=== PATIENT | female | born 1940 | race Caucasian/White ===

== ENCOUNTER 2022-04-12 16:24 | Outpatient (RCR) | payer MEDICARE, OTHER, SELFPAY ==
--- NOTE | 2022-04-12 17:57 | PT.OPEX ---
PT [place] Outpatient Eval PT [facility] Outpatient Eval Start: 04/12/22 11:50 Freq: Status: Active Protocol: Document 04/12/22 11:50 PAPO (Rec: 04/12/22 11:53 PAPO [id number]) E-signed By Sergio Siddiqi PT Physical Therapy Outpatient Evaluation Insurance Information Insurance Name Medicare B Insurance Information/Comments [facility] Medical Diagnosis Right knee OA Treating Diagnosis Right knee pain Decreased right knee ROM Referring MD Montalvo Subjective Subjective Pt. states that she will be having a right TKA surgery next week due to progressive OA symptoms. She lives with her in indep. living apartment with assisted living attached at the [facility]. She will either be going to a SNF or to her son's home following DC from hospital. If she goes to her son's, she will be on one floor with 7 steps and railings from main floor with bedroom and bathroom on that level. She has a walker, cane, raised toilet seat and a shower chair at her son's home . PMH includes diabetes, CA and OA. She hasn't been using an assistive device up until this point. Pain Comments 06/08 Date of Last Physician Visit 03/05/22 Date of Surgery (If applicable) 04/17/22 Preferred Name Destiney Objective Range of Motion 5-10 degree extension lag Strength 4/5 quad set on right Swelling mild Assessment Assessment/Impression Objectively, pt. demonstrates; 5-10 degree right knee extension lag with 125 degrees of flexion; 4/5 right quad setting/strength; ambulation without assistive device; good UE ROM and strength; and fair /good core strength. She will benefit from skilled therapy for a one time education/ instruction in pre/post. operative HEP, and then therapy 2 times a week after surgery. Primary Functional Limitations walking, steps, squatting, dancing Plan of Care Rehabilitation Potential Excellent Physical Therapy Goals 1. Pt. will be indep. with HEP for self maintenance in 10-12 weeks. 2. Pt. will be able to walk without assistive device in 10 -12 weeks. 3. Pt. will demonstrate improved/fucntional quad and core strength in 10-12 weeks. 4. Pt. will demonstrate functional knee AROM to allow regular ADL's in 10-12 weeks. Coordination/Communication With Referral Source Treatment Plan/Direct Interventions Gait Training,Ice/Cold/ Vasopneumatic,Joint Mobilization,Manual Therapy, Neuromuscular Re-ed,Self-Care/ Home Management,Therapeutic Activities,Therapeutic Exercises Frequency/Duration One pre-op visit, then skilled therapy 2 times a week for 6- 8 weeks following surgery. Patient Will Be Discharged From Therapy Independent w/HEP, Independently Progressing Evaluation Billing Complexity Moderate Certification Information Initial Certification Date 04/12/22 Ending Certification Date 07/05/22 Provider Signature Shows Agreement With POC & Medical Necessity Physician Signature & Date Requested Please Sign/Date Here Physician Comment/Change : Physician NPI Number #
== END 2022-06-01 14:33 | disposition home or self-care (01) ==
PROVIDERS: Visit Provider Orthopaedic Surgery
DX: Z96.651 Presence of right artificial knee joint (principal); Z51.89 Encounter for other specified aftercare
CPT/HCPCS: 97110; 97162

== ENCOUNTER 2022-04-18 16:58 | Inpatient (IN) | payer MEDICARE, SELFPAY ==
--- NOTE | 2022-04-11 11:16 | PC.SOCIAL ---
Spoke with pt.'s daughter Jaelyn at [phone] regarding pt.'s upcoming surgery for a RTK on 04/17. Pt. lives independently at [facility] and family have noticed increased forgetfullness. Pt.'s father has a walker an cannot assist at home. Jaelyn and her brother cannot take pt. to their homes due to multiple stairs. Jaelyn wants to pursue a TCU bed for pt. at discharge. Discussed the limits of TCU bed availability. Jaelyn plans to call [facility] to see if pt. can have services after surgery if a TCU bed cannot be found. director field services will work on TCU placement after pt.'s surgery if no other safe discharge options are available.
[2022-04-17] VITALS (33 sets, daily range): BP systolic 126–171; BP diastolic 65–92; PULSE 7–91; RESP 14–16; TEMP 35.9–36.6; O2SAT 91–100; BMI 20.9
[2022-04-17] MEDS: ACETAMINOPHEN 500 MG TABLET 1000 MG PO ×3 (07:40→23:57)
[2022-04-17] MEDS: CELECOXIB 200 MG CAPSULE PO ×2 (07:40→21:11)
[2022-04-17] MEDS: OXYCODONE (CR) 10 MG TAB.ER.12H PO (07:40)
[2022-04-17] MEDS: SODIUM CHLORIDE 0.9 % (FLUSH) 10 ML SYRINGE IVF (08:00)
[2022-04-17] MEDS: LACTATED RINGERS 1000 ML 1,000 ML 100 ML IV (08:00)
[2022-04-17] MEDS: fentaNYL 100 MCG/2 ML inj IVP (08:30)
[2022-04-17] MEDS: MIDAZOLAM HCL 1 MG/ML inj IVP (08:30)
--- NOTE | 2022-04-17 08:37 | SUR.PREOP ---
TIME?OUT:?0829 PT/RN/MDA?VERIFICATION?OF?SURGICAL?SITE,?PROCEDURE,?AND?CONSENT OBTAINED?PRIOR?TO?INVASIVE?PROCEDURE.
[2022-04-17] MEDS: CEFAZOLIN 2 GM INJ IVP (09:42)
--- NOTE | 2022-04-17 10:14 | W.PM.NB ---
Nerve Block Nerve Block Time Seen by Provider: 08:34 Date Seen: 04/17/22 Type of block requested by surgeon for post-operative analgesia: adductor canal Side: right Time out performed: Yes Verification of patient name: Yes Verification of date of : Yes Site marking: site marked Name of person performing procedure: Marcel Continuous monitoring Was continuous monitoring of O2 sat, B/P, consulting marine engineer, recorded every 15 minutes?: Yes Procedure Checklist: sterile prep, needles and gloves Ultrasound guided. Images saved: Yes Medications given in 5ml increments after negative aspiration: Ropivicaine %: 0.5 mL: 20 Needle gauge: 20 Decadron (mg): 10 Precedex (mcg): 25 Patient tolerated procedure well: Yes Additional comments: Needle noted adjacent to nerve Block Charges Block Charge (with Pro Fee): Femoral Nerve Use of Ultrasound Machine for Block: Yes- US Guidance/pain block
--- NOTE | 2022-04-17 10:15 | P.NB_ITS ---
Nerve Block Nerve Block Time Seen by Provider: 08:34 Date Seen: 04/17/22 Type of block requested by surgeon for post-operative analgesia: geniculars Side: right Time out performed: Yes Verification of patient name: Yes Verification of date of : Yes Site marking: site marked Name of person performing procedure: Marcel Continuous monitoring Was continuous monitoring of O2 sat, B/P, ice cream freezer assistant, recorded every 15 minutes?: Yes Procedure Checklist: sterile prep, needles and gloves Medications given in 5ml increments after negative aspiration: Ropivicaine %: 0.5 mL: 9 Needle gauge: 25 Patient tolerated procedure well: Yes Block Charges Block Charge (with Pro Fee): Genicular Nerve Block Use of Ultrasound Machine for Block: No
--- NOTE | 2022-04-17 11:01 | CRLHL7_ITS ---
For Patients: As a result of the Cures Act, medical imaging exams and procedure reports are released immediately into your electronic medical record. You may view this report before your referring provider. If you have questions, please contact your health care provider. Indication: POST OPERATIVE Technique: Two views right knee Findings/Impression: Hardware from a right total knee arthroplasty is in satisfactory position. Bone alignment is normal. No sign of acute fracture. Postop changes are within normal limits. Dictated by Gus Bravo MD @ 04/17/2022 12:12:27 PM (Electronically Signed)
--- NOTE | 2022-04-17 11:02 | P.ORPRC_ITS ---
Procedure Note Date of procedure: 04/17/22 Procedure: PREOPERATIVE DIAGNOSIS: Right knee osteoarthritis POSTOPERATIVE DIAGNOSIS: Right knee osteoarthritis NAME OF OPERATION: Right total knee arthroplasty SURGEON: Javid Montalvo MD BUSINESS EDUCATION TEACHER: ORLANDO Boo ANESTHESIA: Spinal ESTIMATED BLOOD LOSS: 0 mL COMPLICATIONS: None SPECIMENS: None DRAINS: None PREOPERATIVE ANTIBIOTICS: Ancef 1 g IMPLANTS: 1. J&J Attune #4 posterior stabilized femur 2. #3 fixed-bearing tibia 3. #4 posterior stabilized, 5 mm fixed-bearing polyethylene 4. 35 patella INDICATIONS: The patient is a 81-year-old with a longstanding history of severe, unrelenting right knee pain secondary to end-stage (grade IV) right knee osteoarthritis. Despite appropriate nonoperative management, including activity modification, anti-inflammatories, diyf-wcl-amzogll pain medication, bracing, physical therapy, and injections they continue to have pain and disability. Operative intervention was offered. The risks, benefits and expected outcomes were discussed in detail. These included but were not limited to: Infection, bleeding, injury to blood vessel or nerve, venous thromboembolism. All questions were answered to their satisfaction. Use of an assistant professor of mathematics was necessary throughout the case for patient positioning and safety, soft tissue retraction, and closure. PROCEDURE: Spinal anesthesia was administered. The patient was placed supine on the operating table. The assistant professor of mathematics made sure the patient was positioned appropriately. The lower extremity was prepped and draped in the usual sterile fashion. The limb was exsanguinated with the Jassi bandage. The pneumatic tourniquet was inflated to 300 mmHg. A standard anterior incision was made with the knee in flexion. Subcutaneous dissection was sharply taken through fascial layer #1. Full-thickness medial and lateral flaps were elevated. The assistant professor of mathematics retracted the soft tissues and protected them throughout the case. A standard medial parapatellar approach was made. The patella was everted. The infrapatellar fat pad was preserved. The menisci and cruciate ligaments were sharply d?brided. Marginal osteophytes were d?brided with the rongeur. The drill was used to penetrate the femoral canal. The canal was aspirated and irrigated with pulse lavage. The intramedullary femoral guide was placed for a 5-degree valgus cut, removing 10 mm off the distal femur. The saw was used to make the cut. Whitesides line and the trans epicondylar axis were marked. The femoral sizing guide was pinned onto the distal femur. Three degrees of external rotation nicely parallels the transepicondylar axis. Pins were placed for posterior referencing. The four-in-one cutting guide was pinned onto the distal femur. The anterior, posterior, and chamfer cuts were made. The assistant professor of mathematics protected the collateral ligaments. The box cutting guide was pinned. The box cuts were made. The boxed trial was placed and was an excellent fit. Drill holes for the lugs were made. Attention was then turned to the proximal tibia. The extramedullary tibial guide was placed for a neutral varus/valgus cut with 5 degrees of posterior slope, removing 1 mm based off the medial tibial surface. The assistant professor of mathematics protected the collateral ligaments and the neurovascular bundle. The saw was used to make the cut. Trial components were placed. The knee was nicely balanced in both flexion and extension. The trial components were removed. The tray was placed in appropriate rotation, parallel to our tibial cutting pins. It was pinned by the assistant professor of mathematics and the drill and the punch were used. The tray was removed. The punch was used again. We placed a bone plug in the femoral canal. Attention was then turned to the patella. Kashia patellar thickness was 21 mm. The lobster claw resection guide was used with the 7.5 mm tom. The saw was used to make the cut. Drill holes were made by the assistant professor of mathematics. The trial was placed and was an excellent fit. Cancellous surfaces were irrigated with pulse lavage and thoroughly dried by the assistant professor of mathematics. We cemented the tibial component, then the femoral component. We impacted the 5 mm polyethylene onto the tibial tray. The knee was brought into full extension. We then cemented the patellar component. Excessive cement was removed. The cement was allowed to harden. The knee was taken through a range of motion and was found to be nicely balanced in both flexion and extension. The patella tracks centrally. The assistant professor of mathematics did a three minute dilute Betadine solution soak. The assistant professor of mathematics irrigated the wound with 3 liters of normal saline via pulse lavage. The assistant professor of mathematics reapproximated the extensor mechanism with #1 Vicryl in an interrupted [id number] fashion. The assistant professor of mathematics then ran the extensor mechanism with a #1 PDO Stratafix. The assistant professor of mathematics closed the subcutaneous tissues with a 3-0 Stratafix and the skin with a running 3-0 Stratafix in a subcuticular fashion. Glue was used to seal the skin. The assistant professor of mathematics placed a dry dressing, YAMILETH stocking, and Polar Care. Sponge and needle counts were correct x2. The patient tolerated the procedure well. There were no apparent complications. They were carefully transferred to the hospital bed and taken to the postanesthesia care unit in satisfactory condition. PLAN: The patient will be mobilized with physical therapy. Aspirin will be used for DVT prophylaxis. They will be discharged to home once medically appropriate.
--- NOTE | 2022-04-17 11:44 | W.ANESCHARGE ---
Anesthesia Charges Start Date/Time Anesthesia Start Date: 04/17/22 Anesthesia Start Time: 09:33 Stop Date/Time Anesthesia Stop Date: 04/17/22 Anesthesia Stop Time: 11:42 Summary Emergency: No Extremes of Age: Over 70-CPT 29152
[2022-04-17] MEDS: fentaNYL 100 MCG/2 ML inj 50 MCG IVP ×2 (12:01→12:10)
[2022-04-17] MEDS: HYDROmorphone 0.5 mg/0.5 ml inj IVP (12:53)
--- NOTE | 2022-04-17 13:00 | W.ANESCHARGE ---
Anesthesia Charges Start Date/Time Anesthesia Start Date: 04/17/22 Anesthesia Start Time: 09:33 Stop Date/Time Anesthesia Stop Date: 04/17/22 Anesthesia Stop Time: 11:42 Summary Emergency: No Extremes of Age: Over 71-CPT 75799
[2022-04-17] MEDS: LACTATED RINGERS 1000 ML 1,000 ML 75 ML IV (15:04)
--- NOTE | 2022-04-17 15:11 | PM.IMCN1 ---
Date of Consult Patient: Other Consult date: 04/17/22 Requesting Physician: Orthopedics Primary Care Provider: Not a Local Provider Consult Narrative Reason for consult: Medical management of comorbidities Narrative: Sadia Madsen is a 81 year old female who presented to the hospital today for an elective right TKA. There were no surgical or anesthetic complications noted during procedure. Patient's H&P reviewed, PCP is Tate Moise at [facility]. Past medical history significant for: Type 1 DM, HTN, hyperlipidemia History of blood clots: No Postoperative plan: May require SNF placement, lives in [facility]. Son lives locally, daughter in [place]. Review of Systems Status of ROS: Reports: unobtainable due to medical condition Narrative: Patient notes mild nausea, denies chest pain. Complete review of systems unobtainable due to cognitive impairment. [facility] Medical History (Updated 04/17/22 @ 22:34 by Joseline Nicholson MD) History of intestinal obstruction Hyperlipidemia Hypertension Neuropathy Type 1 diabetes mellitus Surgical History (Updated 04/17/22 @ 22:33 by Joseline Nicholson MD) H/O arthroscopic knee surgery H/O section History of appendectomy History of lumpectomy of right breast Social History Smoking Status: Never smoker Do you use any of these nicotine containing products: None How often do you have a drink containing alcohol: monthly or less Alcohol type: wine How many standard drinks containing alcohol do you have on a typical day: 1 or 2 How often do you have six or more drinks on one occasion: Never AUDIT-C Alcohol total score: 1 Non-prescribed substance use: denies use Caffeine: Yes (coffee 4 cups/day 2 mini cans diet coke/week) Are you using contraception or practicing any form of control: No Meds Home Medications and Allergies Home Medications Medication Instructions Recorded Confirmed Type insulin lispro 100 unit/mL 5 - 7 unit subcut TIDWM 02/12/22 04/17/22 History subcutaneous pen gabapentin 100 mg capsule 200 mg PO HS 02/14/22 04/17/22 History insulin glargine 100 unit/mL (3 11 unit subcut HS 02/14/22 04/17/22 History mL) subcutaneous pen (Lantus Solostar U-100 Insulin) losartan 50 mg tablet 50 mg PO DAILY 02/14/22 04/17/22 History atorvastatin 20 mg tablet 20 mg PO HS 04/11/22 04/17/22 History multivitamin (Daily Multi-Vitamin 1 tab PO DAILY 04/11/22 04/17/22 History tablet) biotin 5 mg capsule 5 mg PO DAILY 04/16/22 04/17/22 History Allergies Allergy/AdvReac Type Severity Reaction Status Date / Time aspirin Allergy Unknown Verified 04/17/22 07:11 lisinopril Allergy Unknown Verified 04/17/22 07:11 Exam Narrative: Exam Narrative: GEN: Alert and pleasant, sitting comfortably in bed HEENT: Normal external ears, EOMIs bilaterally CV: RRR, No concerning murmurs, rubs, or gallops R: LCTA bilaterally without concerning wheezing, rales, or rhonchi Ext: wwp, no concerning edema Skin: No concerning skin lesions or rashes on exposed skin Neuro: Nonfocal Psych: Appropriate, cognitive impairment evident Const: Vital Signs, click to edit/add: Vital Signs - 24 hr 04/17/22 08:07 04/17/22 08:30 04/17/22 08:45 Temperature 97.7 F Pulse Rate 78 75 64 Pulse Rate [Right Pulse Oximeter] Respiratory Rate 16 16 14 Blood Pressure 143/68 H 157/87 H 167/80 H Blood Pressure [Le ft Arm] Pulse Oximetry 98 99 100 Oxygen Delivery Me thod Room Air Nasal Cannula Nasal Cannula Oxygen Flow Rate 2 2 04/17/22 08:35 04/17/22 08:40 04/17/22 11:37 Temperature 97.7 F Pulse Rate 70 70 61 Pulse Rate [Right Pulse Oximeter] Respiratory Rate 16 14 16 Blood Pressure 167/78 H 163/79 H 139/72 Blood Pressure [Le ft Arm] Pulse Oximetry 99 100 96 Oxygen Delivery Me thod Nasal Cannula Nasal Cannula Room Air Oxygen Flow Rate 2 2 04/17/22 12:00 04/17/22 12:20 04/17/22 11:40 Temperature Pulse Rate 67 68 63 Pulse Rate [Right Pulse Oximeter] Respiratory Rate 16 16 16 Blood Pressure 171/87 H 164/88 H 145/76 H Blood Pressure [Le ft Arm] Pulse Oximetry 95 97 95 Oxygen Delivery Me thod Room Air Room Air Oxygen Flow Rate 04/17/22 11:45 04/17/22 11:50 04/17/22 11:55 Temperature Pulse Rate 62 67 68 Pulse Rate [Right Pulse Oximeter] Respiratory Rate 16 16 16 Blood Pressure 160/81 H 162/84 H 167/83 H Blood Pressure [Le ft Arm] Pulse Oximetry 96 95 96 Oxygen Delivery Me thod Room Air Oxygen Flow Rate 04/17/22 12:05 04/17/22 12:10 04/17/22 12:15 Temperature 97.7 F Pulse Rate 67 66 68 Pulse Rate [Right Pulse Oximeter] Respiratory Rate 16 16 16 Blood Pressure 171/87 H 169/79 H 159/85 H Blood Pressure [Le ft Arm] Pulse Oximetry 95 97 99 Oxygen Delivery Me thod Room Air Oxygen Flow Rate 2 04/17/22 12:40 04/17/22 12:47 04/17/22 12:30 Temperature 96.6 F L Pulse Rate Pulse Rate [Right Pulse Oximeter] 71 69 Respiratory Rate 16 16 Blood Pressure Blood Pressure [Le ft Arm] 148/92 H 143/82 H Pulse Oximetry 91 92 91 Oxygen Delivery Me thod Room Air Room Air Oxygen Flow Rate 04/17/22 12:30 04/17/22 12:30 04/17/22 13:00 Temperature 96.6 F L 96.6 F L Pulse Rate 69 Pulse Rate [Right Pulse Oximeter] 69 72 Respiratory Rate 16 16 16 Blood Pressure Blood Pressure [Le ft Arm] 143/82 H 143/82 H 147/69 H Pulse Oximetry 91 95 Oxygen Delivery Me thod Room Air Room Air Room Air Oxygen Flow Rate 2 04/17/22 13:16 04/17/22 14:04 04/17/22 13:45 Temperature Pulse Rate Pulse Rate [Right Pulse Oximeter] 71 74 72 Respiratory Rate 16 16 16 Blood Pressure Blood Pressure [Le ft Arm] 143/71 H 141/81 H 145/79 H Pulse Oximetry 95 97 92 Oxygen Delivery Me thod Room Air Room Air Room Air Oxygen Flow Rate 04/17/22 13:30 04/17/22 14:15 04/17/22 15:09 Temperature Pulse Rate Pulse Rate [Right Pulse Oximeter] 7 L 75 76 Respiratory Rate 16 16 16 Blood Pressure Blood Pressure [Le ft Arm] 153/75 H 154/79 H 152/66 H Pulse Oximetry 91 97 96 Oxygen Delivery Me thod Room Air Room Air Room Air Oxygen Flow Rate Assessment and Plan Assessment and plan (1) History of knee replacement, total: Problem comment: - R, 04/17/[address] Montalvo Status: Acute (2) Type 1 diabetes mellitus: Problem comment: - last A1C 11/3003/30/22 - Wears CGM - continue home dose of insulin at mealtimes and at bedtime, sliding scale as needed Status: Acute (3) Uses self-applied continuous glucose monitoring device: Status: Acute Plan - continue home insulin dosing with sliding scale correction - schedule Tylenol for pain control, p.r.n. oxycodone - prophylaxis per orthopedic surgery team - continue home meds for comorbidities - may require SNF placement given cognitive impairment and impulsivity
[2022-04-17] MEDS: METOCLOPRAMIDE 10 MG TABLET 5 MG PO (15:39)
[2022-04-17] MEDS: hydrOXYzine pamoate 25 MG CAPSULE PO (15:40)
--- NOTE | 2022-04-17 16:04 | PC.SOCIAL ---
Discharge planning- Phone call to pt's daughter, Jaelyn, at [phone]. Informed Jaelyn that there are no openings at the three SNF's in [place]. This worker will contact SNF outside of [place]. Jaelyn stated she is ok with that. Jaelyn stated if we are unable to locate a SNF for pt that the last option would be for pt to go to pt's son's home in [place] with home health care PT/OT in place. Pt's son has a one story home that pt would be able to get around in. Social Work will keep pt's daughter updated. Contacted the following SNF's for possible placement. Social Work will continue to follow up as necessary. 1. [facility]- No open beds. 2. [facility]- No open beds the rest of the week. 3. [facility]- No open beds the rest of the week. 4. [facility] in [place]- Phone call to Fani in admissions. There is possibly an opening. Faxed referral to [phone]. 5. [facility] in [place]- Phone call to Ophelia in admissions. Left a voicemail inquiring on bed availability. 6. [facility] in [place]- Faxed referral to [phone] also emailed referral to [place] in admissions at [email or web address].
[2022-04-17] MEDS: CEFAZOLIN 1 GM in 0.9 % SODIUM CHLORIDE Mini-bag 100 ML IVPB (17:52)
[2022-04-17] MEDS: INSULIN LISPRO 100 UNITS/ML SUBCUT ×2 (17:54→21:47)
--- NOTE | 2022-04-17 18:25 | PC.NURSE ---
end of shift. pt has been pleasant but sadly she has dementia. back from surgery @ 1230. right knee pain 2-5 she got IV and po meds. dressing is C/D/I. cryo cuff to the knee. teds and plexi are on. IV is patent. she is a fall risk and alarms are on. she was incontinent. she is up with 1 assist walker and GB. she is in the chair. she is eating, drinking and voiding. Brief is now on. she knows here name and is not sure of place. IS to 500. BS was 283 we are using pt cell phone and Blood sugar disk on the right arm. she got 6 unit of insulin isabela and 3 units s/s 9 total. miley PICKETT double checked insulin.
[2022-04-17] MEDS: ATORVASTATIN 10 MG TABLET 20 MG PO (21:11)
[2022-04-17] MEDS: SENNOSIDES 1 TAB TABLET 2 TAB PO (21:11)
[2022-04-17] MEDS: ASPIRIN 81 MG TABLET EC PO (21:11)
[2022-04-18] VITALS (7 sets, daily range): BP systolic 100–120; BP diastolic 50–62; PULSE 80–88; RESP 16–18; TEMP 36.5–36.8; O2SAT 88–99
[2022-04-18] MEDS: INSULIN LISPRO 100 UNITS/ML SUBCUT ×4 (02:24→17:36)
[2022-04-18] MEDS: CEFAZOLIN 1 GM in 0.9 % SODIUM CHLORIDE Mini-bag 100 ML IVPB ×2 (02:25→09:03)
--- NOTE | 2022-04-18 07:31 | PC.NURSE ---
: pt pleasant. Pt moved to room 243 to be closer to nurses' station, Pt confused, needs frequent reorientation. Pt does not call appropriately, has set off bed alarm several times. A x 1 with gb and walker, pt needs to be reminded to use the walker. VSS. Cryo cuff on. Dressing to knee CDI.
[2022-04-18 07:44] LABS: Potassium* 4.7 mmol/L (3.6-5.1); Sodium* 131 mmol/L (135-149)
[2022-04-18 07:47] LABS: Blood Urea Nitrogen* 31 mg/dL (7-30); Creatinine* 0.7 mg/dL (0.5-1.5); Est. Creatinine Clearance* 33.86; Estimated Glomerular Filt Rate 87 ml/min
[2022-04-18 08:04] LABS: Basophils Percent Auto 0.1 % (0.0-3.0); Hematocrit 32.2 % (33.0-51.0); Hemoglobin* 11.1 gm/dL (12.0-16.0); Immature Granulocytes Pct Auto 0.2 %; Lymphocytes Percent Auto 5.1 % (20-44); Mean Corpuscular HGB Conc 35 gm/dL (32-36); Mean Corpuscular Hemoglobin 32 pg (26-34); Mean Corpuscular Volume 92 fL (80-100); Monocytes Percent Auto 7.1 % (0.0-11.0); Neutrophils Percent Auto 87.5 % (42.0-72.0); Platelet Count* 263 K/uL (140-440); RDW Coefficient of Variation % 13.1 % (11.5-15.5); Red Blood Count 3.49 m/uL (4.00-5.20); White Blood Count* 17.93 K/uL (4.50-11.00)
[2022-04-18 08:10] LABS: Slide Review Reflex No
[2022-04-18] MEDS: ACETAMINOPHEN 500 MG TABLET 1000 MG PO ×3 (09:01→17:35)
[2022-04-18] MEDS: CELECOXIB 200 MG CAPSULE PO ×2 (09:02→20:35)
[2022-04-18] MEDS: hydrOXYzine pamoate 25 MG CAPSULE PO ×2 (09:02→18:41)
[2022-04-18] MEDS: SENNOSIDES 1 TAB TABLET 2 TAB PO ×2 (09:02→20:34)
[2022-04-18] MEDS: LOSARTAN POTASSIUM 50 MG TABLET PO (09:02)
[2022-04-18] MEDS: ASPIRIN 81 MG TABLET EC PO ×2 (09:02→20:35)
--- NOTE | 2022-04-18 09:06 | PC.NURSE ---
Verified insulin humalog 9 units subcutaneous this am with NIEVES Savage
[2022-04-18 11:04] LABS: Prothrombin Time 14.8 Seconds
--- NOTE | 2022-04-18 11:54 | PM.ORPN ---
Subjective Subjective Time Seen by Provider: 08:00 Date Seen: 04/18/22 Principal diagnosis: Status post right total knee arthroplasty 04/17/2022 Interval history: Destiney is comfortable this morning in the recliner in her room. I asked her about her aspirin allergy. She has she does not recall having an allergy to aspirin, however recalls it not doing much for her. Her daughter is phoned to ask her about she is aspirin allergy. She states she does not have an allergy to aspirin and does not know why it is on her chart. Upon discharge Destiney will either go to her son's or to a care home facility. Imaging Center Manager is working on her discharge location. Ortho Exam Narrative Exam Narrative: Alert and oriented x1. Patient is in no acute distress. Converses without labored breathing. Hearing is grossly intact. Ambulates with a walker. Examination of the right knee shows dressing is intact. Mild effusion. Mild soft tissue edema about the right knee. Bilateral calves are soft and nontender. CMS intact right lower extremity. Const Vital Signs, click to edit/add: Vital Signs - 24 hr 04/17/22 12:00 04/17/22 12:20 04/17/22 11:55 Temperature Pulse Rate 67 68 68 Pulse Rate [Right Pulse Oximeter] Respiratory Rate 16 16 16 Blood Pressure 171/87 H 164/88 H 167/83 H Blood Pressure [Left Arm] Pulse Oximetry 95 97 96 Oxygen Delivery Method Room Air Room Air Oxygen Flow Rate 04/17/22 12:05 04/17/22 12:10 04/17/22 12:15 Temperature 97.7 F Pulse Rate 67 66 68 Pulse Rate [Right Pulse Oximeter] Respiratory Rate 16 16 16 Blood Pressure 171/87 H 169/79 H 159/85 H Blood Pressure [Left Arm] Pulse Oximetry 95 97 99 Oxygen Delivery Method Room Air Oxygen Flow Rate 2 04/17/22 12:40 04/17/22 12:47 04/17/22 12:30 Temperature 96.6 F L Pulse Rate Pulse Rate [Right Pulse Oximeter] 71 69 Respiratory Rate 16 16 Blood Pressure Blood Pressure [Left Arm] 148/92 H 143/82 H Pulse Oximetry 91 92 91 Oxygen Delivery Method Room Air Room Air Oxygen Flow Rate 04/17/22 12:30 04/17/22 12:30 04/17/22 13:00 Temperature 96.6 F L 96.6 F L Pulse Rate 69 Pulse Rate [Right Pulse Oximeter] 69 72 Respiratory Rate 16 16 16 Blood Pressure Blood Pressure [Left Arm] 143/82 H 143/82 H 147/69 H Pulse Oximetry 91 95 Oxygen Delivery Method Room Air Room Air Room Air Oxygen Flow Rate 2 04/17/22 13:16 04/17/22 14:04 04/17/22 13:45 Temperature Pulse Rate Pulse Rate [Right Pulse Oximeter] 71 74 72 Respiratory Rate 16 16 16 Blood Pressure Blood Pressure [Left Arm] 143/71 H 141/81 H 145/79 H Pulse Oximetry 95 97 92 Oxygen Delivery Method Room Air Room Air Room Air Oxygen Flow Rate 04/17/22 13:30 04/17/22 14:15 04/17/22 15:09 Temperature Pulse Rate Pulse Rate [Right Pulse Oximeter] 7 L 75 76 Respiratory Rate 16 16 16 Blood Pressure Blood Pressure [Left Arm] 153/75 H 154/79 H 152/66 H Pulse Oximetry 91 97 96 Oxygen Delivery Method Room Air Room Air Room Air Oxygen Flow Rate 04/17/22 15:14 04/17/22 15:00 04/17/22 16:00 Temperature 97.0 F L Pulse Rate Pulse Rate [Right Pulse Oximeter] 79 75 Respiratory Rate 16 Blood Pressure Blood Pressure [Left Arm] 139/72 Pulse Oximetry 96 94 Oxygen Delivery Method Room Air Oxygen Flow Rate 04/17/22 18:10 04/17/22 17:00 04/17/22 19:00 Temperature 97.8 F Pulse Rate Pulse Rate [Right Pulse Oximeter] 91 63 91 Respiratory Rate 14 16 16 Blood Pressure Blood Pressure [Left Arm] 137/84 126/67 137/65 Pulse Oximetry 95 95 97 Oxygen Delivery Method Room Air Room Air Room Air Oxygen Flow Rate 2 04/17/22 22:16 04/17/22 22:16 04/17/22 23:00 Temperature 97.7 F Pulse Rate Pulse Rate [Right Pulse Oximeter] 91 89 Respiratory Rate 16 16 Blood Pressure Blood Pressure [Left Arm] 130/65 Pulse Oximetry 97 97 Oxygen Delivery Method Room Air Oxygen Flow Rate 04/18/22 03:00 04/18/22 07:15 04/18/22 07:15 Temperature 97.7 F Pulse Rate Pulse Rate [Right Pulse Oximeter] 85 Respiratory Rate 16 16 Blood Pressure Blood Pressure [Left Arm] 105/52 L Pulse Oximetry 92 92 Oxygen Delivery Method Room Air Oxygen Flow Rate 04/18/22 07:15 04/18/22 11:00 Temperature 98.0 F Pulse Rate Pulse Rate [Right Pulse Oximeter] 85 80 Respiratory Rate 16 16 Blood Pressure Blood Pressure [Left Arm] 110/50 L Pulse Oximetry 93 Oxygen Delivery Method Room Air Oxygen Flow Rate Assessment and Plan Assessment and plan (1) History of knee replacement, total: Problem details: - R, 04/17/[address] Montalvo Status: Acute Assessment and Plan: Plan for discharge is to a care home facility or with her son as soon as this can be arranged by medical social worker. DVT prophylaxis includes aspirin 81 mg twice daily x1 month, Brendon stockings x1 month may remove for 1 hr per day, frequent ambulation Remove dressing in 1 week. Observe wound and phone Orthopedics with any questions or concerns Return to clinic in 1 week for a wound check Return to clinic in [address] Montalvo Minimize narcotic use. Wean off and discontinue soon as possible. Activities as tolerated. No strenuous activity. Outpatient physical therapy as scheduled if she goes to her sons. PT and OT daily at care home facility otherwise. Ice and elevate the operative extremity. No restriction on ice. Her discharge medications have been sent to her pharmacy. If she goes to care home facility, her medications will need to be sent elsewhere and canceled at her pharmacy. (2) Type 1 diabetes mellitus: Problem details: - last A1C 11/3003/30/22 - Wears CGM - continue home dose of insulin at mealtimes and at bedtime, sliding scale as needed Status: Acute (3) Uses self-applied continuous glucose monitoring device: Status: Acute
--- NOTE | 2022-04-18 12:30 | PC.SOCIAL ---
Discharge planning- Received a phone call from Easton at [facility] in [place]. [facility] has accepted pt for admission. [facility] is requesting PT/OT notes to submit to insurance for approval. Phone call from pt's daughter, Jaelyn, requesting an update. Informed Jaelyn that [facility] in [place] has accepted pt for admission and just has to get an insurance authorization. Jaelyn will discuss with her brother, Rajeev, on pt going to SNF. Jaelyn states that Rajeev would like to take pt to his home but she doesn't believe that family can meet pt's needs and wants to have a safe plan in place. Met with pt and pt's son, Rajeev ([phone]) in pt's room along with Arminda Petty from OT. Discussed SNF vs. pt going home with outpatient therapy. Rajeev states that he thinks the safest plan is for pt to go to a SNF. Faxed PT/OT notes to Easton. Easton will call social work when she has the approval. Social work will continue to follow up as necessary.
--- NOTE | 2022-04-18 16:03 | PM.IMPN1 ---
Progress Note: A&P Assessment and plan (1) History of knee replacement, total: Problem details: - R, 04/17/[address] Montalvo Status: Acute (2) Type 1 diabetes mellitus: Problem details: - last A1C 11/3003/30/22 - Wears CGM - continue home dose of insulin at mealtimes and at bedtime, sliding scale as needed Status: Acute (3) Uses self-applied continuous glucose monitoring device: Status: Acute (4) Osteoarthritis of right knee: Problem details: medial and patellofemoral compartment osteoarthritis Status: Acute Plan 1. Reviewed with patient and her son her status. 2. May be discharged from the hospital when we have safe discharge disposition plan. surgical services coordinator working with patient and son to try to establish this. 3. Continue with supportive efforts. 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 Feeling well and doing well. Tolerating physical and occupational therapy support services. Denies chest heaviness, pressure, tightness, or pain. Denies syncope or near-syncope. Denies orthostasis, lightheadedness, or vertigo. Denies nausea or vomiting. No dyspnea, dyspnea with exertion, paroxysmal nocturnal dyspnea, or orthopnea. Denies cough. No claudication. Ambulating the halls with walker with standby assist of 1. Exam Narrative: Exam Narrative: No acute distress. Appears comfortable. Alert and oriented to self, place, time, and even situation. Lungs clear to auscultation. Heart tones with regular rhythm. Abdomen is active bowel sounds, soft, nontender. Standby assist of 1 for transfer, station, and gait. Utilizes gait belt. No focal motor neurologic deficits. Const: Vital Signs, click to edit/add: Vital Signs - 24 hr 04/17/22 18:10 04/17/22 17:00 04/17/22 19:00 Temperature 97.8 F Pulse Rate [Right Pulse Oximeter] 91 63 91 Respiratory Rate 14 16 16 Blood Pressure [Le ft Arm] 137/84 126/67 137/65 Pulse Oximetry 95 95 97 Oxygen Delivery Me thod Room Air Room Air Room Air Oxygen Flow Rate 2 04/17/22 22:16 04/17/22 22:16 04/17/22 23:00 Temperature 97.7 F Pulse Rate [Right Pulse Oximeter] 91 89 Respiratory Rate 16 16 Blood Pressure [Le ft Arm] 130/65 Pulse Oximetry 97 97 Oxygen Delivery Me thod Room Air Oxygen Flow Rate 04/18/22 03:00 04/18/22 07:15 04/18/22 07:15 Temperature 97.7 F Pulse Rate [Right Pulse Oximeter] 85 Respiratory Rate 16 16 Blood Pressure [Le ft Arm] 105/52 L Pulse Oximetry 92 92 Oxygen Delivery Me thod Room Air Oxygen Flow Rate 04/18/22 07:15 04/18/22 11:00 Temperature 98.0 F Pulse Rate [Right Pulse Oximeter] 85 80 Respiratory Rate 16 16 Blood Pressure [Le ft Arm] 110/50 L Pulse Oximetry 93 Oxygen Delivery Me thod Room Air Oxygen Flow Rate Documenting provider has reviewed patient's vital signs: yes Labs Labs: Laboratory Results - last 24 hr 04/18/22 04/18/22 04/18/22 05:40 05:40 05:40 WBC 17.93 H RBC 3.49 L Hgb 11.1 L Hct 32.2 L MCV 92 MCH 32 MCHC 35 RDW Coeff of Cleo 13.1 Plt Count 263 Neut % (Auto) 87.5 H Lymph % (Auto) 5.1 L Green % (Auto) 7.1 Eos % (Auto) 0.0 Baso % (Auto) 0.1 Neut # (Auto) 15.70 H Lymph # (Auto) 0.90 Green # (Auto) 1.30 H Eos # (Auto) 0.00 Baso # (Auto) 0.00 INR 1.10 Sodium 131 L Potassium 4.7 BUN 31 H Creatinine 0.7 Estimated Creat Clear 33.86 Estimated GFR 87
--- NOTE | 2022-04-18 18:15 | PC.NURSE ---
end of shift.? pt is pleasant but sadly she has dementia. ?she was less confused today. ? right knee? pain 2-5? she got po meds. ?right knee dressing is C/D/I. ? cryo cuff to the knee.? teds and plexi are on.? SL is patent. ? she is a fall risk and alarms are on. ? she was incontinent. she has a brief on. ? she is up with 1 assist walker and GB. ? she is in the chair. ? she is eating, drinking and voiding. ? ? IS to 500. ? BS was 327/323/201? we are using pt cell phone and Blood sugar disk on the right arm. ? she got insulin. ?
[2022-04-18] MEDS: ATORVASTATIN 10 MG TABLET 20 MG PO (20:35)
[2022-04-18] MEDS: HYDROmorphone 0.5 mg/0.5 ml inj IVP (22:33)
[2022-04-19] MEDS: LORazepam 0.5 MG TABLET PO (01:23)
[2022-04-19] MEDS: ACETAMINOPHEN 500 MG TABLET 1000 MG PO (01:23)
[2022-04-19 03:00] VITALS: BP 115/66; PULSE 69; RESP 16; TEMP 36.4; O2SAT 96
--- NOTE | 2022-04-19 03:11 | ED.NURSE ---
Chart accessed due to family calling with concerns of glucose being low alert on his phone. MS RODNEY notified.
[2022-04-19 06:54] LABS: Basophils Absolute Auto 0.02 K/uL (0.00-0.30); Basophils Percent Auto 0.2 % (0.0-3.0); Eosinophils Absolute Auto 0.12 K/uL (0.00-0.50); Eosinophils Percent Auto 1.3 % (0.0-7.0); Hematocrit 28.1 % (33.0-51.0); Hemoglobin* 9.7 gm/dL (12.0-16.0); Immature Granulocytes Abs Auto 0.01 K/uL (0.00-0.30); Immature Granulocytes Pct Auto 0.1 %; Lymphocytes Percent Auto 15.6 % (20-44); Mean Corpuscular HGB Conc 35 gm/dL (32-36); Mean Corpuscular Hemoglobin 32 pg (26-34); Mean Corpuscular Volume 92 fL (80-100); Monocytes Percent Auto 9.2 % (0.0-11.0); Neutrophils Percent Auto 73.6 % (42.0-72.0); Platelet Count* 224 K/uL (140-440); RDW Coefficient of Variation % 13.4 % (11.5-15.5); Red Blood Count 3.07 m/uL (4.00-5.20); White Blood Count* 9.21 K/uL (4.50-11.00)
[2022-04-19 07:01] LABS: Slide Review Reflex No
[2022-04-19 07:07] LABS: Potassium* 4.1 mmol/L (3.6-5.1); Sodium* 131 mmol/L (135-149)
[2022-04-19 07:10] LABS: Creatinine* 0.7 mg/dL (0.5-1.5); Est. Creatinine Clearance* 33.86; Estimated Glomerular Filt Rate 87 ml/min
[2022-04-19 07:11] LABS: Blood Urea Nitrogen* 40 mg/dL (7-30)
--- NOTE | 2022-04-19 07:15 | P.ORPN_ITS ---
Subjective Subjective Time Seen by Provider: 07:00 Date Seen: 04/19/22 Principal diagnosis: Status post right total knee arthroplasty 04/17/2022 Interval history: Destiney is comfortable this morning. [facility] Ortho Exam Narrative Exam Narrative: Alert and oriented x1. Patient is in no acute distress. Converses without labored breathing. Hearing is grossly intact. Dressing clean, dry, and intact. Edema about the knee. Jayg-zi-bojweugf effusion. CMS intact right lower extremity. Const Vital Signs, click to edit/add: Vital Signs - 24 hr 04/18/22 11:00 04/18/22 16:15 04/18/22 16:15 Temperature 98.0 F 97.7 F Pulse Rate [Right Pulse Oximeter] 80 84 Respiratory Rate 16 18 Blood Pressure [Left Arm] 110/50 L 100/60 Pulse Oximetry 93 98 98 Oxygen Delivery Method Room Air Room Air 04/18/22 16:18 04/18/22 19:00 04/18/22 23:00 Temperature 98.2 F Pulse Rate [Right Pulse Oximeter] 84 88 Respiratory Rate 18 16 Blood Pressure [Left Arm] 119/62 Pulse Oximetry 96 88 Oxygen Delivery Method 04/18/22 23:00 04/18/22 23:00 04/19/22 03:00 Temperature 97.8 F 97.6 F Pulse Rate [Right Pulse Oximeter] 88 80 69 Respiratory Rate 16 18 16 Blood Pressure [Left Arm] 120/62 115/66 Pulse Oximetry 99 96 Oxygen Delivery Method Room Air Assessment and Plan Assessment and plan (1) History of knee replacement, total: Problem details: - R, 04/17/[address] Montalvo Status: Acute Assessment and Plan: Destiney will discharge when rn social work finds placement. Orthopedic discharge meds will need to be canceled and resent to the [facility]dc facility. (2) Type 1 diabetes mellitus: Problem details: - last A1C 11/3003/30/22 - Wears CGM - continue home dose of insulin at mealtimes and at bedtime, sliding scale as needed Status: Acute (3) Uses self-applied continuous glucose monitoring device: Status: Acute (4) Osteoarthritis of right knee: Problem details: medial and patellofemoral compartment osteoarthritis Status: Acute
[2022-04-19 07:29] LABS: INR 1.24 (0.91-1.10); Prothrombin Time 16.4 Seconds
--- NOTE | 2022-04-19 07:36 | PC.NURSE ---
VSS on RA. Patient and oriented with confusion. Pain managed with scheduled Tylenol and PRN Dilaudid and Ativan for sleep. patient was up in the ingram midnight looking for her . Difficult to redirect.
[2022-04-19 08:03] VITALS: BP 142/70; PULSE 86; RESP 16; TEMP 37; O2SAT 95
[2022-04-19] MEDS: LOSARTAN POTASSIUM 50 MG TABLET PO (08:58)
[2022-04-19] MEDS: ASPIRIN 81 MG TABLET EC PO (08:58)
[2022-04-19] MEDS: SENNOSIDES 1 TAB TABLET 2 TAB PO (08:58)
[2022-04-19] MEDS: CELECOXIB 200 MG CAPSULE PO (08:58)
[2022-04-19] MEDS: INSULIN LISPRO 100 UNITS/ML SUBCUT ×2 (08:59→13:30)
[2022-04-19 11:16] VITALS: BP 164/88; PULSE 69; RESP 16; TEMP 37
--- NOTE | 2022-04-19 12:03 | PC.SOCIAL ---
Discharge planning- Placed a follow up phone call to Easton in admissions at [facility] at [phone]. Easton informed that she received the approval from pt's insurance and would like to plan for a 3:00 pm admission at [facility]. Pt will will discharge from [facility] at 2:00 pm. Phone call to pt's son, Rajeev, at [phone]. There was no answer, left a voicemail for Rajeev. Phone call to pt's daughter, Jaelyn, at [phone]. There was no answer, left a voicemail. Provided update to charge nurse then was transferred into pt's room as son, Rajeev, was arriving in pt's room. Discussed discharge plans with pt's son. Pt's son will plan to transport pt to [facility] at 2:00 pm. Provided update to charge nurse along with [facility]'s fax number [phone], admissions email [email or web address], and nurse to nurse number for [facility] of [phone]. Social Work will follow up as necessary.
--- NOTE | 2022-04-19 12:26 | PC.SOCIAL ---
Completed preadmission screening for pt to admit to [facility] in [place] on 04/19/22. Confirmation #[id number]. E-mailed a copy to [facility] at [email or web address].
--- NOTE | 2022-04-19 14:15 | PC.NURSE ---
Pt. transferred to [facility] in [place]. Raeno-en-jwynf report given to Nurse Juanita at [facility].
--- NOTE | 2022-04-19 18:50 | P.DS_ITS ---
DS: Providers Provider Time Seen by Provider: 10:00 Date Seen: 04/19/22 Date of admission: 04/18/22 16:58 Primary care physician: Not a Local Provider Admitting Clinician: Javid Montalvo MD Consults: 04/17/22 12:32 Consult to Occupational Therapy [CONS] Routine Comment: Reason(s) for OT Consult:: ADLs Prior to Discharge Any Restrictions?:: See Comment Comment: See nursing activity order for any restrictions. Consult to Physical Therapy [CONS] Routine Comment: Ambulate in the ingram today. Reason(s) for PT Consult:: TKA TX Protocol POD#0 Any Restrictions?:: See Comment Comment: See nursing activity order for any restrictions. Consult to Physician [CONS] Routine Comment: Consulting Provider: Hospitalists Has provider been notified: No Consult to Mid Level Project Manager [CONS] Routine Comment: Reason for Consult:: Discharge Planning Needs Attending Physician on discharge: Javid Montalvo MD Date of Discharge: 04/19/22 DS: Diagnosis Discharge Diagnosis (1) Osteoarthritis of right knee: Status: Acute Problem details: medial and patellofemoral compartment osteoarthritis (2) History of knee replacement, total: Status: Acute Problem details: - R, 04/17/[address] 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 There were no surgical or anesthetic complications noted during procedure. On presentation to the hospital it became apparent that patient will require SNF placement postoperatively, that she lives in the [facility]. Son lives locally, daughter in [place]. Status at Discharge Functional status at discharge: uses cane/walker Overall status at discharge: patient is progressing back to baseline Time Spent with Patient Time attestation: Total time spent providing and/or coordinating discharge services: Time spent: Less than 30 minutes Exam Narrative: Exam Narrative: No acute distress.? Appears comfortable.? Alert and oriented to self, place, and in part to time and situation. She has been more sleepy this morning. Did receive lorazepam to help get sleep last night per Orthopedic surgery order. Lungs clear to auscultation.? Heart tones with regular rhythm.? Abdomen is active bowel sounds, soft, nontender.? Standby assist of 1 for transfer, station, and gait.? Utilizes gait belt. No focal motor neurologic deficits. Const: Vital Signs, click to edit/add: Vital Signs - 24 hr 04/18/22 19:00 04/18/22 23:00 04/18/22 23:00 Temperature 98.2 F Pulse Rate Pulse Rate [Right Pulse Oximeter] 88 88 Respiratory Rate 16 16 Blood Pressure Blood Pressure [Le ft Arm] 119/62 Pulse Oximetry 96 88 Oxygen Delivery Me thod 04/18/22 23:00 04/19/22 03:00 04/19/22 08:03 Temperature 97.8 F 97.6 F Pulse Rate Pulse Rate [Right Pulse Oximeter] 80 69 Respiratory Rate 18 16 Blood Pressure Blood Pressure [Le ft Arm] 120/62 115/66 Pulse Oximetry 99 96 95 Oxygen Delivery Me thod Room Air 04/19/22 08:03 04/19/22 11:16 Temperature 98.6 F 98.6 F Pulse Rate 69 Pulse Rate [Right Pulse Oximeter] 86 Respiratory Rate 16 16 Blood Pressure 164/88 H Blood Pressure [Le ft Arm] 142/70 H Pulse Oximetry 95 Oxygen Delivery Me thod Room Air Documenting provider has reviewed patient's vital signs: yes DS: Data Data Completed and Pending Labs on day of discharge: Labs from last 24 hours 04/19/22 04/19/22 04/19/22 05:38 05:38 05:38 WBC 9.21 RBC 3.07 L Hgb 9.7 L Hct 28.1 L MCV 92 MCH 32 MCHC 35 RDW Coeff of Cleo 13.4 Plt Count 224 Neut % (Auto) 73.6 H Lymph % (Auto) 15.6 L [place] % (Auto) 9.2 Eos % (Auto) 1.3 Baso % (Auto) 0.2 Neut # (Auto) 6.80 Lymph # (Auto) 1.40 [place] # (Auto) 0.80 Eos # (Auto) 0.12 Baso # (Auto) 0.02 INR 1.24 H Sodium 131 L Potassium 4.1 BUN 40 H Creatinine 0.7 Estimated Creat Clear 33.86 Estimated GFR 87 Discharge Plan Discharge Disposition: Xfer SNF Date of Admission: 04/18/22 16:58 Attending Provider on Discharge: Javid Montalvo Consulting Providers: Anson Henriquez Primary Care Provider: Provider,Not a Local Condition: Stable Anticipated Discharge Date/Time: 04/19/22 11:30 Discharge Medications: New acetaminophen 500 mg capsule 500 - 1,000 mg PO Q6H MDD 4000mg per day PRN (Reason: pain) Qty: 100 0RF aspirin [Aspirin Childrens] 81 mg tablet,chewable 81 mg PO BID 30 Days Qty: 60 0RF oxycodone 5 mg Tablet 2.5 - 5 mg PO Q4-6H MDD 6 tabs per day PRN (Reason: Pain) Qty: 42 0RF Rx Instructions: Minimize. Discontinue as soon as possible sennosides [Senna Lax] 8.6 mg Tablet 17.2 mg PO BID PRN (Reason: constipation) Qty: 100 0RF Continued insulin lispro 100 unit/mL insulin pen 5 - 7 unit subcut TIDWM Rx Instructions: 5 UNITS WITH BREAKFAST 7 UNITS WITH LUNCH 6 UNITS WITH DINNER AND SLIDING SCALE CORRECTION insulin glargine [Lantus Solostar U-100 Insulin] 100 unit/mL (3 mL) insulin pen 11 unit subcut HS gabapentin 100 mg capsule 200 mg PO HS losartan 50 mg tablet 50 mg PO DAILY atorvastatin 20 mg tablet 20 mg PO HS multivitamin [Daily Multi-Vitamin] Tablet 1 tab PO DAILY biotin 5 mg capsule 5 mg PO DAILY Discharge Orders: Discharge Order (Routine); Ordered 04/19/22 Ordered By: Anson Henriquez Additional Instructions: Physical therapy and occupational therapy daily if discharging to a custodial facility Physical therapy outpatient as schedualed otherwise. Check blood sugar ACHS Activity Level: Activity as Tolerated and No strenuous activity Discharge Diet: Diabetic Follow Up Appointments: Keri Edmondson PA-C [Physician Amusement Ride Inspector] - 04/25/22 11:00 am Forms: Work/School Release Admit to: SNF Discharge Potential: Fair Length of Stay: <30 days Can use facility standing orders?: Yes Code Status: Full Code TEDs: Bilateral Knee Rehab Potential: Fair Therapy: Physical Therapy and Occupational Therapy Therapy Orders: Evaluate and Treat Orders are good >30 days: Yes Signature: Anson Henriquez
== END 2022-04-19 14:14 | DRG 470 ==
LOC: OR 23:19 → MEDSURG 04-19 08:27
PROVIDERS: Admitting Provider Orthopaedic Surgery; Visit Provider Orthopaedic Surgery
PROC: (CPT 27447; principal; 2022-04-17 10:00)
DX: M17.11 Unilateral primary osteoarthritis, right knee (principal); E10.40 Type 1 diabetes mellitus with diabetic neuropathy, unspecified; Z79.4 Long term (current) use of insulin; M25.561 Pain in right knee; Z97.8 Presence of other specified devices; G30.1 Alzheimer's disease with late onset; F02.80 Dementia in other diseases classified elsewhere, unspecified severity, without behavioral disturbance, psychotic disturbance, mood disturbance, and anxiety; I10 Essential (primary) hypertension; E78.5 Hyperlipidemia, unspecified
CPT/HCPCS: 01402; 36415; 64447; 64454; 73560; 76942; 82565; 82962; 84132; 84295; 84520; 85025; 85610; 94761; 97110; 97116; 97161; 97165; 97530; 97535; 99100; A9270; C1776; J0690; J1100; J1170; J2250; J2704; J2795; J3010; J7120

== ENCOUNTER 2022-05-17 07:58 | Outpatient (CLI) | payer MEDICARE, SELFPAY ==
--- NOTE | 2022-05-17 08:15 | CRLHL7_ITS ---
For Patients: As a result of the Century Cures Act, medical imaging exams and procedure reports are released immediately into your electronic medical record. You may view this report before your referring provider. If you have questions, please contact your health care provider. Technique: Double-contrast esophagram performed after the uneventful administration of effervescent crystals and thick barium followed by thin barium. Fluoroscopy time 42 second. Indication: Dysphagia Comparison: None. Findings: Normal passage of contrast through the esophagus. No stricture or ulcer. No achalasia or mass. No diverticulum. Tertiary contractions are present involving the distal esophagus with associated delayed esophageal clearance. Spontaneous reflux noted. A tiny sliding hiatal hernia is present. Impression: Large volume spontaneous reflux with distal esophageal reflux esophagitis and tiny sliding hiatal hernia. Delayed esophageal clearance. Dictated by Gus Bravo MD @ 05/17/2022 9:17:44 AM (Electronically Signed)
== END 2022-05-17 07:59 | disposition home or self-care (01) ==
PROVIDERS: PCP Family Medicine; Visit Provider Family Medicine
DX: R13.14 Dysphagia, pharyngoesophageal phase (principal); K21.9 Gastro-esophageal reflux disease without esophagitis
CPT/HCPCS: 74221

== ENCOUNTER 2022-08-02 12:56 | Emergency (ER) | payer MEDICARE, SELFPAY ==
[2022-08-02] VITALS (18 sets, daily range): BP systolic 102–201; BP diastolic 60–111; PULSE 70–82; RESP 18–20; O2SAT 92–100; BMI 20.6
--- NOTE | 2022-08-02 13:33 | CRLHL7_ITS ---
For Patients: As a result of the Century Cures Act, medical imaging exams and procedure reports are released immediately into your electronic medical record. You may view this report before your referring provider. If you have questions, please contact your health care provider. INDICATION: Fall TECHNIQUE: CT head without contrast. COMPARISON: None. FINDINGS: CSF spaces: Within normal limits for age. Brain parenchyma: Diffuse cerebral atrophy. Patterson-white differentiation is distinct. Mild low-density in the deep white matter. No mass effect or intracranial bleed. Skull base and calvarium: Trace mucosal thickening paranasal sinuses. Left temporomandibular joint osteoarthritis. The visualized orbits are grossly unremarkable. No skull fractures. IMPRESSION: 1. No calvarial fracture or intracranial bleed. 2. Cerebral atrophy with nonspecific white matter disease, likely microangiopathy. Please note that all CT scans at this facility use dose modulation, iterative reconstruction, and/or weight-based dosing when appropriate to reduce radiation dose to as low as reasonably achievable. Dictated by Iam Ratliff MD @ 08/02/2022 3:21:09 PM (Electronically Signed)
--- NOTE | 2022-08-02 13:33 | CRLHL7_ITS ---
For Patients: As a result of the Cures Act, medical imaging exams and procedure reports are released immediately into your electronic medical record. You may view this report before your referring provider. If you have questions, please contact your health care provider. INDICATION: Fall TECHNIQUE: CT cervical spine without contrast. COMPARISON: None FINDINGS: Vertebrae: Alignment is normal. There are no fractures or suspicious bony lesions. Discs and facet joints: Facet hypertrophy C2-3 without significant stenosis. Facet hypertrophy C3-4 causing moderate right foraminal stenosis. Facet hypertrophy C4-5 without significant stenosis. Facet hypertrophy and disc space narrowing C5-6 without significant stenosis. Facet hypertrophy with posterior osteophytes and some disc space narrowing at C6-7 causing mild right foraminal stenosis facet hypertrophy C7-T1 without significant stenosis. Extraspinal findings: Biapical pleural parenchymal scarring. Hypodense right lobe thyroid nodule measuring 7 millimeters. IMPRESSION: 1. Multilevel degenerative changes cervical spine without evidence of cervical spine fracture. 2. Hypodense nodule right lobe thyroid. Follow-up outpatient ultrasound suggested for further characterization. Please note that all CT scans at this facility use dose modulation, iterative reconstruction, and/or weight-based dosing when appropriate to reduce radiation dose to as low as reasonably achievable. Dictated by Iam Ratliff MD @ 08/02/2022 3:32:12 PM (Electronically Signed)
--- NOTE | 2022-08-02 13:40 | ED_ITS ---
HPI - Fall General Chief Complaint: Fall/Minor Trauma Stated Complaint: Fell this morning, injured nose Time Seen by Provider: 08/02/22 13:08 History of Present Illness HPI Narrative: Patient is 82-year-old woman who lives at the [facility]. She awoke this morning on the floor and was not certain how she got there. Patient has abrasion on the right side of her nose and across the bridge of her nose. She states that she did have bright red blood on the her nose which woke up this morning but she has no further bleeding. She does take aspirin 81 mg daily. Patient has had other similar episodes of confusion as well as other of previous falls. Patient has no memory of the events. Patient went to physical therapy this morning and due to the obvious damage to her nose she was sent in for further evaluation. Patient states that she has no pain or other difficulties. Patient otherwise is feeling well. Her son is with her who corroborates that the patient's memory is worsening. She has long-term diabetic and her blood sugars have been somewhat labile. Patient has had brief periods of confusion throughout the day the last several weeks. Related Data Home Medications Medication Instructions Recorded Confirmed insulin lispro 100 unit/mL 5 - 7 unit subcut TIDWM 02/12/22 06/06/22 subcutaneous pen gabapentin 100 mg capsule 200 mg PO HS 02/14/22 06/06/22 insulin glargine 100 unit/mL (3 11 unit subcut HS 02/14/22 06/06/22 mL) subcutaneous pen (Lantus Solostar U-100 Insulin) losartan 50 mg tablet 50 mg PO DAILY 02/14/22 06/06/22 atorvastatin 20 mg tablet 20 mg PO HS 04/11/22 06/06/22 multivitamin (Daily Multi-Vitamin 1 tab PO DAILY 04/11/22 06/06/22 tablet) biotin 5 mg capsule 5 mg PO DAILY 04/16/22 06/06/22 Previous Rx's Medication Instructions Recorded acetaminophen 500 mg capsule 500 - 1,000 mg PO Q6H PRN pain 04/19/22 #100 caps aspirin 81 mg chewable tablet 81 mg PO BID for DVT prophylaxis 04/19/22 (Aspirin Childrens) 30 days #60 tabs Allergies Allergy/AdvReac Type Severity Reaction Status Date / Time No Known Drug Allergies Allergy Verified 08/02/22 13:08 Review of Systems Status of ROS: Reports: 10 or more systems reviewed and unremarkable except as noted in History and below [facility] Medical History History of intestinal obstruction ?Z87.19 - Personal history of other diseases of the digestive system (ICD-10) Hyperlipidemia ?E78.5 - Hyperlipidemia, unspecified (ICD-10) Hypertension ?I10 - Essential (primary) hypertension (ICD-10) Neuropathy ?G62.9 - Polyneuropathy, unspecified (ICD-10) Type 1 diabetes mellitus ?E10.9 - Type 1 diabetes mellitus without complications (ICD-10) Surgical History H/O arthroscopic knee surgery ?Z98.890 - Other specified postprocedural states (ICD-10) H/O section ?Z98.891 - History of uterine scar from previous surgery (ICD-10) History of appendectomy ?Z90.49 - Acquired absence of other specified parts of digestive tract (ICD- 10) History of lumpectomy of right breast ?Z98.890 - Other specified postprocedural states (ICD-10) 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) ?Z96.651 - Presence of right artificial knee joint (ICD-10) Social History Smoking Status: Never smoker Do you use any of these nicotine containing products: None Second hand tobacco smoke exposure: No How often do you have a drink containing alcohol: never How often do you have six or more drinks on one occasion: Never AUDIT-C Alcohol total score: 0 Non-prescribed substance use: denies use Caffeine: Yes (coffee 4 cups/day 2 mini cans diet coke/week) Are you using contraception or practicing any form of control: No service: No Exam Narrative: Exam Narrative: EXAM GENERAL: Patient appears comfortable and well. Slight swelling an minor bruising across the bridge of the nose. EYES: No scleral icterus. THYROID: no thyroid nodules or thyromegaly. LYMPH: No supraclavicular or cervical lymphadenopathy. SKIN: Visible skin seen during exam normal or with benign process only. EXT: No dependent lower extremity pedal edema. HEART: Regular rate and rhythm with no murmurs, rubs, or gallops. LUNGS: Clear to auscultation bilaterally with no crackles or wheezes. ABD: Soft, non tender, non distended. PSYCH: Good eye contact, speech is not pressured. Musculoskeletal no focal defects Neurologic: Cranial nerves 2-12 grossly intact no focal defects. Const: Vital Signs, click to edit/add: Vital Signs - 24 hr 08/02/22 13:09 08/02/22 13:25 08/02/22 13:51 Pulse Rate 79 Pulse Rate [Pulse Oximeter] 82 81 Respiratory Rate 20 18 Blood Pressure Blood Pressure [Ri ght Upper Arm] 119/60 102/60 Pulse Oximetry 97 98 100 Oxygen Delivery Me thod Room Air Room Air 08/02/22 14:14 08/02/22 14:15 08/02/22 14:30 Pulse Rate 81 80 75 Pulse Rate [Pulse Oximeter] Respiratory Rate Blood Pressure Blood Pressure [Ri ght Upper Arm] Pulse Oximetry 95 97 98 Oxygen Delivery Me thod 08/02/22 14:32 08/02/22 14:45 08/02/22 15:00 Pulse Rate 74 71 74 Pulse Rate [Pulse Oximeter] Respiratory Rate Blood Pressure 188/111 H Blood Pressure [Ri ght Upper Arm] Pulse Oximetry 98 97 99 Oxygen Delivery Me thod 08/02/22 15:02 08/02/22 15:15 08/02/22 15:30 Pulse Rate 74 70 72 Pulse Rate [Pulse Oximeter] Respiratory Rate Blood Pressure 201/95 H Blood Pressure [Ri ght Upper Arm] Pulse Oximetry 98 97 99 Oxygen Delivery Me thod 08/02/22 15:32 Pulse Rate 75 Pulse Rate [Pulse Oximeter] Respiratory Rate Blood Pressure 173/111 H Blood Pressure [Ri ght Upper Arm] Pulse Oximetry 99 Oxygen Delivery Me thod Course Course Hospital Course: A this point patient is seen and examined. Other than the slight ecchymosis and bruising across her nose I see no obvious findings on exam. CT of the head and cervical spine CBC basic metabolic panel UA troponin EKG ordered. Vital Signs Vital signs: Initial Vital Signs Temperature Source Temporal Artery Scan 08/02/22 13:09 Pulse Rate 82 08/02/22 13:09 Pulse Rhythm Regular 08/02/22 13:09 Respiratory Rate 20 08/02/22 13:09 Blood Pressure 119/60 08/02/22 13:09 Blood Pressure Mean 79 08/02/22 13:09 Blood Pressure Position Supine 08/02/22 13:09 Pulse Oximetry 97 08/02/22 13:09 Oxygen Delivery Method Room Air 08/02/22 13:09 Vital Signs Pulse Rate 82 08/02/22 13:09 Respiratory Rate 20 08/02/22 13:09 Blood Pressure 119/60 08/02/22 13:09 Pulse Oximetry 97 08/02/22 13:09 Oxygen Delivery Method Room Air 08/02/22 13:09 Pulse Rate 75 08/02/22 15:32 Respiratory Rate 18 08/02/22 13:25 Blood Pressure 173/111 H 08/02/22 15:32 Pulse Oximetry 99 08/02/22 15:32 Oxygen Delivery Method Room Air 08/02/22 13:25 MDM - Fall MDM Narrative Medical decision making narrative: Patient is a 82-year-old woman who woke up on the floor in her apartment at the [facility]. She has a abrasion on the bridge of her nose but otherwise appears to be uninjured. Patient is a negative CT of the head and neck although she does have an incidental thyroid nodule. Laboratory studies including CBC troponin basic metabolic panel UA are all normal. Patient has a normal exam and reasonably normal vital signs. At this time patient is treated and released. Patient id has a history of progressive dementia and is under the care of a neurologist. I will recommend thyroid ultrasound as an outpatient. Differential Diagnosis Differential diagnosis: Likely syncope, compression fracture, concussion with loss of consciousness and concussion without loss of consciousness Lab Data Labs: Lab Results 08/02/22 08/02/22 Range/Units 13:33 13:55 WBC 7.93 (4.50-11.00) K/uL RBC 3.74 L (4.00-5.20) m/uL Hgb 11.8 L (12.0-16.0) gm/dL Hct 35.6 (33.0-51.0) % MCV 95 (80-100) fL MCH 32 (26-34) pg MCHC 33 (32-36) gm/dL RDW Coeff of Cleo 12.7 (11.5-15.5) % Plt Count 316 (140-440) K/uL Neut % (Auto) 69.1 (42.0-72.0) % Lymph % (Auto) 18.3 L (20-44) % Yell % (Auto) 7.8 (0.0-11.0) % Eos % (Auto) 4.2 (0.0-7.0) % Baso % (Auto) 0.3 (0.0-3.0) % Neut # (Auto) 5.49 (1.7-7.0) K/uL Lymph # (Auto) 1.50 (0.90-2.90) K/uL Yell # (Auto) 0.60 (0.00-0.90) K/UL Eos # (Auto) 0.33 (0.00-0.50) K/uL Baso # (Auto) 0.02 (0.00-0.30) K/uL Sodium 133 L (135-149) mmol/L Potassium 4.4 (3.6-5.1) mmol/L Chloride 101 (96-114) mmol/L Carbon Dioxide 30 (20-32) mmol/L BUN 20 (7-30) mg/dL Creatinine 0.6 (0.5-1.5) mg/dL Estimated Creat Clear 33.29 Estimated GFR 90 ml/min Glucose 179 H (60-115) mg/dL Calcium 9.1 (8.4-10.6) mg/dL Troponin I < 0.01 L (0.01-0.04) ng/mL Urine Color Yellow (Yellow) Urine Appearance Clear (Clear) Urine pH 7.0 (5.0-8.5) Ur Specific [place] 1.015 (1.000-1.030) Urine Protein Negative (Negative) Urine Glucose (UA) Trace A (Negative) Urine Ketones Negative (Negative) Urine Blood Negative (Negative) Urine Nitrite Negative (Negative) Urine Bilirubin Negative (Negative) Urine Urobilinogen 0.2 (0.2-1.0) Ur Leukocyte Esterase Negative (Negative) Discharge Plan Discharge Clinical Impression: Fall Patient Disposition: Home w/ Parent or Adult Condition: Stable Instructions: Fall Prevention for Older Adults (ED) Additional Instructions: Outpatient follow-up with your doctor to discuss thyroid nodule with possible ultrasound to follow. Resume previous care an outpatient evaluation with Neurology. Activity Level: No Restrictions Discharge Diet: Regular Prescriptions: No Action insulin lispro 100 unit/mL insulin pen 5 - 7 unit subcut TIDWM Rx Instructions: 5 UNITS WITH BREAKFAST 7 UNITS WITH LUNCH 6 UNITS WITH DINNER AND SLIDING SCALE CORRECTION insulin glargine [Lantus Solostar U-100 Insulin] 100 unit/mL (3 mL) insulin pen 11 unit subcut HS gabapentin 100 mg capsule 200 mg PO HS losartan 50 mg tablet 50 mg PO DAILY atorvastatin 20 mg tablet 20 mg PO HS multivitamin [Daily Multi-Vitamin] Tablet 1 tab PO DAILY biotin 5 mg capsule 5 mg PO DAILY acetaminophen 500 mg capsule 500 - 1,000 mg PO Q6H MDD 4000mg per day PRN (Reason: pain) Qty: 100 0RF aspirin [Aspirin Childrens] 81 mg tablet,chewable 81 mg PO BID 30 Days Qty: 60 0RF Follow Up/Referrals: Erik Ashton MD [Primary Care Provider] - Stand Alone Forms: MyHealth Info Instructions
[2022-08-02 14:01] LABS: Basophils Absolute Auto 0.02 K/uL (0.00-0.30); Basophils Percent Auto 0.3 % (0.0-3.0); Eosinophils Absolute Auto 0.33 K/uL (0.00-0.50); Eosinophils Percent Auto 4.2 % (0.0-7.0); Hematocrit 35.6 % (33.0-51.0); Hemoglobin* 11.8 gm/dL (12.0-16.0); Immature Granulocytes Abs Auto 0.02 K/uL (0.00-0.30); Immature Granulocytes Pct Auto 0.3 %; Lymphocytes Percent Auto 18.3 % (20-44); Mean Corpuscular HGB Conc 33 gm/dL (32-36); Mean Corpuscular Hemoglobin 32 pg (26-34); Mean Corpuscular Volume 95 fL (80-100); Monocytes Percent Auto 7.8 % (0.0-11.0); Neutrophils Absolute Auto 5.49 K/uL (1.7-7.0); Neutrophils Percent Auto 69.1 % (42.0-72.0); Platelet Count* 316 K/uL (140-440); RDW Coefficient of Variation % 12.7 % (11.5-15.5); Red Blood Count 3.74 m/uL (4.00-5.20); White Blood Count* 7.93 K/uL (4.50-11.00)
[2022-08-02 14:04] LABS: Slide Review Reflex No
[2022-08-02 14:14] LABS: Chloride* 101 mmol/L (96-114); Potassium* 4.4 mmol/L (3.6-5.1); Sodium* 133 mmol/L (135-149)
[2022-08-02 14:17] LABS: Blood Urea Nitrogen* 20 mg/dL (7-30); Carbon Dioxide* 30 mmol/L (20-32); Creatinine* 0.6 mg/dL (0.5-1.5); Est. Creatinine Clearance* 33.29; Estimated Glomerular Filt Rate 90 ml/min; Glucose* 179 mg/dL (60-115)
[2022-08-02 14:18] LABS: Calcium* 9.1 mg/dL (8.4-10.6)
[2022-08-02 14:28] LABS: Troponin I* < 0.01 ng/mL (0.01-0.04)
[2022-08-02 16:00] LABS: Appearance Urine Clear (Clear); Bilirubin Urine Negative (Negative); Blood Urine Negative (Negative); Color Urine Yellow (Yellow); Glucose Urine Trace (Negative); Ketones Urine Negative (Negative); Leukocyte Esterase Urine Negative (Negative); Nitrite Urine Negative (Negative); Protein Urine Negative (Negative); Specific Gravity Urine 1.015 (1.000-1.030); Urobilinogen Urine 0.2 (0.2-1.0)
--- NOTE | 2022-08-02 16:08 | ED.NURSE ---
walked to br. did well.
== END 2022-08-02 16:27 | disposition home or self-care (01) ==
PROVIDERS: Emergency Provider Internal Medicine; PCP Family Medicine
DX: S00.31XA Abrasion of nose, initial encounter (principal); W19.XXXA Unspecified fall, initial encounter
CPT/HCPCS: 36415; 70450; 72125; 80048; 81003; 84484; 85025; 93005; 99283; 99284

== ENCOUNTER 2022-10-02 14:45 | Outpatient (RCR) | payer MEDICARE, SELFPAY ==
--- NOTE | 2022-06-26 17:25 | PT.OPEX ---
PT [place] Outpatient Eval PT [facility] Outpatient Eval Start: 06/26/22 16:30 Freq: Status: Active Protocol: Document 06/26/22 16:31 STEVE (Rec: 06/26/22 17:23 STEVE [id number]) E-signed By Rosmery Akins PT Physical Therapy Outpatient Evaluation Insurance Information Insurance Name Medicare B,[employer] [facility] Insurance Information/Comments [facility] / [facility] Medical Diagnosis S/P RIGHT TKA Treating Diagnosis RIGHT KNEE STIFFNESS RIGTT KNEE WEAKNESS GAIT ABNORMALITY UNSTEADINESS ON FEET Referring MD DR. COLVIN Subjective Subjective I THINK HER KNEE IS CROOKED. I'M NOT THE EXPERT BUT I'M JUST PUTTING THAT OUT THERE. STATES THE SON WHO HAS BROUGHT HIS MOTHER TODAY. PATIENT STATES,I'M GUESS I JUST NEED TO GET A BET MORE GUIDANCE. 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 Preferred Name SANTOS Precautions Therapy Limitations/Systems Review Cognition Objective Other/Pertinent Objective GAIT/FUNCTIONAL MOBILITY Single leg stance: LEFT: 3 SEC / RIGHT: UNABLE Squat: QUARTER SQUAT WITH LIMITED LLE DOMINANT THROUGHOUT MOTION KNEE AROM-PROM SUPINE Flexion: 100-110 Extension: 20-12 HIP ROM : WFL'S LLE MMT: Hip flexion: 4/5 Hip abduction: 4-/5 Hip extension: 4/5 Knee flexion: 4-/5 Knee extension: 3/5 (LIMITED KNEE EXT) TX: HEEL SLIDES X 10 TKE X 10 SLR X 10 SEATED HR/TR X 10 KNEE EXT X 10 MARCHING X 10 SIT TO STAND X 10 Functional Test Performed & Score TU.8 TINETTI: 04/25 30 SEC STS: 6 Assessment Assessment/Impression PATIENT IS AN [address] CHRISTIANO COLVIN REFERRED TO PHYSICAL THERAPY S/P RIGHT TKA 04/17/22. PMHX INCLUDES BUT NOT LIMITED TO DEMENTIA OF ALZHEIMERS LATE ONSET, DMI, NEUROPATHY, HLD, OA RIGHT KNEE, H/O CA. PATIENT LIVES WITH HER SPOUSE AT [facility] WITH HER SON OR DTR IN LAW TRANSPORTING HER TO ALL HER APPTS. SHE HAD A F/U ON 06/06/[address] COLVIN ORDERING CONTINUED PHYSICAL THERAPY AND TO TRANSITION FROM [facility] THERAPIST TO HERE. HER SON IS CONCERNED THAT SHE IS NOT FAR SHE NEEDS TO BE DESPITE THE ORTHO REPORTING GOOD PROGRESS. TODAY, SHE IS PLEASANTLY CONFUSED WITH WHAT SHE HAS BEEN DOING ALONG THE LINES OF HER HEP BUT IS ABLE TO RECALL THEM WITH MOD PROMPTING. HER KNEE LACKS 20 DEGREES EXT WHICH HAS PROGRESSIVELY WORSENED SINCE HER INITAL POST OP F/O WHERE SHE HLACKED ONLY 5 AND HER LAST FOLLOW UP WHERE SHE LACKED 15 IN [place]. PATIENT HAS GROOD KNEE FLEX MEASURING 110-115 TODAY AND FAIR STRENGTH MEASURING 3/5 FOR KNEE EX AND 4/5 FOR KNEE FLEX AND HIP MUSCULATURE. SHE AMB W /O AN ASSISTIVE DEVICE BUT NOTABLE FWD TRUNK POSTURING, POOR FOOT CLEARANCE WITH SEVERAL INSTANCES OF STUMBLING . I RECOMENDED TO AT LEAST USE A SPC FOR UPRIGHT POSTURING WELL IMPROVED FOOT CLEARANCE TO BEGIN. PATIENT HAS A DIFFICULT TIME EXPRESSING HOW SHE IS FEELING AND STRUGGLES WITH LISTING ANY OF THE EXERCISES THAT SHE HAS PERFORMED SOMEWHAT CONSISTENTLY WITH AND W/O THE ASSISTANCE OF A THERAPIST AT [facility]. LASTLY, SHE DEMONSTRATES A SIGNIFICANT RISK FOR FALLS EVIDENCED BY A SCORE OF 12/ 28 ON THE TINETTI, 6 STS IN 30 SEC, AND 16.8 ON THE TUG. TODAY, SHE REQUIRES SEVERAL DEMONSTRATIONS AND CONSISTENT CUEING TO PERFORM THE EXERCISES PROVIDED PREOPERATIVELY WITH POOR BODY AWARENESS. SHE WOULD BENEFIT FROM SKILLED PHYSICAL THERAPY TO ADDRESS HER DECREASED ROM WITH AN EMPHASIS ON KNEE EXT, RLE STRENGTHENING, GT, FUNCTIONAL BALANCE TRAINING AND MOBILITY. TODAY, WE DISCUSSED THE FOCUS ON KNEE EXT PROVIDING HER HEP EXERCISES ONCE MORE WITH THE LAST EXERCISE BEING PASSIVE KNEE EXT PROPPED ON CHAIR. I DISCUSSED EA OF THE EXERCISES AND FOCUS AT THIS POINT WITH HER SON WITH BOTH VERBALIZING UNDERSTANDING AND IN AGREEMENT WITH POC AND FREQ. Primary Functional Limitations DIFFICULTY AMB WITH ABNORMAL GAIT DIFFICULTY WITH TRANSFERS POOR STRENGTH POOR ROM POOR BALANCE INCREASED RISK FOR FALLS. Plan of Care Rehabilitation Potential Fair Rehabilitation Potential Comments PATIENT WILL NEED ADDITIONAL TIME AND CUEING IN LIGHT OF HER COGNITIVE IMPAIRMENT Physical Therapy Goals ST. PATIENT WILL IMPROVE FROM 20 DEGREE EXT TO 5 DEGREES EXT IN ORDER TO NORMALIZE GAIT IN 4 WEEKS 2. PATIENT WILL INCREASE 1/2 GRADE OF STRENGTH WITH KNEE EXT AND KNEE FLEX IN 4 WEEKS 3. PATIENT WILL IMPROVED FROM 04/25 TO 18 IN 4 WEEKS LT. PATIENT WILL BE INDEPENDENT WITH HER HEP IN 8 WEEKS 2. PATIENT WILL DEMONSTATE ROM FROM 0 TO 120 OF HER RIGHT KNEE IN 8 WEEKS 3. PATIENT WILL AMB SAFELY AND CONSISTENTLY COMMUNITY DISTANCES WITH FAMILY TO PARTICIPATE IN FAMILY CENTERED ACTIVITIES. Coordination/Communication With Referral Source,Patient Caregiver Treatment Plan/Direct Interventions Gait Training,Joint Mobilization,Manual Therapy, Neuromuscular Re-ed, Therapeutic Activities, Therapeutic Exercises Frequency/Duration 2W8 Patient Will Be Discharged From Therapy Completion of LTG(s), Independent w/HEP Discharge Plan Comments DISCHARGE TO CARE OF SELF AND FAMILY WHEN GOALS MET OR MAX POTENTIAL ACHIEVED Evaluation Billing Untimed Code Treatment Minutes 20 PT Eval No Charge No Complexity Low Certification Information Initial Certification Date 06/26/22 Ending Certification Date 09/18/22 Provider Signature Shows Agreement With POC & Medical Necessity Physician Signature & Date Requested Please Sign/Date Here Physician Comment/Change : Physician NPI Number #
[2022-07-26 18:28] LABS: Appearance Urine Clear (Clear); Bilirubin Urine Negative (Negative); Blood Urine Negative (Negative); Color Urine Yellow (Yellow); Glucose Urine 1+ (Negative); Ketones Urine Trace (Negative); Leukocyte Esterase Urine Negative (Negative); Nitrite Urine Negative (Negative); Protein Urine Trace (Negative); Specific Gravity Urine 1.015 (1.000-1.030); pH Urine 6.5 (5.0-8.5)
[2022-07-26 18:36] LABS: Hyaline Casts Urine Few (None-Few); Mucus Urine Few; RBC Urine 0-2 (0-2); Squamous Epithelial Cell Urine Few (None-Few); WBC Urine 0-2 (0-5)
[2022-07-31 11:34] LABS: Basophils Absolute Auto 0.03 K/uL (0.00-0.30); Basophils Percent Auto 0.5 % (0.0-3.0); Eosinophils Absolute Auto 0.25 K/uL (0.00-0.50); Eosinophils Percent Auto 4.2 % (0.0-7.0); Hematocrit 38.1 % (33.0-51.0); Hemoglobin* 12.6 gm/dL (12.0-16.0); Immature Granulocytes Abs Auto 0.02 K/uL (0.00-0.30); Immature Granulocytes Pct Auto 0.3 %; Lymphocytes Percent Auto 19.6 % (20-44); Mean Corpuscular HGB Conc 33 gm/dL (32-36); Mean Corpuscular Hemoglobin 32 pg (26-34); Mean Corpuscular Volume 96 fL (80-100); Monocytes Percent Auto 9.4 % (0.0-11.0); Neutrophils Absolute Auto 3.94 K/uL (1.7-7.0); Platelet Count* 330 K/uL (140-440); RDW Coefficient of Variation % 12.9 % (11.5-15.5); Red Blood Count 3.98 m/uL (4.00-5.20); White Blood Count* 5.97 K/uL (4.50-11.00)
[2022-07-31 11:40] LABS: Slide Review Reflex No
[2022-07-31 11:50] LABS: Chloride* 101 mmol/L (96-114); Potassium* 4.6 mmol/L (3.6-5.1); Sodium* 134 mmol/L (135-149)
[2022-07-31 11:53] LABS: Blood Urea Nitrogen* 24 mg/dL (7-30); Carbon Dioxide* 28 mmol/L (20-32); Creatinine* 0.5 mg/dL (0.5-1.5); Estimated Glomerular Filt Rate 94 ml/min
[2022-07-31 11:54] LABS: Calcium* 9.1 mg/dL (8.4-10.6); Glucose* 296 mg/dL (60-115)
[2022-07-31 12:43] LABS: Vitamin B12* 676 pg/mL (243-894)
--- NOTE | 2022-10-03 15:32 | PT.OPDNX ---
PT [place] Outpatient DISCHARGE SUMMARY PT [facility] Outpatient Daily Note Start: 06/26/22 16:30 Freq: Status: Active Protocol: Document 10/02/22 15:24 STEVE (Rec: 10/02/22 16:56 STEVE [id number]) E-signed By Rosmery Akins, PT PT OP Daily Progress Note Visit Information Note Type Discharge Note Visit Number 23 Insurance Information Insurance Name Medicare B,[employer] Insurance Information/Comments [facility] Medical Diagnosis S/P RIGHT TKA 04/17/22 Treating Diagnosis RIGHT KNEE STIFFNESS RIGHT KNEE WEAKNESS GAIT ABNORMALITY UNSTEADINESS ON FEET Referring MD DR. COLVIN Subjective Subjective PATIENT REPORTS THAT,I'VE BEEN DOING WHAT YOU SAID I SHOULD DO. IT'S GOOD. HER SON FURTHER CLARIFIES, SHE DOES HER EXERCISES EVERYDAY RELIGIOUSLY. Pain Comments 0/10 RIGHT KNEE Preferred Name [employer] Precautions Treatment Precautions/Contraindications PATIENT SCORED MOD TO SEVERE IMPAIRMENT ON HER MoCA COG TEST. DO NOT PROGRESS SHE STILL DOES NOT UNDERSTAND HER HEP. D/T HER COGNITIVE IMPAIRMENT, WE NEED TO REMAIN THE SAME OUR FOCUS IS NORMAL ROM WITH EMPHASIS ON KNEE EXT. Objective Other/Pertinent Objective GAIT/FUNCTIONAL MOBILITY REASSESSMENT 07/24/22 Single leg stance: RIGHT 8 SEC Squat: QUARTER SQUAT WITH LIMITED LLE DOMINANT THROUGHOUT MOTION KNEE AROM-PROM SUPINE Flexion: 118-120 Extension: 12-8 LLE MMT: Hip flexion: 4/5 Hip abduction: 4/5 Hip extension: 4+/5 Knee flexion: 4/5 Knee extension: 4-/5 (LIMITED KNEE EXT) Functional Test Performed & Score TU.1; 09/05/22 11.4SEC; 10/02/22 9.2SEC TINETTI: 09/05/22 30 SEC STS: 6; 09/05/22->10 ; 12 MoCA 02/25 Patient Instructed in Risks/Benefits Yes Therapeutic Exercise Therapeutic Exercise Minutes (minutes) 15 Therapeutic Exercise: To Restore RECUMBENT BIKE 5 MIN Functional Status LEG PRESS BILATERALLY X 15 70# LEG PRESS RIGHT ONLY X 10 50# KNEE EXT BILATERALLY X 15 2P KNEE EXT RIGHT ONLY X 10 1P STOOL SCOOTS X 4 (40FT) GT OVER UNEVEN STONE PADS X 6 Manual Therapy Techniques Manual Therapy Minutes (minutes) 10 Manual Therapy Techniques PROM KNEE FLEX USING CONTRACT RELAX TECHNIQUE PROM KNEE EXT WITH OVER PRESSURE 3 X 1MIN Gait & Stair Training Gait Training/Stairs Minutes (minutes) 15 Gait & Stair Training Comments GT ON A VARIETY OF SURFACES OUTSIDE THE CLINIC WITH SUPERVISION/SBA Treatment Minutes Timed Code Treatment Minutes 40 Total Treatment Time 40 Billing Units Gait Training/Stairs Units 1 Therapeutic Exercise Units 2 Plan of Care Physical Therapy Goals ST. PATIENT WILL IMPROVE FROM 20 DEGREE EXT TO 5 DEGREES EXT IN ORDER TO NORMALIZE GAIT IN 4 WEEKS; GOAL NOT MET 2. PATIENT WILL INCREASE 1/2 GRADE OF STRENGTH WITH KNEE EXT AND KNEE FLEX IN 4 WEEKS; GOAL MET 3. PATIENT WILL IMPROVED FROM 04/25 TO IN 4 WEEKS; GOAL MET LT. PATIENT WILL BE SUPERVISION WITH HER HEP IN 8 WEEKS; GOAL MET 2. PATIENT WILL DEMONSTRATE ROM FROM 0 TO 120 OF HER RIGHT KNEE IN 8 WEEKS; GOAL NOT MET 3. PATIENT WILL AMB SAFELY AND CONSISTENTLY COMMUNITY DISTANCES WITH FAMILY TO PARTICIPATE IN FAMILY CENTERED ACTIVITIES. 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 PMHX INCLUDES BUT NOT LIMITED TO ALZHEIMER'S DEMENTIA LATE ONSET, DIABETES TYPE 1, H/O CA, NEUROPATHY, HLD, OA, AND H/O FALLS. SHE HAS PARTICIPATED IN A COMPREHENSIVE AND INDIVIDUALIZED PROGRAM TO ADDRESS HER STRENGTH, BALANCE, GAIT, AND HEAVY EMPHASIS ON ROM SHE WAS LACKING 20 DEGREES OF KNEE EXT. WE HAVE AGGRESSIVELY WORKED ROM MEASURING AROM 118-12 AND PROM 120-6 DEGREES FROM 100-20 AROM AND 110-12 DEGREES ON THE INITIAL EVALUATION. SHE IS CONSISTENT WITH HER HEP DAILY THAT SHE NEEDS MODERATE ASSISTANCE PROVIDED BY HER SPOUSE AND FAMILY D/T HER COGNITIVE CHALLENGES. SHE NOW CAN AMB COMMUNITY DISTANCES WITH MUCH IMPROVED GAIT MECHANICS AND GREATLY REDUCED RISK FOR FALLS EVIDENCED BY AN IMPROVEMENT FROM 16.8 SEC TO 9.2 SEC ON THE TUG, FROM 6 SIT TO STANDS IN 30 SEC TO 12, AND FROM 04/25 TO . SHE HAS MET MOST OF HER GOALS AT THIS TIME AND HAS REACHED MAX REHABILITATION POTENTIAL AND THEREFOR DISCHARGE FROM SKILLED PHYSICAL THERAPY. BOTH HER FAMILY AND PATIENT VERBALIZED UNDERSTANDING OF THE IMPORTANCE OF CONTINUING WITH HER HEP AND ARE IN AGREEMENT WITH PHYSICAL THERAPY. PATIENT WILL F/U WITH PHYSICIAN 10/16/22. Date of First Visit for Therapy 06/26/22 Date of Last Visit for Therapy 10/02/22 Interventions Provided During Treatment Gait Training,Joint Mobilization,Manual Therapy, Neuromuscular Re-Ed, Therapeutic Activities, Therapeutic Exercise Recommendations/Reason for Discharge Progress Reached Plateau Discharge Instructions CONTINUE WITH YOUR HOME PROGRAM
== END 2022-10-11 10:20 | disposition home or self-care (01) ==
PROVIDERS: PCP Family Medicine; Visit Provider Orthopaedic Surgery
DX: Z96.659 Presence of unspecified artificial knee joint (principal); Z51.89 Encounter for other specified aftercare
CPT/HCPCS: 36415; 80048; 81003; 81015; 82607; 84443; 85025; 87086; 97110; 97116; 97140; 97161

== ENCOUNTER 2022-12-27 20:51 | Outpatient (CLI) | payer MEDICARE, SELFPAY | END 2022-12-27 20:52 | disposition home or self-care (01) | LOC: AMB 12-31 09:49 | PROVIDERS: PCP Family Medicine; Visit Provider Family Medicine | DX: S49.91XA Unspecified injury of right shoulder and upper arm, initial encounter (principal); W10.8XXA Fall (on) (from) other stairs and steps, initial encounter; Y92.008 Other place in unspecified non-institutional (private) residence as the place of occurrence of the external cause | CPT/HCPCS: A0425; A0429 ==

== ENCOUNTER 2022-12-27 21:13 | Emergency (ER) | payer MEDICARE, SELFPAY ==
[2022-12-27 21:17] VITALS: BP 180/106; PULSE 79; RESP 18; TEMP 36.8; O2SAT 97; BMI 20.8
--- NOTE | 2022-12-27 21:31 | ED.FALL ---
HPI - Fall General Time Seen by Provider: 21:31 <Marycarmen Hagen MD - Last Filed: 12/30/22 08:19> Date Seen: 12/27/22 <Marycarmen Hagen MD - Last Filed: 12/30/22 08:19> Chief Complaint: Fall/Minor Trauma <Marycarmen Hagen MD - Last Filed: 12/30/22 08:19> Stated Complaint: R Shoulder Pain <Marycarmen Hagen MD - Last Filed: 12/30/22 08:19> Time Seen by Provider: 12/27/22 21:30 <Marycarmen Hagen MD - Last Filed: 12/30/22 08:19> Source: patient, family, EMS and RN notes reviewed <Marycarmen Hagen MD - Last Filed: 12/30/22 08:19> Mode of arrival: EMS <Marycarmen Hagen MD - Last Filed: 12/30/22 08:19> Limitations: no limitations <Marycarmen Hagen MD - Last Filed: 12/30/22 08:19> History of Present Illness HPI Narrative: Destiney is an 82-year-old female with type 1 diabetes and Alzheimer's dementia that had reportedly a witnessed fall tonight. She was coming down steps, fell the last 2 steps, fell onto her right shoulder area. No loss of consciousness. She denies any head, neck or back pain. She was brought by ambulance from [facility] where she resides with her . This probably happened around 7:00 p.m. this evening or so. She is only complaining of right shoulder pain at this time. <Marycarmen Hagen MD - Last Filed: 12/30/22 08:19> MD complaint: fall <Marycarmen Hagen MD - Last Filed: 12/30/22 08:19> Fall witnessed: yes, by living facility staff <Marycarmen Hagen MD - Last Filed: 12/30/22 08:19> Related Data Home Medications: Home Medications Medication Instructions Recorded Confirmed insulin lispro 100 unit/mL 5 - 7 unit subcut TIDWM 10/17/22 06/28/23 subcutaneous pen gabapentin 100 mg capsule 200 mg PO HS 02/14/22 10/24/22 insulin glargine 100 unit/mL (3 11 unit subcut HS 02/14/22 10/24/22 mL) subcutaneous pen (Lantus Solostar U-100 Insulin) losartan 50 mg tablet 50 mg PO DAILY 02/14/22 10/24/22 atorvastatin 20 mg tablet 20 mg PO HS 04/11/22 10/24/22 multivitamin (Daily Multi-Vitamin 1 tab PO DAILY 04/11/22 10/24/22 tablet) biotin 5 mg capsule 5 mg PO DAILY 04/16/22 10/24/22 acetaminophen 500 mg capsule 500 - 1,000 mg PO Q6H PRN pain 10/24/22 10/24/22 Previous Rx's Medication Instructions Recorded aspirin 81 mg chewable tablet 81 mg PO BID for DVT prophylaxis 04/19/22 (Aspirin Childrens) 30 days #60 tabs <Marycarmen Hagen MD - Last Filed: 12/30/22 08:19> Allergies/Adverse Reactions: Allergies Allergy/AdvReac Type Severity Reaction Status Date / Time No Known Drug Allergies Allergy Verified 12/27/22 21:23 <Marycarmen Hagen MD - Last Filed: 12/30/22 08:19> Review of Systems Status of ROS: Reports: 6 or more systems reviewed and unremarkable except as noted in History and below <Marycarmen Hagen MD - Last Filed: 12/30/22 08:19> [facility] Medical History: Medical History Hyperlipidemia ?E78.5 - Hyperlipidemia, unspecified (ICD-10) Type 1 diabetes mellitus ?E10.9 - Type 1 diabetes mellitus without complications (ICD-10) Neuropathy ?G62.9 - Polyneuropathy, unspecified (ICD-10) Hypertension ?I10 - Essential (primary) hypertension (ICD-10) History of intestinal obstruction ?Z87.19 - Personal history of other diseases of the digestive system (ICD-10) <Marycarmen Hagen MD - Last Filed: 12/30/22 08:19> Surgical History: Surgical History 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) ?Z96.651 - Presence of right artificial knee joint (ICD-10) History of lumpectomy of right breast ?Z98.890 - Other specified postprocedural states (ICD-10) History of appendectomy ?Z90.49 - Acquired absence of other specified parts of digestive tract (ICD-10) H/O arthroscopic knee surgery ?Z98.890 - Other specified postprocedural states (ICD-10) H/O section ?Z98.891 - History of uterine scar from previous surgery (ICD-10) <Marycarmen Hagen MD - Last Filed: 12/30/22 08:19> Social History: Social History Smoking Status: Never smoker Do you use any of these nicotine containing products: None Second hand tobacco smoke exposure: No How often do you have a drink containing alcohol: never How often do you have six or more drinks on one occasion: Never AUDIT-C Alcohol total score: 0 Non-prescribed substance use: denies use Caffeine: Yes (coffee 4 cups/day 2 mini cans diet coke/week) Are you using contraception or practicing any form of control: No service: No <Marycarmen Hagen MD - Last Filed: 12/30/22 08:19> Exam Const: Vital Signs, click to edit/add: Vital Signs - 24 hr 12/27/22 21:17 12/27/22 22:34 12/28/22 01:52 Temperature 98.3 F Pulse Rate [Right Pulse Oximeter] 79 78 81 Respiratory Rate 18 16 Blood Pressure [Ri ght Upper Arm] 180/106 H 190/84 H 172/81 H Pulse Oximetry 97 95 97 Oxygen Delivery Me thod Room Air Room Air Room Air 82-year-old female is alert interactive no apparent distress holding her right arm by her side with the elbow at 90? flexion. The right upper arm/shoulder area looks like it is bruising and is swollen. She complains of pain over that humeral head area. Clavicle seems to be nontender. Scalp and face are atraumatic. Pupils equal round, sclera clear, conjugate gaze. Face atraumatic. Nose normal, no drainage from ears or nares. Oropharynx normal. Able to speak in complete sentences. No midline tenderness over the cervical spine or down into her back. No visible traumatic areas on her back. Lungs are clear with good air entry, no wheezing or crackles. CV regular rate and rhythm, harsh sounding systolic murmur heard upper sternal borders best. No anterior chest wall tenderness. Abdomen is soft, nontender. Left extremity seems to be without any limits or painful areas, no open wounds. Lower extremities fully mobile, no visible wounds. <Marycarmen Hagen MD - Last Filed: 12/30/22 08:19> Vital Signs, click to edit/add: Vital Signs - 24 hr 12/27/22 21:17 12/27/22 22:34 12/28/22 01:52 Temperature 98.3 F Pulse Rate [Right Pulse Oximeter] 79 78 81 Respiratory Rate 18 16 Blood Pressure [Ri ght Upper Arm] 180/106 H 190/84 H 172/81 H Pulse Oximetry 97 95 97 Oxygen Delivery Me thod Room Air Room Air Room Air <Gus Joshi MD - Last Filed: 12/28/22 03:18> Documenting provider has reviewed patient's vital signs: yes <Marycarmen Hagen MD - Last Filed: 12/30/22 08:19> Course Course Hospital Course: Reviewed with patient that I would like her to get an ice pack on this upper humerus/shoulder area. I suspect there might be an underlying fracture. Will get imaging of chest, right shoulder and humerus for further delineation of underlying trauma. <Marycarmen Hagen MD - Last Filed: 12/30/22 08:19> Reevaluation(s) Time of Reevaluation #1: 22:27 <Marycarmen Hagen MD - Last Filed: 12/30/22 08:19> Reevaluation #1: Reviewed with patient and her son that on my preliminary review there is a humeral head fracture. This is a patient that resides in independent living at [facility], there is no way to increase services overnight. Patient is starting to talk nonsensically with her dementia but is hemodynamically stable. This does not seem to be a safe situation for her to return to independent living tonight. We unfortunately have no bed availability here. We will place her in a sling, she has not taken any Tylenol yet tonight, will give her a dose of this, get an ice pack on the upper arm. We are going to see if there is any possible placement around here. <Marycarmen Hagen MD - Last Filed: 12/30/22 08:19> Time of Reevaluation #2: 23:55 <Marycarmen Hagen MD - Last Filed: 12/30/22 08:19> Reevaluation #2: Nursing staff had assisted patient to the bathroom, states it took 2 to do this and absolutely feel she is not safe to return to her current living situation at this time. She did complain of some left knee pain which is new after the fall. Will obtain x-ray of this left knee. <Marycarmen Hagen MD - Last Filed: 12/30/22 08:19> Reevaluation #3: X-ray confirms a nondisplaced patellar fracture on the left. Patient is ambulatory without too much difficulty. We opted against a knee immobilizer in the ED but she will likely need one eventually. Patient is accepted for transfer to [facility]. CBC, basic metabolic panel, hemoglobin A1c are drawn. His hemoglobin of 11.0. Sodium 129. Hemoglobin A1c is 9.25% corresponding to an average blood sugar of 220. Patient is given Tylenol 1000 mg orally for pain. Patient is transferred by ground ambulance in stable condition. I appreciate [facility]'s willingness to accept this patient. <Gus Joshi MD - Last Filed: 12/28/22 03:18> Vital Signs Vital signs: Initial Vital Signs Temperature 98.3 F 12/27/22 21:17 Temperature Source Temporal Artery Scan 12/27/22 21:17 Pulse Rate 79 12/27/22 21:17 Pulse Rhythm Regular 12/27/22 21:17 Pulse Strength 3+ Normal 12/27/22 21:17 Respiratory Rate 18 12/27/22 21:17 Blood Pressure 180/106 H 12/27/22 21:17 Blood Pressure Mean 130 H 12/27/22 21:17 Blood Pressure Position Sitting 12/27/22 21:17 Pulse Oximetry 97 12/27/22 21:17 Oxygen Delivery Method Room Air 12/27/22 21:17 Vital Signs Temperature 98.3 F 12/27/22 21:17 Pulse Rate 79 12/27/22 21:17 Respiratory Rate 18 12/27/22 21:17 Blood Pressure 180/106 H 12/27/22 21:17 Pulse Oximetry 97 12/27/22 21:17 Oxygen Delivery Method Room Air 12/27/22 21:17 Temperature 98.3 F 12/27/22 21:17 Pulse Rate 81 12/28/22 01:52 Respiratory Rate 16 12/28/22 01:52 Blood Pressure 172/81 H 12/28/22 01:52 Pulse Oximetry 97 12/28/22 01:52 Oxygen Delivery Method Room Air 12/28/22 01:52 <Marycarmen Hagen MD - Last Filed: 12/30/22 08:19> Initial Vital Signs Temperature 98.3 F 12/27/22 21:17 Temperature Source Temporal Artery Scan 12/27/22 21:17 Pulse Rate 79 12/27/22 21:17 Pulse Rhythm Regular 12/27/22 21:17 Pulse Strength 3+ Normal 12/27/22 21:17 Respiratory Rate 18 12/27/22 21:17 Blood Pressure 180/106 H 12/27/22 21:17 Blood Pressure Mean 130 H 12/27/22 21:17 Blood Pressure Position Sitting 12/27/22 21:17 Pulse Oximetry 97 12/27/22 21:17 Oxygen Delivery Method Room Air 12/27/22 21:17 Vital Signs Temperature 98.3 F 12/27/22 21:17 Pulse Rate 79 12/27/22 21:17 Respiratory Rate 18 12/27/22 21:17 Blood Pressure 180/106 H 12/27/22 21:17 Pulse Oximetry 97 12/27/22 21:17 Oxygen Delivery Method Room Air 12/27/22 21:17 Temperature 98.3 F 12/27/22 21:17 Pulse Rate 81 12/28/22 01:52 Respiratory Rate 16 12/28/22 01:52 Blood Pressure 172/81 H 12/28/22 01:52 Pulse Oximetry 97 09/01/23 01:52 Oxygen Delivery Method Room Air 12/28/22 01:52 <Gus Joshi MD - Last Filed: 12/28/22 03:18> MDM - Fall Lab Data Labs: Lab Results 12/28/22 Range/Units 02:30 WBC 11.69 H (4.50-11.00) K/uL RBC 3.54 L (4.00-5.20) m/uL Hgb 11.0 L (12.0-16.0) gm/dL Hct 32.8 L (33.0-51.0) % MCV 93 (80-100) fL MCH 31 (26-34) pg MCHC 34 (32-36) gm/dL RDW Coeff of Cleo 13.0 (11.5-15.5) % Plt Count 272 (140-440) K/uL Neut % (Auto) 78.8 H (42.0-72.0) % Lymph % (Auto) 11.7 L (20-44) % [place] % (Auto) 7.4 (0.0-11.0) % Eos % (Auto) 1.3 (0.0-7.0) % Baso % (Auto) 0.3 (0.0-3.0) % Neut # (Auto) 9.20 H (1.7-7.0) K/uL Lymph # (Auto) 1.40 (0.90-2.90) K/uL [place] # (Auto) 0.90 (0.00-0.90) K/UL Eos # (Auto) 0.20 (0.00-0.50) K/uL Baso # (Auto) 0.00 (0.00-0.30) K/uL Abs Immat Gran (auto) 0.10 (0.00-0.30) K/uL Imm/Tot Granulo (auto) 0.5 % Sodium 129 L (135-149) mmol/L Potassium 4.1 (3.6-5.1) mmol/L Chloride 93 L (96-114) mmol/L Carbon Dioxide 30 (20-32) mmol/L Anion Gap 6 L (7-15) mEq/L BUN 15 (7-30) mg/dL Creatinine 0.5 (0.5-1.5) mg/dL Estimated Creat Clear 33.29 Estimated GFR 94 ml/min Glucose 165 H (60-115) mg/dL Hemoglobin A1c 9.25 H (0-5.6) % Calcium 9.1 (8.4-10.6) mg/dL <Marycarmen Hagen MD - Last Filed: 12/30/22 08:19> Lab Results 12/28/22 Range/Units 02:30 WBC 11.69 H (4.50-11.00) K/uL RBC 3.54 L (4.00-5.20) m/uL Hgb 11.0 L (12.0-16.0) gm/dL Hct 32.8 L (33.0-51.0) % MCV 93 (80-100) fL MCH 31 (26-34) pg MCHC 34 (32-36) gm/dL RDW Coeff of Cleo 13.0 (11.5-15.5) % Plt Count 272 (140-440) K/uL Neut % (Auto) 78.8 H (42.0-72.0) % Lymph % (Auto) 11.7 L (20-44) % [place] % (Auto) 7.4 (0.0-11.0) % Eos % (Auto) 1.3 (0.0-7.0) % Baso % (Auto) 0.3 (0.0-3.0) % Neut # (Auto) 9.20 H (1.7-7.0) K/uL Lymph # (Auto) 1.40 (0.90-2.90) K/uL [place] # (Auto) 0.90 (0.00-0.90) K/UL Eos # (Auto) 0.20 (0.00-0.50) K/uL Baso # (Auto) 0.00 (0.00-0.30) K/uL Abs Immat Gran (auto) 0.10 (0.00-0.30) K/uL Imm/Tot Granulo (auto) 0.5 % Sodium 129 L (135-149) mmol/L Potassium 4.1 (3.6-5.1) mmol/L Chloride 93 L (96-114) mmol/L Carbon Dioxide 30 (20-32) mmol/L Anion Gap 6 L (7-15) mEq/L BUN 15 (7-30) mg/dL Creatinine 0.5 (0.5-1.5) mg/dL Estimated Creat Clear 33.29 Estimated GFR 94 ml/min Glucose 165 H (60-115) mg/dL Hemoglobin A1c 9.25 H (0-5.6) % Calcium 9.1 (8.4-10.6) mg/dL <Gus Joshi MD - Last Filed: 12/28/22 03:18> Imaging Data Chest x-ray: Attestation: I have reviewed the pertinent imaging results. <Marycarmen Hagen MD - Last Filed: 12/30/22 08:19> Radiologist's impression: Patient: [facility] Facility:?[facility] Patient ID:?[id number] Site Patient ID:?[id number]. Site :?[id number] Study:?XRay Chest 1 view-12/27/2022 10:07:55 PM Ordering Physician:Henri Conroy Final Report: INDICATION: Fall, injury. TECHNIQUE: Chest 1 view(s) COMPARISON: None. FINDINGS: Cardiomediastinal silhouette and pulmonary vasculature are normal. No focal consolidation. No significant pleural effusion, no pneumothorax. Right humeral neck fracture is not well seen. Chronic appearing right lower rib fracture deformities noted. IMPRESSION: No focal consolidation. Chronic appearing right lower rib fracture deformities noted. Right humeral neck fracture is not well seen. Dictated by Amina Capps MD @ 12/27/2022 10:29:11 PM (Electronic Signature) <Marycarmen Hagen MD - Last Filed: 12/30/22 08:19> XR right humerus: Attestation: I have reviewed the pertinent imaging results. <Marycarmen Hagen MD - Last Filed: 12/30/22 08:19> My impression: Humerus fracture seen. This is proximal, wait radiology over-read. <Marycarmen Hagen MD - Last Filed: 12/30/22 08:19> Radiologist's impression: Patient: LEXA ALONZO Facility:?[facility] Patient ID:?[id number] Site Patient ID:?[id number]. Site :?[id number] Study:?XRay Extremity Right HUMERUS 2V-12/27/2022 10:07:32 PM Ordering Physician:Henri Conroy Final Report: Indication: Fall, injury. Technique: Two views of the right humerus. Comparison: None Findings/Impression: Acute displaced and impacted fracture of the right humeral neck, appears to be held in valgus angulation. No distal humeral fracture is identified. Visualized portions of the elbow joint appear unremarkable. Dictated by Amina Capps MD @ 12/27/2022 10:25:31 PM (Electronic Signature) <Marycarmen Hagen MD - Last Filed: 12/30/22 08:19> Discharge Plan Discharge Clinical Impression: Fall, Closed fracture of head of right humerus <Marycarmen Hagen MD - Last Filed: 12/30/22 08:19> Patient Disposition: Xfer Other <Marycarmen Hagen MD - Last Filed: 12/30/22 08:19> Discharge Location: [facility] <Marycarmen Hagen MD - Last Filed: 12/30/22 08:19> Condition: Stable <Marycarmen Hagen MD - Last Filed: 12/30/22 08:19> Prescriptions: No Action insulin lispro 100 unit/mL insulin pen 5 - 7 unit subcut TIDWM Rx Instructions: 5 UNITS WITH BREAKFAST 7 UNITS WITH LUNCH 6 UNITS WITH DINNER AND SLIDING SCALE CORRECTION insulin glargine [Lantus Solostar U-100 Insulin] 100 unit/mL (3 mL) insulin pen 11 unit subcut HS gabapentin 100 mg capsule 200 mg PO HS losartan 50 mg tablet 50 mg PO DAILY acetaminophen 500 mg capsule 500 - 1,000 mg PO Q6H PRN (Reason: pain) atorvastatin 20 mg tablet 20 mg PO HS multivitamin [Daily Multi-Vitamin] Tablet 1 tab PO DAILY biotin 5 mg capsule 5 mg PO DAILY aspirin [Aspirin Childrens] 81 mg tablet,chewable 81 mg PO BID 30 Days Qty: 60 0RF <Marycarmen Hagen MD - Last Filed: 12/30/22 08:19> Stand Alone Forms: MyHealth Info Instructions <Marycarmen Hagen MD - Last Filed: 12/30/22 08:19>
--- NOTE | 2022-12-27 21:35 | CRLHL7_ITS ---
For Patients: As a result of the Cures Act, medical imaging exams and procedure reports are released immediately into your electronic medical record. You may view this report before your referring provider. If you have questions, please contact your health care provider. INDICATION: Fall, injury. TECHNIQUE: Chest 1 view(s) COMPARISON: None. FINDINGS: Cardiomediastinal silhouette and pulmonary vasculature are normal. No focal consolidation. No significant pleural effusion, no pneumothorax. Right humeral neck fracture is not well seen. Chronic appearing right lower rib fracture deformities noted. IMPRESSION: No focal consolidation. Chronic appearing right lower rib fracture deformities noted. Right humeral neck fracture is not well seen. Dictated by Amina Capps MD @ 12/27/2022 10:29:11 PM (Electronically Signed)
--- NOTE | 2022-12-27 21:35 | CRLHL7_ITS ---
For Patients: As a result of the Century Cures Act, medical imaging exams and procedure reports are released immediately into your electronic medical record. You may view this report before your referring provider. If you have questions, please contact your health care provider. Indication: Fall, injury. Technique: Three views of the right shoulder. Comparison: None Findings/Impression: Acute comminuted fracture of the right humeral neck, with valgus angulation and impaction. Fracture involves the greater and lesser tuberosities of the humerus. The glenohumeral joint alignment appears to remain anatomic. Acromioclavicular joint alignment is anatomic. Dictated by Amina Capps MD @ 12/27/2022 10:32:38 PM (Electronically Signed)
--- NOTE | 2022-12-27 21:35 | CRLHL7_ITS ---
For Patients: As a result of the Century Cures Act, medical imaging exams and procedure reports are released immediately into your electronic medical record. You may view this report before your referring provider. If you have questions, please contact your health care provider. Indication: Fall, injury. Technique: Two views of the right humerus. Comparison: None Findings/Impression: Acute displaced and impacted fracture of the right humeral neck, appears to be held in valgus angulation. No distal humeral fracture is identified. Visualized portions of the elbow joint appear unremarkable. Dictated by Amina Capps MD @ 12/27/2022 10:25:31 PM (Electronically Signed)
[2022-12-27 22:34] VITALS: BP 190/84; PULSE 78; O2SAT 95
--- NOTE | 2022-12-27 23:54 | CRLHL7_ITS ---
For Patients: As a result of the Century Cures Act, medical imaging exams and procedure reports are released immediately into your electronic medical record. You may view this report before your referring provider. If you have questions, please contact your health care provider. INDICATION: Fall, pain. TECHNIQUE: Right knee 2 views. Permanently recorded images are archived. COMPARISON: None. FINDINGS: Acute, nondisplaced transverse fracture of the inferior pole of the patella. No joint effusion. Alignment is normal. Moderate medial compartment joint space loss with marginal osteophyte formation. Chondrocalcinosis involving the lateral compartment. The soft tissues are unremarkable apart from scattered vascular calcifications. IMPRESSION: Acute, nondisplaced transverse fracture of the inferior pole of the patella. Dictated by Hua Hernandez MD @ 12/28/2022 12:34:09 AM (Electronically Signed)
[2022-12-28 01:52] VITALS: BP 172/81; PULSE 81; RESP 16; O2SAT 97
[2022-12-28] MEDS: ACETAMINOPHEN 500 MG TABLET 1000 MG PO (01:52)
[2022-12-28 02:38] LABS: Basophils Percent Auto 0.3 % (0.0-3.0); Eosinophils Percent Auto 1.3 % (0.0-7.0); Hematocrit 32.8 % (33.0-51.0); Immature Granulocytes Pct Auto 0.5 %; Lymphocytes Percent Auto 11.7 % (20-44); Mean Corpuscular HGB Conc 34 gm/dL (32-36); Mean Corpuscular Hemoglobin 31 pg (26-34); Mean Corpuscular Volume 93 fL (80-100); Monocytes Percent Auto 7.4 % (0.0-11.0); Neutrophils Percent Auto 78.8 % (42.0-72.0); Platelet Count* 272 K/uL (140-440); Red Blood Count 3.54 m/uL (4.00-5.20); White Blood Count* 11.69 K/uL (4.50-11.00)
[2022-12-28 02:41] LABS: Slide Review Reflex No
[2022-12-28 02:50] LABS: Chloride* 93 mmol/L (96-114); Sodium* 129 mmol/L (135-149)
[2022-12-28 02:51] LABS: Potassium* 4.1 mmol/L (3.6-5.1)
[2022-12-28 02:53] LABS: Anion Gap 6 mEq/L (7-15); Carbon Dioxide* 30 mmol/L (20-32); Creatinine* 0.5 mg/dL (0.5-1.5); Est. Creatinine Clearance* 33.29; Estimated Glomerular Filt Rate 94 ml/min
[2022-12-28 02:54] LABS: Blood Urea Nitrogen* 15 mg/dL (7-30); Calcium* 9.1 mg/dL (8.4-10.6); Glucose* 165 mg/dL (60-115)
--- NOTE | 2022-12-28 02:57 | ED.NURSE ---
Patient up to BR with 2 assist. Patient to be admitted to [facility] pending lab results.
[2022-12-28 03:02] LABS: Hemoglobin A1C* 9.25 % (0-5.6)
--- NOTE | 2022-12-28 04:14 | ED.NURSE ---
Report to accepting [facility] RN.
== END 2022-12-28 04:18 | disposition other institution (70) ==
PROVIDERS: Family Medicine; Emergency Provider Family Medicine; PCP Family Medicine
DX: S42.291A Other displaced fracture of upper end of right humerus, initial encounter for closed fracture (principal); W10.9XXA Fall (on) (from) unspecified stairs and steps, initial encounter
CPT/HCPCS: 36415; 71045; 73030; 73060; 73560; 80048; 83036; 85025; 99284; A9270

== ENCOUNTER 2022-12-28 03:59 | Outpatient (CLI) | payer MEDICARE, SELFPAY | END 2022-12-28 04:00 | disposition home or self-care (01) | PROVIDERS: PCP Family Medicine; Visit Provider Family Medicine | DX: S42.211S Unspecified displaced fracture of surgical neck of right humerus, sequela (principal); S82.002S Unspecified fracture of left patella, sequela; G30.1 Alzheimer's disease with late onset | CPT/HCPCS: A0425; A0428 ==

== ENCOUNTER 2024-03-13 18:39 | Outpatient (CLI) | payer MEDICARE, SELFPAY | END 2024-03-13 18:40 | disposition home or self-care (01) | LOC: AMB 03-17 00:38 | PROVIDERS: PCP Family Medicine; Visit Provider Family Medicine | DX: S89.91XA Unspecified injury of right lower leg, initial encounter (principal); W18.30XA Fall on same level, unspecified, initial encounter; Y92.099 Unspecified place in other non-institutional residence as the place of occurrence of the external cause | CPT/HCPCS: A0425; A0429 ==

== ENCOUNTER 2024-03-13 18:51 | Inpatient (IN) | payer MEDICARE, SELFPAY ==
[2024-03-13 18:55] VITALS: BP 200/92; PULSE 78; RESP 18; TEMP 36.9; O2SAT 94
--- NOTE | 2024-03-13 19:08 | CRLHL7_ITS ---
For Patients: As a result of the Century Cures Act, medical imaging exams and procedure reports are released immediately into your electronic medical record. You may view this report before your referring provider. If you have questions, please contact your health care provider. INDICATION: Right hip pain, pelvic pain, injury TECHNIQUE: Pelvis radiograph, Hip radiograph 3 views right COMPARISON: None FINDINGS: Bone: Serpiginous lucencies are seen over the greater trochanter, likely due to a nondisplaced fracture. Moderate diffuse osteopenia is present. Joint: The hip joints are unremarkable. The visualized sacroiliac joints are unremarkable in appearance. The pubic symphysis is normal in appearance. Soft tissue: Unremarkable. No radiopaque foreign bodies are seen. Mild vascular calcifications are noted. IMPRESSION: 1. Serpiginous lucencies are seen over the greater trochanter, likely due to a nondisplaced fracture. Evaluation of the right femoral neck is limited on frontal view due to external rotation which causes foreshortening. Dedicated hip radiograph with internal rotation may be helpful. Dictated by Osmani Garcia MD @ 03/13/2024 7:58:59 PM Dictated by: Osmani Garcia MD @ 03/13/2024 19:59:04 (Electronically Signed)
--- NOTE | 2024-03-13 19:14 | ED_ITS ---
HPI - Fall General Date Seen: 03/13/24 Chief Complaint: Fall/Minor Trauma Stated Complaint: Leg fracture Time Seen by Provider: 03/13/24 18:52 Source: patient and family Mode of arrival: ambulatory Limitations: no limitations History of Present Illness HPI Narrative: Patient is a very nice 83-year-old female who presents here after a fall at [facility] care she is accompanied by her son, she fell tripped stuttered backwards, landing on her buttock and then hitting her head, she does not complain a head pain, there is no loss of consciousness, this was witnessed by staff, she is however unable to bear weight on her right leg, complaining of pain in the pelvis right upper leg region. Her right leg is externally rotated and slightly shortened. She is not on any blood thinners, her son requests no narcotics, and she is DNR DNI, with only comfort cares. MD complaint: fall Onset (ago): hour(s) Fall from: standing Fall witnessed: yes, by living facility staff Place fall occurred: home Loss of consciousness: No Prolonged down time: no Symptoms prior to fall: none Context: tripped/slipped Location of injury: pelvis Location of injury - extremities: Right: thigh Severity: moderate Quality: stabbing Associated symptoms (after fall): unable to walk Related Data Home Medications ?Medication ?Instructions ?Recorded ?Confirmed insulin lispro 100 unit/mL 5 - 7 unit subcut TIDWM 02/12/22 03/13/24 subcutaneous pen insulin glargine 100 unit/mL (3 11 unit subcut HS 02/14/22 03/13/24 mL) subcutaneous pen (Lantus Solostar U-100 Insulin) multivitamin (Daily Multi-Vitamin 1 tab PO DAILY 04/11/22 04/03/23 tablet) acetaminophen 500 mg capsule 500 - 1,000 mg PO Q6H PRN pain 10/24/22 03/13/24 flash glucose sensor (FreeStyle #1 ea 01/23/23 02/13/23 Vicky 2 Sensor kit) losartan 25 mg tablet 25 mg PO DAILY 02/13/23 04/03/23 trazodone 50 mg tablet 25 mg PO QPM PRN 02/13/23 03/13/24 escitalopram oxalate 20 mg tablet 20 mg PO DAILY 03/13/24 03/13/24 (Lexapro) Allergies Allergy/AdvReac Type Severity Reaction Status Date / Time lisinopril AdvReac Unknown Verified 04/03/23 10:10 Review of Systems Status of ROS: Reports: 10 or more systems reviewed and unremarkable except as noted in History and below and unobtainable due to mental status [facility] Medical History Left patella fracture ?S82.002A - Unspecified fracture of left patella, initial encounter for closed fracture (ICD-10) Hyperlipidemia ?E78.5 - Hyperlipidemia, unspecified (ICD-10) Type 1 diabetes mellitus ?E10.9 - Type 1 diabetes mellitus without complications (ICD-10) Neuropathy ?G62.9 - Polyneuropathy, unspecified (ICD-10) Hypertension ?I10 - Essential (primary) hypertension (ICD-10) History of intestinal obstruction ?Z87.19 - Personal history of other diseases of the digestive system (ICD-10) Surgical History History of bilateral cataract extraction (2018) ?Z98.41 - Cataract extraction status, right eye (ICD-10) ?Z98.42 - Cataract extraction status, left eye (ICD-10) History of tonsillectomy (194) ?Z90.89 - Acquired absence of other organs (ICD-10) History of colectomy (1980) ?Z90.49 - Acquired absence of other specified parts of digestive tract (ICD- 10) 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) ?Z96.651 - Presence of right artificial knee joint (ICD-10) History of lumpectomy of right breast (2000) ?Z98.890 - Other specified postprocedural states (ICD-10) History of appendectomy (1961) ?Z90.49 - Acquired absence of other specified parts of digestive tract (ICD- 10) H/O arthroscopic knee surgery ?Z98.890 - Other specified postprocedural states (ICD-10) H/O section ?Z98.891 - History of uterine scar from previous surgery (ICD-10) Social History Smoking Status: Never smoker Do you use any of these nicotine containing products: None Second hand tobacco smoke exposure: No How often do you have a drink containing alcohol: never How often do you have six or more drinks on one occasion: Never AUDIT-C Alcohol total score: 0 Non-prescribed substance use: denies use Caffeine: Yes (coffee 4 cups/day 2 mini cans diet coke/week) Are you using contraception or practicing any form of control: No service: No Exam Narrative: Exam Narrative: On examination she is in no apparent distress, her glucose was in the mid 200 range for the ambulance, she is lying comfortable in stabilization room 2 in no apparent distress, it is noted that she is hypertensive, she complains of no pain, her pupils equal round reactive to light her neck is supple there is no tenderness to palpation over C-spine, there is no evidence of any trauma over cranial region her pupils are equal round reactive to light she has absent Gutiérrez signs, her TMs are normal, her upper extremity show no tenderness to palpation, some moderate arthritis is noted of her hands, but her upper limbs move normally. Her chest is good air entry bilateral with no wheezing crackles noted heart sounds are normal she is sore over her right hip pelvis region, on tenderness in any sort of flexion of her right hip gives her pain. She is externally rotated she has normal DP and posterior tibial pulses bilaterally, and some abrasions are noted over her left kneecap. From a old injury. Although her left knee and hip has full range of motion. She is log-rolled onto her left side, she has good air entry bilaterally no tenderness to palpation over T-spine L-spine, nerves no evidence of rate redness rashes bruising noted. Const: Vital Signs, click to edit/add: Vital Signs - 24 hr 03/13/24 18:55 Temperature 98.4 F Pulse Rate [Pulse Oximeter] 78 Respiratory Rate 18 Blood Pressure [Le ft Upper Arm] 200/92 H Pulse Oximetry 94 Oxygen Delivery Me thod Room Air Documenting provider has reviewed patient's vital signs: yes Course Course ED Course: I spent some time talking to family, the CT did show evidence of nondisplaced femoral neck fracture, I did talk to my Hospital Medicine provider Ela Dodson about this, and also talked to the PA from Orthopedics. We will admit her to the hospital with surgery likely tomorrow or the next day. Family was comfortable this she is DNR DNI Vital Signs Vital signs: Initial Vital Signs Temperature 98.4 F 03/13/24 18:55 Temperature Source Temporal Artery Scan 03/13/24 18:55 Pulse Rate 78 03/13/24 18:55 Respiratory Rate 18 03/13/24 18:55 Blood Pressure 200/92 H 03/13/24 18:55 Blood Pressure Mean 128 H 03/13/24 18:55 Pulse Oximetry 94 03/13/24 18:55 Oxygen Delivery Method Room Air 03/13/24 18:55 Vital Signs Temperature 98.4 F 03/13/24 18:55 Pulse Rate 78 03/13/24 18:55 Respiratory Rate 18 03/13/24 18:55 Blood Pressure 200/92 H 03/13/24 18:55 Pulse Oximetry 94 03/13/24 18:55 Oxygen Delivery Method Room Air 03/13/24 18:55 Temperature 98.4 F 03/13/24 18:55 Pulse Rate 78 03/13/24 18:55 Respiratory Rate 18 03/13/24 18:55 Blood Pressure 200/92 H 03/13/24 18:55 Pulse Oximetry 94 03/13/24 18:55 Oxygen Delivery Method Room Air 03/13/24 18:55 Medications Administered Medications: Discontinued Medications Generic Name Dose Route Start Last Admin Trade Name Garettq PRN Reason Stop Dose Admin Acetaminophen 1,000 mg 03/13/24 19:09 03/13/24 20:40 Acetaminophen 500 Mg Tablet PO 03/13/24 19:10 Not Given ONCE ONE MDM - Fall MDM Narrative Medical decision making narrative: I did consider multiple things here including head injury, and bleeds, after discussion with her son, thought that he does not want to go with a CT scan, and I think this is a reasonable course as there is no evidence of any bruising, I do however think this is possible hip fracture/pelvis fracture we will do x-rays which she is in agreement with give her some Tylenol, and I will discuss with them. Medical Records Attestation: I reviewed the patient's medical records. Discharge Plan Discharge Clinical Impression: Closed fracture of right hip, Type 1 diabetes mellitus, Dementia, Fall Patient Disposition: Admitted As Inpatient Condition: Stable
--- NOTE | 2024-03-13 20:01 | CRLHL7_ITS ---
For Patients: As a result of the Cures Act, medical imaging exams and procedure reports are released immediately into your electronic medical record. You may view this report before your referring provider. If you have questions, please contact your health care provider. INDICATION: Fall, hip pain TECHNIQUE: CT right hip without i.v. contrast. Coronal and sagittal reformats were obtained. COMPARISON: Radiograph 03/13/2024 FINDINGS: Bone: There is a nondisplaced fracture in the right femoral neck with fracture lines involving the greater tuberosity and intertrochanteric region. Joint: The left hip joint as moderate concentric joint space narrowing. No significant joint effusion is seen. Soft tissue: Unremarkable. No radiopaque foreign bodies are seen. Moderate vascular calcifications are present. IMPRESSION: 1. There is a nondisplaced fracture in the right femoral neck with fracture lines involving the greater tuberosity and intertrochanteric region. Dictated by Osmani Garcia MD @ 03/13/2024 8:51:50 PM Please note that all CT scans at this facility use dose modulation, iterative reconstruction, and/or weight-based dosing when appropriate to reduce radiation dose to as low as reasonably achievable. Dictated by: Osmani Garcia MD @ 03/13/2024 20:56:02 (Electronically Signed)
--- NOTE | 2024-03-13 22:44 | P.IMHP_ITS ---
Hospitalist- H&P: HPI History of Present Illness Date Seen: 03/13/24 Chief complaint: Leg fracture Narrative: Sadia Madsen is a 83 year old female past medical history significant for type 1 diabetes mellitus insulin dependent, recurrent falls, hypertension no longer on medication, Alzheimer's dementia, depression is admitted to the medical floor from the ED for surgical management of right hip fracture. Patient is a resident at [address] [place] [address] in the memory care unit. Her son has left for the evening so history is obtained from ED and documentation. Patient had a witnessed fall this evening, striking her head without loss of consciousness, landing on her right hip. In the ED, patient's son initially verbalized wish for comfort cares, nonnarcotic management, and no CT evaluations. A hip x-ray showed concern for a right hip fracture so consent was given for a right hip CT. ED provider discussed with son as well as Orthopedic surgery with plan no to proceed with surgical repair. Currently, no meaningful information is obtained from the patient given her significant dementia. Nursing staff discussed with son use of low dose of narcotics to appropriately manage patient's pain. Labs an EKG are ordered upon arrival to the floor. Patient's diabetes will be managed with glargine and insulin sliding scale. Nonsmoker. No alcohol use. Unable to obtain information on previous anesthesia complications from the patient. Previous orthopedic surgery, total right knee arthroplasty with Dr. Montalvo March 2022. POLST reviewed. DNR/DNI. Comfort cares only. Son, Gus, is HCA. Not available to discuss desire to proceed with surgery. Review of Systems Narrative: REVIEW OF SYSTEMS: Complete review of systems performed and negative unless otherwise stated in HPI or below. [facility] Medical History Left patella fracture ?S82.002A - Unspecified fracture of left patella, initial encounter for closed fracture (ICD-10) Hyperlipidemia ?E78.5 - Hyperlipidemia, unspecified (ICD-10) Type 1 diabetes mellitus ?E10.9 - Type 1 diabetes mellitus without complications (ICD-10) Neuropathy ?G62.9 - Polyneuropathy, unspecified (ICD-10) Hypertension ?I10 - Essential (primary) hypertension (ICD-10) History of intestinal obstruction ?Z87.19 - Personal history of other diseases of the digestive system (ICD-10) Surgical History History of bilateral cataract extraction (2018) ?Z98.41 - Cataract extraction status, right eye (ICD-10) ?Z98.42 - Cataract extraction status, left eye (ICD-10) History of tonsillectomy (1947) ?Z90.89 - Acquired absence of other organs (ICD-10) History of colectomy (1980) ?Z90.49 - Acquired absence of other specified parts of digestive tract (ICD- 10) 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) ?Z96.651 - Presence of right artificial knee joint (ICD-10) History of lumpectomy of right breast (2000) ?Z98.890 - Other specified postprocedural states (ICD-10) History of appendectomy (1961) ?Z90.49 - Acquired absence of other specified parts of digestive tract (ICD- 10) H/O arthroscopic knee surgery ?Z98.890 - Other specified postprocedural states (ICD-10) H/O section ?Z98.891 - History of uterine scar from previous surgery (ICD-10) Social History Smoking Status: Never smoker Do you use any of these nicotine containing products: None Second hand tobacco smoke exposure: No How often do you have a drink containing alcohol: never How often do you have six or more drinks on one occasion: Never AUDIT-C Alcohol total score: 0 Non-prescribed substance use: denies use Caffeine: Yes (coffee 4 cups/day 2 mini cans diet coke/week) Are you using contraception or practicing any form of control: No service: No Meds Home Medications and Allergies Home Medications ?Medication ?Instructions ?Recorded ?Confirmed ?Type insulin lispro 100 unit/mL 5 - 7 unit subcut TIDWM 02/12/22 03/13/24 History subcutaneous pen insulin glargine 100 unit/mL (3 11 unit subcut HS 02/14/22 03/13/24 History mL) subcutaneous pen (Lantus Solostar U-100 Insulin) multivitamin (Daily Multi-Vitamin 1 tab PO DAILY 04/11/22 04/03/23 History tablet) acetaminophen 500 mg capsule 500 - 1,000 mg PO Q6H PRN pain 10/24/22 03/13/24 History flash glucose sensor (FreeStyle #1 ea 01/23/23 02/13/23 History Vicky 2 Sensor kit) losartan 25 mg tablet 25 mg PO DAILY 02/13/23 04/03/23 History trazodone 50 mg tablet 25 mg PO QPM PRN 02/13/23 03/13/24 History escitalopram oxalate 20 mg tablet 20 mg PO DAILY 03/13/24 03/13/24 History (Lexapro) Allergies Allergy/AdvReac Type Severity Reaction Status Date / Time lisinopril AdvReac Unknown Verified 04/03/23 10:10 Exam Narrative: Exam Narrative: PHYSICAL EXAM General: Lying supine in bed, smiles HEENT: Normocephalic, atraumatic, sclera white, EOMI, oral mucosa moist Cardiovascular: RRR, S1S2. No pitting edema Pulmonary: CTA bilaterally without rhonchi, rales, expiratory wheezes. No dyspnea on room air Abdominal: Soft, nondistended, NTTP Neurological: Alert, confused, not oriented. Extremities: RLE shortened, externally rotated. Neurovascularly intact Skin: Warm, dry. Const: Vital Signs, click to edit/add: Vital Signs - 24 hr 03/13/24 18:55 Temperature 98.4 F Pulse Rate [Pulse Oximeter] 78 Respiratory Rate 18 Blood Pressure [Le ft Upper Arm] 200/92 H Pulse Oximetry 94 Oxygen Delivery Me thod Room Air Hospitalist - H&P: Result Labs Labs: Ordered on admission ECG Interpretation: Ordered on admission Imaging Right Hip x-ray: Attestation: I have reviewed the pertinent imaging results. Radiologist's impression: Bone: Serpiginous lucencies are seen over the greater trochanter, likely due to a nondisplaced fracture. Moderate diffuse osteopenia is present. Joint: The hip joints are unremarkable. The visualized sacroiliac joints are unremarkable in appearance. The pubic symphysis is normal in appearance. Soft tissue: Unremarkable. No radiopaque foreign bodies are seen. Mild vascular calcifications are noted. IMPRESSION: 1. Serpiginous lucencies are seen over the greater trochanter, likely due to a nondisplaced fracture. Evaluation of the right femoral neck is limited on frontal view due to external rotation which causes foreshortening. Dedicated hip radiograph with internal rotation may be helpful. CT hip: Attestation: I have reviewed the pertinent imaging results. Radiologist's impression: Bone: There is a nondisplaced fracture in the right femoral neck with fracture lines involving the greater tuberosity and intertrochanteric region. Joint: The left hip joint as moderate concentric joint space narrowing. No significant joint effusion is seen. Soft tissue: Unremarkable. No radiopaque foreign bodies are seen. Moderate vascular calcifications are present. IMPRESSION: 1. There is a nondisplaced fracture in the right femoral neck with fracture lines involving the greater tuberosity and intertrochanteric region. Assessment and Plan Assessment and plan (1) Fall: Problem comment: -witnessed ground level fall at [facility], [place]. Acute on chronic, recurrent falls -resulting in right hip fracture -struck head, no LOC, no headache. Not anticoagulated. Son declined head CT for further evaluation Status: Acute (2) Closed fracture of right hip: Problem comment: -s/p ground level fall -CT shows nondisplaced fracture in the right femoral neck with fracture lines involving the greater tuberosity and intertrochanteric region -initial documentation shows son wishing for comfort cares. ED provider d iscussed with son as well as Orthopedic Surgery. Plan for surgical repair tomorrow -pain management with scheduled Tylenol, lidocaine patch, ice, positioning. Son initially declines use of narcotics as reportedly worsens delirium but understanding of need for humane use of low dose narcotics perioperatively -NPO, IVF -obtain labs and ekg on admission. No significant pulmonary history -hip precautions. NWB RLE. Indwelling youssef cath -SCDs for VTE PPx -Ortho Surgery consult in am -post operatively, uncertain how well patient will be able to meaningfully participate in therapies given significant dementia Status: Acute (3) Type 1 diabetes mellitus: Problem comment: -A1c in 2022 was >9. Repeat ordered -home glargine is 9 units at HS. BS is 383 currently. Give 3 units glargine tonight, NPO -glucose checks ACHS, insulin sliding scale - CGM and accucheck significantly different so will use our accucheck Status: Acute (4) Dementia of the Alzheimer's type with late onset without behavioral disturbance: Problem comment: -prior to admission, son reporting DNR/DNI, comfort cares. Would now like to proceed with surgery. As above, unknown rehab capabilities Status: Acute Total Time Spent Total Time Spent: Total time spent caring for the patient today was 75 minutes. This includes time spent for the visit reviewing the chart, time spent during the visit, time spent after the visit and documentation and planning in coordination of care.
[2024-03-13 22:53] VITALS: O2SAT 95
[2024-03-14] VITALS (23 sets, daily range): BP systolic 101–161; BP diastolic 51–82; PULSE 65–84; RESP 16–20; TEMP 35.9–37.6; O2SAT 86–100
[2024-03-14] MEDS: LIDOCAINE 5% PATCH 1 PATCH TRANSDERMA ×2 (00:11→23:02)
[2024-03-14] MEDS: ACETAMINOPHEN 500 MG TABLET 1000 MG PO (01:06)
[2024-03-14] MEDS: TRAZODONE HCL 50 MG TABLET 25 MG PO (01:06)
[2024-03-14 01:13] LABS: Basophils Absolute Auto 0.03 K/uL (0.00-0.30); Basophils Percent Auto 0.3 % (0.0-3.0); Eosinophils Absolute Auto 0.17 K/uL (0.00-0.50); Eosinophils Percent Auto 1.7 % (0.0-7.0); Hematocrit 36.2 % (33.0-51.0); Hemoglobin* 12.1 gm/dL (12.0-16.0); Immature Granulocytes Abs Auto 0.11 K/uL (0.00-0.30); Immature Granulocytes Pct Auto 1.1 %; Lymphocytes Percent Auto 10.2 % (20-44); Mean Corpuscular HGB Conc 33 gm/dL (32-36); Mean Corpuscular Hemoglobin 32 pg (26-34); Mean Corpuscular Volume 96 fL (80-100); Neutrophils Percent Auto 78.7 % (42.0-72.0); Platelet Count* 243 K/uL (140-440); Red Blood Count 3.79 m/uL (4.00-5.20); White Blood Count* 10.26 K/uL (4.50-11.00)
[2024-03-14 01:34] LABS: INR 1.01 (0.91-1.10); Prothrombin Time 13.9 Seconds
[2024-03-14 01:37] LABS: Slide Review Reflex No
[2024-03-14 01:40] LABS: Chloride* 97 mmol/L (96-114); Sodium* 132 mmol/L (135-149)
[2024-03-14 01:43] LABS: Creatinine* 0.5 mg/dL (0.5-1.5); Estimated Glomerular Filt Rate 94 ml/min
[2024-03-14 01:44] LABS: Anion Gap 9 mEq/L (7-15); Blood Urea Nitrogen* 25 mg/dL (7-30); Carbon Dioxide* 26 mmol/L (20-32)
[2024-03-14] MEDS: 0.9 % SODIUM CHLORIDE 1000 ml 1,000 ML 75 ML IV ×2 (01:47→21:58)
[2024-03-14] MEDS: SODIUM CHLORIDE 0.9 % (FLUSH) 10 ML SYRINGE 5 ML IVF ×2 (01:49→21:59)
[2024-03-14] MEDS: MORPHINE 2 MG/ML inj IVP (01:49)
[2024-03-14 01:53] LABS: Glucose* 363 mg/dL (60-115)
[2024-03-14 06:42] LABS: Hematocrit 35.4 % (33.0-51.0); Hemoglobin* 11.7 gm/dL (12.0-16.0); Mean Corpuscular HGB Conc 33 gm/dL (32-36); Mean Corpuscular Hemoglobin 32 pg (26-34); Mean Corpuscular Volume 95 fL (80-100); Platelet Count* 252 K/uL (140-440); Red Blood Count 3.72 m/uL (4.00-5.20)
[2024-03-14 06:53] LABS: Slide Review Reflex No
[2024-03-14 07:07] LABS: Chloride* 99 mmol/L (96-114)
[2024-03-14 07:08] LABS: Sodium* 132 mmol/L (135-149)
--- NOTE | 2024-03-14 07:08 | PC.NURSE ---
Pt with dementia unable to comprehend what is going on. Morphine 1mg given and pt has rested comfortably all night. arouses when moved but goes back to sleep easily. [place] draining clear yellow urine. NPO since midnight for surgery this am
[2024-03-14 07:10] LABS: Anion Gap 8 mEq/L (7-15); Carbon Dioxide* 25 mmol/L (20-32); Creatinine* 0.5 mg/dL (0.5-1.5); Estimated Glomerular Filt Rate 94 ml/min
[2024-03-14 07:11] LABS: Blood Urea Nitrogen* 24 mg/dL (7-30); Calcium* 8.7 mg/dL (8.4-10.6)
[2024-03-14 07:15] LABS: Glucose* 356 mg/dL (60-115)
--- NOTE | 2024-03-14 08:46 | P.IMPN_ITS ---
Progress Note: A&P Assessment and plan (1) Closed fracture of right hip: Problem details: -s/p ground level fall -CT shows nondisplaced fracture in the right femoral neck with fracture lines involving the greater tuberosity and intertrochanteric region -initial documentation shows son wishing for comfort cares. ED provider discussed with son as well as Orthopedic Surgery. Plan for surgical repair tomorrow -pain management with scheduled Tylenol, lidocaine patch, ice, positioning. Son initially declines use of narcotics as reportedly worsens delirium but understanding of need for humane use of low dose narcotics perioperatively -hip precautions. NWB RLE. Indwelling youssef cath -Ortho Surgery consulted s/p ORIF . -Mobilize with physical therapy and occupational therapy. Weight bear as tolerated right lower extremity. - Postoperative prophylactic antibiotics x2 doses - DVT prophylaxis: aspirin 81 mg b.i.d. for 35 days, SCDs - Follow-up in Orthopedic Clinic in 1-2 weeks. Status: Acute (2) Fall: Problem details: -witnessed ground level fall at [facility], [place]. Acute on chronic, recurrent falls -resulting in right hip fracture -struck head, no LOC, no headache. Not anticoagulated. Son declined head CT for further evaluation Status: Acute (3) Type 1 diabetes mellitus: Problem details: -A1c in 2022 was >9. Repeat ordered -home glargine is 9 units at HS. BS is 383 currently. Give 3 units glargine tonight, NPO -glucose checks ACHS, insulin sliding scale - CGM and accucheck significantly different so will use our accucheck Status: Acute (4) Dementia of the Alzheimer's type with late onset without behavioral disturba nce: Problem details: -prior to admission, son reporting DNR/DNI, comfort cares. Would now like to proceed with surgery. As above, unknown rehab capabilities Status: Acute Plan As above Time Spent With Patient Total time spent: Today I spent 50 minutes seeing the patient, reviewing Expanse and EPIC notes/diagnostics, discussing the care plan with our care time that includes social work, PT/OT, pharmacy, RT, fdc and documenting my impressions and plan in the medical record. Subjective Date Seen: 03/14/24 Interval history: No overnight events, patient seen at bedside. Just got a Right femoral neck fracture with internal fixation. Estimated blood loss was 50 mL, hemodynami mindy stable, blood pressure at the lower side. Patient with severe dementia at baseline. Exam Narrative: Exam Narrative: Physical exam GENERAL: Confused, no acute distress. HEAD AND NECK: Atraumatic, normocephalic CARDIOVASCULAR: RRR. Normal S1, S2. No murmurs. RESPIRATORY: Clear to auscultation B/L. Good air entry B/L. No wheezes or rhonchi. GASTROINTESTINAL: Not distended, not tender to palpation. NEUROLOGY: Alert, confused, not oriented. EXT:: RLE shortened, externally rotated Const: Vital Signs, click to edit/add: Vital Signs - 24 hr 03/13/24 18:55 03/13/24 22:53 03/14/24 03:00 Temperature 98.4 F 97.7 F Pulse Rate [Pulse Oximeter] 78 Pulse Rate [Right Pulse Oximeter] 79 Respiratory Rate 18 20 Blood Pressure [Le ft Upper Arm] 200/92 H Blood Pressure [Ri ght Arm] 123/62 Pulse Oximetry 94 95 94 Oxygen Delivery Me thod Room Air Room Air Room Air 03/14/24 06:28 Temperature 97.6 F Pulse Rate [Pulse Oximeter] Pulse Rate [Right Pulse Oximeter] 78 Respiratory Rate 20 Blood Pressure [Le ft Upper Arm] Blood Pressure [Ri ght Arm] Pulse Oximetry 93 Oxygen Delivery Me thod Room Air Labs Labs: Laboratory Results - last 24 hr 03/13/24 03/14/24 03/14/24 22:53 00:56 01:10 WBC 10.26 RBC 3.79 L Hgb 12.1 Hct 36.2 MCV 96 MCH 32 MCHC 33 RDW Coeff of Cleo 13.0 Plt Count 243 Neut % (Auto) 78.7 H Lymph % (Auto) 10.2 L Stephenson % (Auto) 8.0 Eos % (Auto) 1.7 Baso % (Auto) 0.3 Neut # (Auto) 8.10 H Lymph # (Auto) 1.00 Stephenson # (Auto) 0.80 Eos # (Auto) 0.17 Baso # (Auto) 0.03 Abs Immat Gran (auto) 0.11 Imm/Tot Granulo (auto) 1.1 INR 1.01 Sodium 132 L Potassium 4.0 Chloride 97 Carbon Dioxide 26 Anion Gap 9 BUN 25 Creatinine 0.5 Estimated GFR 94 Glucose 363 H* Hemoglobin A1c Calcium 9.0 03/14/24 05:40 WBC 8.70 RBC 3.72 L Hgb 11.7 L Hct 35.4 MCV 95 MCH 32 MCHC 33 RDW Coeff of Cleo Plt Count 252 Neut % (Auto) Lymph % (Auto) Stephenson % (Auto) Eos % (Auto) Baso % (Auto) Neut # (Auto) Lymph # (Auto) Stephenson # (Auto) Eos # (Auto) Baso # (Auto) Abs Immat Gran (auto) Imm/Tot Granulo (auto) INR Sodium 132 L Potassium 4.0 Chloride 99 Carbon Dioxide 25 Anion Gap 8 BUN 24 Creatinine 0.5 Estimated GFR 94 Glucose 356 H* Hemoglobin A1c 9.0 H Calcium 8.[address]- Other: Attestation: I have reviewed the pertinent imaging results. Radiologist's impression: TECHNIQUE: CT right hip without i.v. contrast. Coronal and sagittal reformats were obtained. COMPARISON: Radiograph 03/13/2024 FINDINGS: Bone: There is a nondisplaced fracture in the right femoral neck with fracture lines involving the greater tuberosity and intertrochanteric region. Joint: The left hip joint as moderate concentric joint space narrowing. No significant joint effusion is seen. Soft tissue: Unremarkable. No radiopaque foreign bodies are seen. Moderate vascular calcifications are present. IMPRESSION: 1. There is a nondisplaced fracture in the right femoral neck with fracture lines involving the greater tuberosity and intertrochanteric region. Dictated by Osmani Garcia MD @ 03/13/2024 8:51:50 PM Please note that all CT scans at this facility use dose modulation, iterative reconstruction, and/or weight-based dosing when appropriate to reduce radiation dose to as low as reasonably achievable. Dictated by: Osmani Garcia MD @ 03/13/2024 20:56:02 (Electronically Signed)
[2024-03-14] MEDS: INSULIN ASPART 100 UNIT/ML 6 UNIT SUBCUT (08:59)
--- NOTE | 2024-03-14 09:00 | P.ORCN_ITS ---
History of Present Illness HPI Date Seen: 03/14/24 Consult date: 03/13/24 Requesting physician: Ela Butts Chief complaint: Right Hip Fracture Narrative: Destiney is an 83-year-old female past medical history significant for type 1 diabetes mellitus insulin dependent, recurrent falls, hypertension no longer on medication, Alzheimer's dementia. She is a resident at [facility] in the memory care unit. She was admitted last night following a witnessed ground level fall, which resulted in right hip pain and inability to bear weight. Radiographic imaging obtained in the emergency department revealed a right hip fracture. Prior to the injury, according to her son, she was able to ambulate without any assistive devices. Patient has significant dementia and is unable to follow any commands or answer any questions. [facility] Medical History Left patella fracture ?S82.002A - Unspecified fracture of left patella, initial encounter for closed fracture (ICD-10) Hyperlipidemia ?E78.5 - Hyperlipidemia, unspecified (ICD-10) Type 1 diabetes mellitus ?E10.9 - Type 1 diabetes mellitus without complications (ICD-10) Neuropathy ?G62.9 - Polyneuropathy, unspecified (ICD-10) Hypertension ?I10 - Essential (primary) hypertension (ICD-10) History of intestinal obstruction ?Z87.19 - Personal history of other diseases of the digestive system (ICD-10) Surgical History History of bilateral cataract extraction (2018) ?Z98.41 - Cataract extraction status, right eye (ICD-10) ?Z98.42 - Cataract extraction status, left eye (ICD-10) History of tonsillectomy (1947) ?Z90.89 - Acquired absence of other organs (ICD-10) History of colectomy (1980) ?Z90.49 - Acquired absence of other specified parts of digestive tract (ICD- 10) 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) ?Z96.651 - Presence of right artificial knee joint (ICD-10) History of lumpectomy of right breast (2000) ?Z98.890 - Other specified postprocedural states (ICD-10) History of appendectomy (1962) ?Z90.49 - Acquired absence of other specified parts of digestive tract (ICD- 10) H/O arthroscopic knee surgery ?Z98.890 - Other specified postprocedural states (ICD-10) H/O section ?Z98.891 - History of uterine scar from previous surgery (ICD-10) Social History What is your current living situation?: I presently have a place to live Problems where you live: unable to answer Problems where you live details: unknown In the past 12 months, utilities in danger of being shut off: unable to answer In the past 12 mos, have been you worried that your food would run out before you had money to buy more?: unable to answer In the past 12 mos, the food you bought just didn't last and you didn't have money to buy more?: unable to answer Smoking Status: Never smoker Do you use any of these nicotine containing products: None Second hand tobacco smoke exposure: No How often do you have a drink containing alcohol: never How often do you have six or more drinks on one occasion: Never AUDIT-C Alcohol total score: 0 Non-prescribed substance use: denies use Caffeine: Yes (coffee 4 cups/day 2 mini cans diet coke/week) How often does anyone, including family, friends and others, physically hurt you : unable to answer How often does anyone, including family, friends and others, insult or talk down to you: unable to answer How often does anyone, including family, friends and others, threaten you with harm: unable to answer How often does anyone, including family, friends and others, scream or curse at you: unable to answer Are you using contraception or practicing any form of control: No service: No Meds Home Medications and Allergies Home Medications ?Medication ?Instructions ?Recorded ?Confirmed ?Type insulin lispro 100 unit/mL 5 - 7 unit subcut TIDWM 02/12/22 03/13/24 History subcutaneous pen insulin glargine 100 unit/mL (3 11 unit subcut HS 02/14/22 03/13/24 History mL) subcutaneous pen (Lantus Solostar U-100 Insulin) acetaminophen 500 mg capsule 500 - 1,000 mg PO Q6H PRN pain 10/24/22 03/13/24 History flash glucose sensor (FreeStyle #1 ea 01/23/23 02/13/23 History Vicky 2 Sensor kit) trazodone 50 mg tablet 25 mg PO QPM PRN 02/13/23 03/13/24 History escitalopram oxalate 20 mg tablet 20 mg PO DAILY 03/13/24 03/13/24 History (Lexapro) Allergies Allergy/AdvReac Type Severity Reaction Status Date / Time lisinopril AdvReac Unknown Verified 04/03/23 10:10 Ortho Exam Narrative Exam Narrative: General: Patient is alert but is not oriented and does not follow any commands. She has nonsensical speech. Musculoskeletal: Right lower extremity was examined. Right leg was noted be externally rotated. The 2+ DP and PT pulses. Foot was warm and well perfused. Const Vital Signs, click to edit/add: Vital Signs - 24 hr 03/13/24 18:55 03/13/24 22:53 03/14/24 03:00 Temperature 98.4 F 97.7 F Pulse Rate [Pulse Oximeter] 78 Pulse Rate [Right Pulse Oximeter] 79 Respiratory Rate 18 20 Blood Pressure [Left Upper Arm] 200/92 H Blood Pressure [Right Arm] 123/62 Pulse Oximetry 94 95 94 Oxygen Delivery Method Room Air Room Air Room Air 03/14/24 06:28 03/14/24 08:48 Temperature 97.6 F 98.9 F Pulse Rate [Pulse Oximeter] Pulse Rate [Right Pulse Oximeter] 78 79 Respiratory Rate 20 16 Blood Pressure [Left Upper Arm] Blood Pressure [Right Arm] 140/72 H Pulse Oximetry 93 94 Oxygen Delivery Method Room Air Room Air Results Labs Labs: Laboratory Results - last 48 hr 03/13/24 03/14/24 03/14/24 22:53 00:56 01:10 WBC 10.26 RBC 3.79 L Hgb 12.1 Hct 36.2 MCV 96 MCH 32 MCHC 33 RDW Coeff of Cleo 13.0 Plt Count 243 Neut % (Auto) 78.7 H Lymph % (Auto) 10.2 L Kent[place] % (Auto) 8.0 Eos % (Auto) 1.7 Baso % (Auto) 0.3 Neut # (Auto) 8.10 H Lymph # (Auto) 1.00 Kenton # (Auto) 0.80 Eos # (Auto) 0.17 Baso # (Auto) 0.03 Abs Immat Gran (auto) 0.11 Imm/Tot Granulo (auto) 1.1 INR 1.01 Sodium 132 L Potassium 4.0 Chloride 97 Carbon Dioxide 26 Anion Gap 9 BUN 25 Creatinine 0.5 Estimated GFR 94 Glucose 363 H* Hemoglobin A1c Calcium 9.0 03/14/24 05:40 WBC 8.70 RBC 3.72 L Hgb 11.7 L Hct 35.4 MCV 95 MCH 32 MCHC 33 RDW Coeff of Cleo Plt Count 252 Neut % (Auto) Lymph % (Auto) Kenton % (Auto) Eos % (Auto) Baso % (Auto) Neut # (Auto) Lymph # (Auto) Kenton # (Auto) Eos # (Auto) Baso # (Auto) Abs Immat Gran (auto) Imm/Tot Granulo (auto) INR Sodium 132 L Potassium 4.0 Chloride 99 Carbon Dioxide 25 Anion Gap 8 BUN 24 Creatinine 0.5 Estimated GFR 94 Glucose 356 H* Hemoglobin A1c 9.0 H Calcium 8.7 Diagnostic results Additional Comments: Right hip x-rays and CT scan performed 03/13/2024 were reviewed. These demonstrate a nondisplaced transcervical femoral neck fracture. Assessment and Plan Assessment and plan (1) Fall: Problem comment: -witnessed ground level fall at [facility], [place]. Acute on chronic, recurrent falls -resulting in right hip fracture -struck head, no LOC, no headache. Not anticoagulated. Son declined head CT for further evaluation Status: Acute Total time spent: Total time spent is greater than 50% in coordination of care (as documented) at patient's floor/unit and/or counseling patient: (2) Closed fracture of right hip: Problem comment: -s/p ground level fall -CT shows nondisplaced fracture in the right femoral neck with fracture lines involving the greater tuberosity and intertrochanteric region -initial documentation shows son wishing for comfort cares. ED provider discussed with son as well as Orthopedic Surgery. Plan for surgical repair tomorrow -pain management with scheduled Tylenol, lidocaine patch, ice, positioning. Son initially declines use of narcotics as reportedly worsens delirium but understanding of need for humane use of low dose narcotics perioperatively -NPO, IVF -obtain labs and ekg on admission. No significant pulmonary history -hip precautions. NWB RLE. Indwelling youssef cath -SCDs for VTE PPx -Ortho Surgery consult in am -post operatively, uncertain how well patient will be able to meaningfully participate in therapies given significant dementia Status: Acute Total time spent: Total time spent is greater than 50% in coordination of care (as documented) at patient's floor/unit and/or counseling patient: (3) Type 1 diabetes mellitus: Problem comment: -A1c in 2022 was >9. Repeat ordered -home glargine is 9 units at HS. BS is 383 currently. Give 3 units glargine tonight, NPO -glucose checks ACHS, insulin sliding scale - CGM and accucheck significantly different so will use our accucheck Status: Acute Total time spent: Total time spent is greater than 50% in coordination of care (as documented) at patient's floor/unit and/or counseling patient: (4) Dementia of the Alzheimer's type with late onset without behavioral disturbance: Problem comment: -prior to admission, son reporting DNR/DNI, comfort cares. Would now like to proceed with surgery. As above, unknown rehab capabilities Status: Acute Total time spent: Total time spent is greater than 50% in coordination of care (as documented) at patient's floor/unit and/or counseling patient: Plan Patient has a a nondisplaced transcervical femoral neck fracture. Risks and benefits of operative treatment and alternatives to surgery were discussed with the patient's son (Rajeev) who is her power of employment attorney. Recommendation was subsequently made for surgical intervention consisting of right hip closed reduction and internal fixation to allow for early mobilization and advancement of weight-bearing, decreased pain, and healing of the fracture. Risks of surgery to include, but not limited to, infection, neurovascular injury, malunion, nonunion, hip avascular necrosis, deep vein thrombosis, pulmonary embolism, heart attack, stroke, and even were discussed with patient's son. All of their questions were answered. After discussion, they were in agreement with plan to proceed with surgery. Patient has been admitted to the hospitalist for perioperative medical management. She has been medically optimized and cleared for the planned surgical procedure . She is to remain on bedrest with plan for surgery this morning. She has been NPO since midnight for anticipated surgery.
--- NOTE | 2024-03-14 09:00 | CRLHL7_ITS ---
For Patients: As a result of the Century Cures Act, medical imaging exams and procedure reports are released immediately into your electronic medical record. You may view this report before your referring provider. If you have questions, please contact your health care provider. INDICATION: Intraoperative evaluation. Right hip surgery. TECHNIQUE: Two portable spot intraoperative images of the right hip. Fluoroscopic guidance utilized. FINDINGS: 56 seconds of fluoroscopy time utilized intraoperatively. Postsurgical change with metallic screws traversing the intertrochanteric femur with a single transversely oriented screw in the proximal femur just below the lesser trochanter. Adequate alignment on these two views. IMPRESSION: 56 seconds fluoroscopy time utilized intraoperatively at the time of right hip surgery. Dictated by Satya Ledbetter MD @ 03/14/2024 2:28:39 PM (Electronically Signed)
--- NOTE | 2024-03-14 09:05 | REH.PT ---
PT orders received, Destiney possibly scheduled for surgery this morning. Will complete PT evaluation tomorrow.
--- NOTE | 2024-03-14 09:47 | PM.ORPRC ---
Procedure Note Date of procedure: 03/14/24 Procedure: PREOPERATIVE DIAGNOSES: 1. Right transcervical femoral neck fracture, closed, nondisplaced POSTOPERATIVE DIAGNOSES: 1. Right transcervical femoral neck fracture, closed, nondisplaced PROCEDURE: 1. Right femoral neck fracture fixation with internal fixation 2. 09518 - Intraoperative fluoroscopy up to 1 hour SURGEON: Moo Waters MD DIRECTOR CALL CENTER SALES: [employer] Rm P[employer]C.. Assistance was medically necessary in order to safely perform the procedure without increased blood loss or morbidity. Assistance was provided through positioning, instrumentation, and retraction of incisions for better visualization of underlying structures and cauterization for hemostasis. Assistance was also provided through wound closure, instillation of anesthetic, application of sterile dressing, and safe transport from the operative suite. ANESTHESIA: Spinal IMPLANTS: Synthes femoral neck system plate 1 hole with 85 mm femoral neck system bolt, 85 mm antirotation screw, and 5 mm x 36 mm locking screw EBL: 50 ml COMPLICATIONS: None evident INDICATIONS: Destiney is a 83-year-old male who sustained a witnessed ground level fall yesterday. She subsequently developed right hip pain and was unable to bear weight. After presenting to the [facility], she was diagnosed with a nondisplaced femoral neck fracture. Surgical stabilization of this fracture is recommended to allow for early mobilization and advancement of weight-bearing, decreased pain, and healing of the fracture. Prior to procedure, risks and benefits of the operative and non operative treatment were discussed with the patient's son. After discussion of risks, benefits, and alternatives of surgery informed consent was obtained and the right hip was marked. FINDINGS: Nondisplaced transcervical femoral neck fracture PROCEDURE: Patient was brought to the operating room, where spinal anesthesia was administered by the anesthesia staff. 1 g IV Ancef was administered within 1 hr incision preoperatively. The patient was positioned on the [place] table. A padded perineal post was placed and all bone prominences were well padded. Right hip and lower extremity were prepped and draped in usual sterile fashion. A surgical time-out was performed confirming patient identity, surgical site, and surgical procedure. C-arm fluoroscopic imaging was utilized to obtain AP and lateral views of the right hip, confirming that the fracture remained nondisplaced. A skin incision was then made over the lateral aspect of the hip in line with the femoral neck axis, which measured approximately 6 cm in length. Deep fascial layer was incised in line with the skin incision and blunt dissection was used to dissect down to bone. Using the 130 degree angle guide, a guidewire was placed into the center-center position in the subchondral bone of the femoral head on both AP and lateral images. Once the guidewire was confirmed to be in correct position, depth was measured and decision was made to proceed with a 85 mm implant. The opening drill bit and Reamer was then used ream over the guidewire to the correct depth. The femoral neck system implant was then inserted over the guidewire and tapped down until the plate was flush with the lateral aspect of the femur. Guidewire was then removed. The hole for the locking screw was then drilled through the plate and the correct length 5.0 mm locking screw was inserted and secured into position. Next the hole for the anti rotation screw was drilled, and antirotation screw secured into position. Guides were removed and final fluoroscopic images were obtained which confirmed the fracture reduction and correct placement of the femoral neck implant system. Wound was then irrigated with normal saline. The deep fascial layer was closed with 0 Vicryl and subcutaneous layer was closed with 2-0 Vicryl. Skin was closed with 2-0 Stratafix, 3-0 Monocryl, and Dermabond. Sterile dressing was applied. Patient was awoken from anesthesia and transferred to the PACU in stable condition. PLAN: 1. Patient will be readmitted to the hospitalist service for perioperative medical management. 2. Mobilize with physical therapy and occupational therapy. - Weight bear as tolerated right lower extremity. 3. Pain control: - Acetaminophen and Oxycodone for pain as needed. - IV pain medications for breakthrough pain - encourage ice 4. Postoperative prophylactic antibiotics x2 doses 5. DVT prophylaxis: - aspirin 81 mg b.i.d. for 35 days - SCDs 6. Follow-up in Orthopedic Clinic in 1-2 weeks.
[2024-03-14] MEDS: CEFAZOLIN 1 GM inj IVP (10:08)
[2024-03-14] MEDS: LACTATED RINGERS 1000 ML 1,000 ML 500 ML IV (11:00)
--- NOTE | 2024-03-14 12:21 | W.ANESCHARGE ---
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
--- NOTE | 2024-03-14 12:22 | W.PM.NB ---
Nerve Block Nerve Block Time Seen by Provider: 11:40 Date Seen: 03/14/24 Type of block requested by surgeon for post-operative analgesia: NATHANIEL/LFCN Side: right Time out performed: Yes Verification of patient name: Yes Verification of date of : Yes Site marking: site marked Name of person performing procedure: Kacy Continuous monitoring Was continuous monitoring of O2 sat, B/P, patient monitor, recorded every 15 minutes?: Yes Procedure Checklist: sterile prep, needles and gloves Ultrasound guided. Images saved: Yes Medications given in 5ml increments after negative aspiration: Ropivicaine %: 0.5 mL: 25 Needle gauge: 20 Decadron (mg): 10 Precedex (mcg): 25 Patient tolerated procedure well: Yes Block Charges Block Charge (with Pro Fee): Other Periph Nerve Block Use of Ultrasound Machine for Block: Yes- US Guidance/pain block
[2024-03-14] MEDS: ACETAMINOPHEN 325 MG TABLET 650 MG PO ×2 (16:34→21:57)
[2024-03-14] MEDS: CEFAZOLIN 1 GM in 0.9 % SODIUM CHLORIDE Mini-bag 100 ML IVPB (16:34)
[2024-03-14] MEDS: INSULIN ASPART 100 UNIT/ML SUBCUT ×2 (18:37→22:05)
[2024-03-14] MEDS: OXYCODONE 5 MG TABLET 2.5 MG PO (18:41)
--- NOTE | 2024-03-14 19:35 | PC.NURSE ---
End of shift-- Pt pleasantly demented. Alert this evening and verbal but speech is nonsensical. VSS and highest temp this shift 99.7 F temporal. Pt appeared comfortable most of the day, but was grimacing, crying and grasping this evening and was given 2.5mg Oxycodone just prior to shift change. Pt went to OR this morning at roughly 0900 and returned to room at 1220. She was drowsy most of the day following and was repositioned only this shift. Dressing to right hip is C/D/I. Pedal pulses strong and cap refill <3sec. LS CTA. She ate bites of dinner, but did need to be fed. [place] is patent and draining adequate amounts of clear, yellow urine. Son and daughter at bedside today and appear loving and supportive.
[2024-03-14] MEDS: ASPIRIN 81 MG TABLET EC PO (21:57)
[2024-03-14] MEDS: INSULIN GLARGINE,HUM.REC.ANLOG 100 UNIT/ML INSULN.PEN 10 UNIT SUBCUT (22:07)
[2024-03-15] VITALS (7 sets, daily range): BP systolic 130–154; BP diastolic 60–107; PULSE 76–92; RESP 14–18; TEMP 36.5–37.2; O2SAT 95–99
[2024-03-15] MEDS: CEFAZOLIN 1 GM in 0.9 % SODIUM CHLORIDE Mini-bag 100 ML IVPB (00:03)
[2024-03-15] MEDS: ACETAMINOPHEN 325 MG TABLET 650 MG PO ×4 (03:34→22:07)
[2024-03-15 06:18] LABS: Hematocrit 33.8 % (33.0-51.0); Hemoglobin* 11.3 gm/dL (12.0-16.0); Mean Corpuscular HGB Conc 33 gm/dL (32-36); Mean Corpuscular Hemoglobin 32 pg (26-34); Mean Corpuscular Volume 96 fL (80-100); Platelet Count* 236 K/uL (140-440); Red Blood Count 3.52 m/uL (4.00-5.20); White Blood Count* 12.02 K/uL (4.50-11.00)
[2024-03-15 06:19] LABS: Slide Review Reflex No
[2024-03-15 06:39] LABS: Chloride* 103 mmol/L (96-114); Sodium* 134 mmol/L (135-149)
--- NOTE | 2024-03-15 06:40 | PC.NURSE ---
Pt alert and oriented to self only. Pt unable to rate pain, pt facial grimaces?with movement, pain managed with scheduled Tylenol and Lidocaine patch. Pt?s youssef is patent and draining. Pt?s right hip dressing is CDI.?Pt was turned and repositioned throughout night.?
[2024-03-15 06:42] LABS: Creatinine* 0.4 mg/dL (0.5-1.5); Estimated Glomerular Filt Rate 99 ml/min
[2024-03-15 06:43] LABS: Anion Gap 7 mEq/L (7-15); Blood Urea Nitrogen* 25 mg/dL (7-30); Calcium* 8.7 mg/dL (8.4-10.6); Carbon Dioxide* 24 mmol/L (20-32); Glucose* 209 mg/dL (60-115)
--- NOTE | 2024-03-15 07:37 | PM.IMPN1 ---
Progress Note: A&P Assessment and plan (1) Closed fracture of right hip: Problem details: -s/p ground level fall -CT shows nondisplaced fracture in the right femoral neck with fracture lines involving the greater tuberosity and intertrochanteric region -initial documentation shows son wishing for comfort cares. ED provider discussed with son as well as Orthopedic Surgery. Plan for surgical repair tomorrow -pain management with scheduled Tylenol, lidocaine patch, ice, positioning. Son initially declines use of narcotics as reportedly worsens delirium but understanding of need for humane use of low dose narcotics perioperatively -hip precautions. NWB RLE. Indwelling youssef cath -Ortho Surgery consulted s/p ORIF . -Mobilize with physical therapy and occupational therapy. Weight bear as tolerated right lower extremity. - Postoperative prophylactic antibiotics x2 doses - DVT prophylaxis: aspirin 81 mg b.i.d. for 35 days, SCDs - Follow-up in Orthopedic Clinic in 1-2 weeks. Status: Acute (2) Fall: Problem details: -witnessed ground level fall at [facility], [place]. Acute on chronic, recurrent falls -resulting in right hip fracture -struck head, no LOC, no headache. Not anticoagulated. Son declined head CT for further evaluation Status: Acute (3) Type 1 diabetes mellitus: Problem details: -A1c in 2022 was >9. Repeat ordered -home glargine is 9 units at HS. BS is 383 currently. Give 3 units glargine tonight, NPO -glucose checks ACHS, insulin sliding scale - CGM and accucheck significantly different so will use our accucheck Status: Acute (4) Dementia of the Alzheimer's type with late onset without behavioral disturbance: Problem details: -prior to admission, son reporting DNR/DNI, comfort cares. Would now like to proceed with surgery. As above, unknown rehab capabilities Status: Acute Plan As above Discharge plan: Patient to go back to her facility SaturdayMarch 16. Time Spent With Patient Total time spent: Today I spent 50 minutes seeing the patient, reviewing [facility] and EPIC notes/diagnostics, discussing the care plan with our care time that includes social work, PT/OT, pharmacy, RT, residential and documenting my impressions and plan in the medical record. Subjective Date Seen: 03/15/24 Interval history: No overnight events, patient seen at bedside. Status post Right femoral neck fracture with internal fixation. Patient is doing well postoperatively, tolerating food. Patient confused, she ripped her IV cannula out this morning. Exam Narrative: Exam Narrative: GENERAL: Confused, no acute distress. HEAD AND NECK: Atraumatic, normocephalic CARDIOVASCULAR: RRR. Normal S1, S2. No murmurs. RESPIRATORY: Clear to auscultation B/L. Good air entry B/L. No wheezes or rhonchi. GASTROINTESTINAL: Not distended, not tender to palpation. NEUROLOGY: Alert, confused, not oriented. EXT:: RLE shortened, externally rotated Const: Vital Signs, click to edit/add: Vital Signs - 24 hr 03/14/24 08:48 03/14/24 11:35 03/14/24 11:40 Temperature 98.9 F 98 F Pulse Rate 68 69 Pulse Rate [Right Pulse Oximeter] 79 Respiratory Rate 16 16 16 Blood Pressure 102/52 L 114/62 Blood Pressure [Le ft Arm] Blood Pressure [Ri ght Arm] 140/72 H Pulse Oximetry 94 90 99 Oxygen Delivery Me thod Room Air Room Air Nasal Cannula Oxygen Flow Rate 4 03/14/24 11:45 03/14/24 11:50 03/14/24 11:55 Temperature Pulse Rate 71 72 70 Pulse Rate [Right Pulse Oximeter] Respiratory Rate 16 16 16 Blood Pressure 125/70 122/68 128/65 Blood Pressure [Le ft Arm] Blood Pressure [Ri ght Arm] Pulse Oximetry 99 100 100 Oxygen Delivery Me thod Nasal Cannula Nasal Cannula Nasal Cannula Oxygen Flow Rate 4 2 2 03/14/24 12:00 03/14/24 12:05 03/14/24 12:21 Temperature 97 F L 96.7 F L Pulse Rate 68 68 70 Pulse Rate [Right Pulse Oximeter] Respiratory Rate 16 16 16 Blood Pressure 121/62 116/61 106/55 L Blood Pressure [Le ft Arm] Blood Pressure [Ri ght Arm] Pulse Oximetry 100 97 90 Oxygen Delivery Me thod Room Air Room Air Room Air Oxygen Flow Rate 03/14/24 12:30 03/14/24 12:30 03/14/24 12:45 Temperature 96.9 F L Pulse Rate 67 67 Pulse Rate [Right Pulse Oximeter] Respiratory Rate 16 16 Blood Pressure 106/57 L 103/51 L Blood Pressure [Le ft Arm] Blood Pressure [Ri ght Arm] Pulse Oximetry 91 89 Oxygen Delivery Me thod Room Air Room Air Nasal Cannula Oxygen Flow Rate 2 03/14/24 13:00 03/14/24 13:15 03/14/24 13:26 Temperature 97.6 F Pulse Rate 66 66 Pulse Rate [Right Pulse Oximeter] Respiratory Rate 16 16 16 Blood Pressure 112/58 L 101/58 L Blood Pressure [Le ft Arm] Blood Pressure [Ri ght Arm] Pulse Oximetry 90 86 L 99 Oxygen Delivery Me thod Room Air Room Air Nasal Cannula Oxygen Flow Rate 2 03/14/24 13:45 03/14/24 15:00 03/14/24 15:00 Temperature 97.8 F Pulse Rate 65 Pulse Rate [Right Pulse Oximeter] Respiratory Rate 16 16 Blood Pressure 121/68 Blood Pressure [Le ft Arm] Blood Pressure [Ri ght Arm] Pulse Oximetry 99 99 Oxygen Delivery Me thod Nasal Cannula Nasal Cannula Oxygen Flow Rate 1 1 03/14/24 15:00 03/14/24 15:15 03/14/24 16:00 Temperature 97.8 F 99.4 F Pulse Rate 74 75 79 Pulse Rate [Right Pulse Oximeter] Respiratory Rate 16 16 18 Blood Pressure 149/77 H 145/77 H 161/82 H Blood Pressure [Le ft Arm] Blood Pressure [Ri ght Arm] Pulse Oximetry 96 96 99 Oxygen Delivery Me thod Nasal Cannula Nasal Cannula Nasal Cannula Oxygen Flow Rate 1 1 1 03/14/24 17:00 03/14/24 18:00 03/14/24 22:18 Temperature 99.7 F H 99.5 F 99.4 F Pulse Rate 84 84 Pulse Rate [Right Pulse Oximeter] 84 Respiratory Rate 16 16 16 Blood Pressure 123/79 134/74 Blood Pressure [Le ft Arm] 139/61 Blood Pressure [Ri ght Arm] Pulse Oximetry 97 95 95 Oxygen Delivery Me thod Nasal Cannula Room Air Room Air Oxygen Flow Rate 1 03/15/24 01:10 03/15/24 03:36 Temperature 97.8 F Pulse Rate Pulse Rate [Right Pulse Oximeter] 76 Respiratory Rate 16 14 Blood Pressure Blood Pressure [Le ft Arm] 151/77 H Blood Pressure [Ri ght Arm] Pulse Oximetry 98 97 Oxygen Delivery Me thod Room Air Room Air Oxygen Flow Rate Labs Labs: Laboratory Results - last 24 hr 03/14/24 03/15/24 05:40 05:40 WBC 12.02 H RBC 3.52 L Hgb 11.3 L Hct 33.8 MCV 96 MCH 32 MCHC 33 Plt Count 236 Sodium 134 L Potassium 4.0 Chloride 103 Carbon Dioxide 24 Anion Gap 7 BUN 25 Creatinine 0.4 L Estimated GFR 99 Glucose 209 H Hemoglobin A1c 9.0 H Calcium 8.7
[2024-03-15] MEDS: INSULIN ASPART 100 UNIT/ML SUBCUT ×4 (09:15→20:58)
[2024-03-15] MEDS: SENNOSIDES/DOCUSATE TABLET 1 TAB PO (09:16)
[2024-03-15] MEDS: ASPIRIN 81 MG TABLET EC PO ×2 (09:16→21:00)
--- NOTE | 2024-03-15 12:00 | P.ORPN_ITS ---
Subjective Subjective Date Seen: 03/15/24 Principal diagnosis: Status postop day 1, right femoral neck fracture ORIF Interval history: Patient is a poor historian due to baseline Alzheimer's dementia. Patient's daughter in the room provides report as well as nurse. No acute events over night. Patient did pull out her IV this morning. Perioperative IV antibiotics are complete. She is receiving IV fluids to improve urine output. Pain managed with scheduled and PRN medications, ice. Trying to keep administration of oral narcotics infrequent to prevent narcotic induced delirium. DVT prophylaxis: 81 mg aspirin by mouth twice daily, SCDs, walking. Ortho Exam Narrative Exam Narrative: -Patient appears comfortable in recliner, a bit agitated/anxious; no apparent acute distress. She continues to converse, nonlinear conversation pattern -Alert to self -Operative hip mildly swollen; soft tissues supple; no obvious erythema. No significant ecchymosis. Warmth appropriate -Surgical dressings clean, dry, intact; no obvious drainage, no erythematous streaking peripheral to the bandage -Bilateral calves soft and supple; no significant swelling, edema, tenderness, erythema, discoloration, warmth, or palpable cords -2+ DP/PT pulses, intact dermatomes and myotomes distally Const Vital Signs, click to edit/add: Vital Signs - 24 hr 03/14/24 12:05 03/14/24 12:21 03/14/24 12:30 Temperature 97 F L 96.7 F L Pulse Rate 68 70 Pulse Rate [Right Pulse Oximeter] Respiratory Rate 16 16 Blood Pressure 116/61 106/55 L Blood Pressure [Left Arm] Pulse Oximetry 97 90 Oxygen Delivery Method Room Air Room Air Room Air Oxygen Flow Rate 03/14/24 12:30 03/14/24 12:45 03/14/24 13:00 Temperature 96.9 F L Pulse Rate 67 67 66 Pulse Rate [Right Pulse Oximeter] Respiratory Rate 16 16 16 Blood Pressure 106/57 L 103/51 L 112/58 L Blood Pressure [Left Arm] Pulse Oximetry 91 89 90 Oxygen Delivery Method Room Air Nasal Cannula Room Air Oxygen Flow Rate 2 03/14/24 13:15 03/14/24 13:26 03/14/24 13:45 Temperature 97.6 F 97.8 F Pulse Rate 66 65 Pulse Rate [Right Pulse Oximeter] Respiratory Rate 16 16 16 Blood Pressure 101/58 L 121/68 Blood Pressure [Left Arm] Pulse Oximetry 86 L 99 99 Oxygen Delivery Method Room Air Nasal Cannula Nasal Cannula Oxygen Flow Rate 2 1 03/14/24 15:00 03/14/24 15:00 03/14/24 15:00 Temperature 97.8 F Pulse Rate 74 Pulse Rate [Right Pulse Oximeter] Respiratory Rate 16 16 Blood Pressure 149/77 H Blood Pressure [Left Arm] Pulse Oximetry 99 96 Oxygen Delivery Method Nasal Cannula Nasal Cannula Oxygen Flow Rate 1 1 03/14/24 15:15 03/14/24 16:00 03/14/24 17:00 Temperature 99.4 F 99.7 F H Pulse Rate 75 79 84 Pulse Rate [Right Pulse Oximeter] Respiratory Rate 16 18 16 Blood Pressure 145/77 H 161/82 H 123/79 Blood Pressure [Left Arm] Pulse Oximetry 96 99 97 Oxygen Delivery Method Nasal Cannula Nasal Cannula Nasal Cannula Oxygen Flow Rate 1 1 1 03/14/24 18:00 03/14/24 22:18 03/15/24 01:10 Temperature 99.5 F 99.4 F Pulse Rate 84 Pulse Rate [Right Pulse Oximeter] 84 Respiratory Rate 16 16 16 Blood Pressure 134/74 Blood Pressure [Left Arm] 139/61 Pulse Oximetry 95 95 98 Oxygen Delivery Method Room Air Room Air Room Air Oxygen Flow Rate 03/15/24 03:36 03/15/24 08:00 03/15/24 08:00 Temperature 97.8 F 97.7 F Pulse Rate Pulse Rate [Right Pulse Oximeter] 76 81 Respiratory Rate 14 18 18 Blood Pressure Blood Pressure [Left Arm] 151/77 H 154/72 H Pulse Oximetry 97 98 98 Oxygen Delivery Method Room Air Room Air Room Air Oxygen Flow Rate 0 03/15/24 11:10 Temperature 98.9 F Pulse Rate Pulse Rate [Right Pulse Oximeter] 89 Respiratory Rate 18 Blood Pressure Blood Pressure [Left Arm] 153/107 H Pulse Oximetry 96 Oxygen Delivery Method Nasal Cannula Oxygen Flow Rate Assessment and Plan Assessment and plan (1) Closed fracture of right hip: Problem details: -s/p ground level fall -CT shows nondisplaced fracture in the right femoral neck with fracture lines involving the greater tuberosity and intertrochanteric region -initial documentation shows son wishing for comfort cares. ED provider discussed with son as well as Orthopedic Surgery. Plan for surgical repair tomorrow -pain management with scheduled Tylenol, lidocaine patch, ice, positioning. Son initially declines use of narcotics as reportedly worsens delirium but understanding of need for humane use of low dose narcotics perioperatively -hip precautions. NWDinesh RLNeelam. Indwelling youssef cath -Ortho Surgery consulted s/p ORIF . -Mobilize with physical therapy and occupational therapy. Weight bear as tolerated right lower extremity. - Postoperative prophylactic antibiotics x2 doses - DVT prophylaxis: aspirin 81 mg b.i.d. for 35 days, SCDs - Follow-up in Orthopedic Clinic in 1-2 weeks. Status: Acute (2) Fall: Problem details: -witnessed ground level fall at [facility], [facility]. Acute on chronic, recurrent falls -resulting in right hip fracture -struck head, no LOC, no headache. Not anticoagulated. Son declined head CT for further evaluation Status: Acute (3) Type 1 diabetes mellitus: Problem details: -A1c in 2022 was >9. Repeat ordered -home glargine is 9 units at HS. BS is 383 currently. Give 3 units glargine tonight, NPO -glucose checks ACHS, insulin sliding scale - CGM and accucheck significantly different so will use our accucheck Status: Acute (4) Dementia of the Alzheimer's type with late onset without behavioral disturbance: Problem details: -prior to admission, son reporting DNR/DNI, comfort cares. Would now like to proceed with surgery. As above, unknown rehab capabilities Status: Acute Plan - PT/OT consult for education and assistance. - Social work consult for discharge planning - plan is to return to group home facility, memory care unit at [facility] 03/16/2024 - Prescribed analgesics as needed - continue to limit oral narcotic use. Lidocaine patches will likely be helpful - DVT prophylaxis: 81 mg aspirin by mouth twice daily, walking, and SCDs - Anticipation is for discharge to [facility] unit where she resides 03/16/2024 if the patient remains medically stable, pain is controlled, and they are safe with mobilization.
--- NOTE | 2024-03-15 18:25 | PC.NURSE ---
Pt alert to self. Pt seemed comfortable throughout the shift. Pt up with assist of two with walker and gait belt. Pt is nonsensical when speaking; Pt has dementia at baseline. Pt removed IV this AM; per MD no need to reinsert new IV. Pt had family at bedside most of day. Pt tearful throughout the day and anxious per Pt?s family this is baseline for Pt. Pt?s youssef removed per MD order.?
[2024-03-15] MEDS: MELATONIN 3 MG TABLET PO (18:36)
[2024-03-15] MEDS: INSULIN GLARGINE,HUM.REC.ANLOG 100 UNIT/ML INSULN.PEN 10 UNIT SUBCUT (20:58)
[2024-03-15] MEDS: LIDOCAINE 5% PATCH 1 PATCH TRANSDERMA (22:18)
[2024-03-16 00:12] VITALS: BP 117/58; PULSE 78; RESP 16; TEMP 36.8; O2SAT 98
[2024-03-16 03:40] VITALS: BP 134/72; PULSE 80; RESP 16; TEMP 36.3; O2SAT 98
[2024-03-16] MEDS: ACETAMINOPHEN 325 MG TABLET 650 MG PO ×2 (03:42→11:12)
--- NOTE | 2024-03-16 06:36 | PC.NURSE ---
End of shift [id number]: Pt has been alert & disoriented overnight. VSS and afebrile. She has not been out of bed & was repositioned throughout the night. Ax2 with gait belt and walker for ambulation during awake hours. Pt has not slept at all overnight. Scheduled Tylenol given per eMAR but PRN melatonin was given in the previous shift so that was not available. She?s been pleasantly confused & fidgety, no agitation. Pt does not have IV access, MD dick. Dexcom alerted critical low blood sugar twice with readings of 73 (snack given) and 96. Finger sticks were done both times with compared results similar (73 vs 86 and 96 vs 113). Pt is from [facility] and the plan is to return back today. ?
[2024-03-16 06:43] LABS: Hematocrit 32.2 % (33.0-51.0); Hemoglobin* 10.8 gm/dL (12.0-16.0); Mean Corpuscular HGB Conc 34 gm/dL (32-36); Mean Corpuscular Hemoglobin 32 pg (26-34); Mean Corpuscular Volume 95 fL (80-100); Platelet Count* 243 K/uL (140-440); Red Blood Count 3.39 m/uL (4.00-5.20); White Blood Count* 9.28 K/uL (4.50-11.00)
[2024-03-16 06:47] LABS: Slide Review Reflex No
[2024-03-16 06:51] LABS: Chloride* 103 mmol/L (96-114); Potassium* 3.2 mmol/L (3.6-5.1); Sodium* 137 mmol/L (135-149)
[2024-03-16 06:54] LABS: Anion Gap 5 mEq/L (7-15); Blood Urea Nitrogen* 23 mg/dL (7-30); Carbon Dioxide* 29 mmol/L (20-32); Creatinine* 0.4 mg/dL (0.5-1.5); Estimated Glomerular Filt Rate 99 ml/min
[2024-03-16 06:55] LABS: Calcium* 8.8 mg/dL (8.4-10.6); Glucose* 73 mg/dL (60-115)
[2024-03-16 08:20] VITALS: BP 155/77; PULSE 79; RESP 18; TEMP 37; O2SAT 94
[2024-03-16] MEDS: ASPIRIN 81 MG TABLET EC PO (08:56)
[2024-03-16] MEDS: SENNOSIDES/DOCUSATE TABLET 1 TAB PO (08:56)
--- NOTE | 2024-03-16 10:21 | PM.IMPN1 ---
Progress Note: A&P Assessment and plan (1) Closed fracture of right hip: Problem details: -s/p ground level fall -CT shows nondisplaced fracture in the right femoral neck with fracture lines involving the greater tuberosity and intertrochanteric region -initial documentation shows son wishing for comfort cares. ED provider discussed with son as well as Orthopedic Surgery. In time patient's son changed decision and requested surgical stabilization of the fracture. -pain management with scheduled Tylenol, lidocaine patch, ice, positioning. Son initially declines use of narcotics as reportedly worsens delirium but understanding of need for humane use of low dose narcotics perioperatively -Indwelling youssef catheter perioperatively, has since been removed -Ortho Surgery consulted s/p ORIF . -Mobilize with physical therapy and occupational therapy. Weight bear as tolerated right lower extremity. - Postoperative prophylactic antibiotics x2 doses - DVT prophylaxis: aspirin 81 mg b.i.d. for 35 days, SCDs - Follow-up in Orthopedic Clinic in 1-2 weeks. Status: Acute (2) Fall: Problem details: -witnessed ground level fall at [facility], [facility] [place]. Acute on chronic, recurrent falls -resulting in right hip fracture -struck head, no LOC, no headache. Not anticoagulated. Son declined head CT for further evaluation Status: Acute (3) Type 1 diabetes mellitus: Problem details: -A1c in 12/2022 was 9.25 . Repeat 02/2024 9.0. -home glargine is 9 units at HS. BS is 383 on admission. -glucose checks ACHS, insulin sliding scale - CGM and accucheck significantly different so will use our accucheck -continue to adjust glargine insulin to lower risk of hypoglycemia Status: Acute (4) Dementia of the Alzheimer's type with late onset without behavioral disturbance: Problem details: -prior to admission, son reporting DNR/DNI, comfort cares. -PT and OT working with patient to help with decision about discharge disposition planning -social studies teacher working with discharge planning options Status: Acute (5) Postoperative anemia due to acute blood loss: Problem details: -baseline hemoglobin around 12. Hemoglobin 03/16/2020 for of 10.8. -monitor Status: Acute (6) Hypokalemia: Problem details: -potassium level of 3.2 on 03/16/2024 -potassium chloride 40 mEq orally on 03/16/2024, monitor Status: Acute Plan 1. I called Mrs. Madsen's son, Rajeev Madsen, , and updated him on his mother's condition. 2. Continue to work toward establishing a safe discharge disposition plan. 3. Continue with evaluative and supportive efforts here in the hospital. 4. Continue with supportive efforts including decrease the dose of glargine insulin from 10 units at bedtime to 8 units at bedtime tonight. 5. Potassium chloride 40 mEq orally x1 dose only and continue to monitor potassium. 6. Continue to monitor hemoglobin postoperatively. 7. Continue with DNR DNI resuscitation status. 8. Mr. Gus Madsen agreeable with above stated plans and recommendations. Time Spent With Patient Total time spent: 40 minutes Subjective Date Seen: 03/16/24 Interval history: Hospital day 4. Postoperative day 2. Status post open reduction internal fixation of right femoral neck fracture. 83-year-old woman with advanced dementia of the Alzheimer's type, late onset. No behavioral disturbances. Fall from standing state culminated in right femoral neck fracture for which she underwent open reduction and internal fixation on 03/14/[address] Waters, orthopedic surgery. Tolerating increased activities. Able to stand, walk and transfer with assistance and the use of the ambulatory device. Tolerating oral intakes. No nausea or vomiting. Said to have diabetes mellitus type 1 and is on her insulin with blood sugars adequately managed at this time. Completed perioperative antibiotic prophylaxis. Receiving aspirin 81 mg twice daily for venous thromboembolism prophylaxis. Awaiting safe discharge plan before considering discharge. Exam Narrative: Exam Narrative: I examine her in her hospital room. Appears comfortable and in no acute distress. Able to transfer and ambulate with the use of an ambulatory device and the assist of 1. Not able to carry out a meaningful dialogue or conversation at all. Able to feed herself without coughing or sputtering or gagging. No focal motor neurologic deficits. Lungs are clear to auscultation without wheezing, rhonchi, or rales. Heart tones with regular rhythm, normal S1-S2. Abdomen with active bowel sounds, soft, nontender. Blood sugars yesterday 200-300. Blood sugars today 72-113. Weight today 52 kg. Weight yesterday 53 kg. No longer receiving IV fluids. Const: Vital Signs, click to edit/add: Vital Signs - 24 hr 03/15/24 11:10 03/15/24 15:45 03/15/24 15:45 Temperature 98.9 F 98.8 F Pulse Rate [Right Pulse Oximeter] 89 92 Respiratory Rate 18 16 16 Blood Pressure [Le ft Arm] 153/107 H 130/60 Blood Pressure [Ri ght Arm] Pulse Oximetry 96 99 99 Oxygen Delivery Me thod Nasal Cannula Nasal Cannula Nasal Cannula Oxygen Flow Rate 0 0 03/15/24 15:45 03/15/24 19:57 03/15/24 23:00 Temperature 98.8 F Pulse Rate [Right Pulse Oximeter] 92 91 78 Respiratory Rate 18 16 Blood Pressure [Le ft Arm] 145/71 H Blood Pressure [Ri ght Arm] Pulse Oximetry 95 Oxygen Delivery Me thod Room Air Oxygen Flow Rate 03/15/24 23:00 03/16/24 00:12 03/16/24 03:40 Temperature 98.2 F 97.4 F L Pulse Rate [Right Pulse Oximeter] 78 80 Respiratory Rate 16 16 16 Blood Pressure [Le ft Arm] Blood Pressure [Ri ght Arm] 117/58 L 134/72 Pulse Oximetry 98 98 98 Oxygen Delivery Me thod Room Air Room Air Room Air Oxygen Flow Rate 0 0 03/16/24 08:20 03/16/24 08:20 Temperature 98.6 F Pulse Rate [Right Pulse Oximeter] 79 Respiratory Rate 18 18 Blood Pressure [Le ft Arm] 155/77 H Blood Pressure [Ri ght Arm] Pulse Oximetry 94 94 Oxygen Delivery Me thod Room Air Room Air Oxygen Flow Rate Labs Labs: Laboratory Results - last 24 hr 03/16/24 05:47 WBC 9.28 RBC 3.39 L Hgb 10.8 L Hct 32.2 L MCV 95 MCH 32 MCHC 34 Plt Count 243 Sodium 137 Potassium 3.2 L Chloride 103 Carbon Dioxide 29 Anion Gap 5 L BUN 23 Creatinine 0.4 L Estimated GFR 99 Glucose 73 Calcium 8.8 Magnesium 2.0
[2024-03-16] MEDS: POTASSIUM CHLORIDE 10 MEQ CAPSULE ER 40 MEQ PO (11:12)
--- NOTE | 2024-03-16 11:12 | PC.SOCIAL ---
Addendum entered and electronically signed by HEAVEN Harley 03/16/24 12:53: Discharge planning: Pt will be discharged back to [facility] today, as [facility] states they can take her back today. Pt needs to arrive by 2pm. warehouse worker secure emailed the discharge orders to Sharon at [facility]. Non-emergent EMS will pick the pt up at 1:30pm. Non-emergent EMS transport cost should be covered by pt's insurance due to pt's Dimentia diagnosis and hip fracture. Pt's son, Rajeev, was notified and is in agreement with this plan. Social work to follow-up as needed. Original Note: Discharge planning: warehouse worker has been in contact with [facility] and pt's son, Rajeev, this morning about pt being able to return to [facility] following her fall, resulting in a hip fracture and surgery. Rajeev stated that he signed papers at [facility] the other day when his mother went to the hospital stating that he wanted her bed held. warehouse worker sent updated notes to Sharon at [facility] this morning and is waiting to hear back from them. Pt's son, Rajeev, also said that family would not be able to transport and that pt will need to transport via non-emergent EMS. Social work to follow-up as needed.
[2024-03-16] MEDS: INSULIN ASPART 100 UNIT/ML SUBCUT (11:42)
--- NOTE | 2024-03-16 11:50 | P.DS_ITS ---
DS: Providers Provider Date Seen: 03/16/24 Date of admission: 03/14/24 07:49 Primary care physician: Erik Ashton MD Admitting Clinician: Galina Waters MD Consults: 03/13/24 22:53 Consult to Occupational Therapy [CONS] Routine Comment: Reason(s) for OT Consult:: Evaluate and Treat Any Restrictions?:: No Restrictions Consult to Physical Therapy [CONS] Routine Comment: Reason(s) for PT Consult:: Evaluate and Treat Any Restrictions?:: No Restrictions Consult to Lithoplate Maker [CONS] Routine Comment: Reason for Consult:: Social Service Consult 03/14/24 06:00 Consult to Physician [CONS] Routine Comment: Consulting Provider: Josh Waters Has provider been notified: No 03/14/24 12:31 Consult to Occupational Therapy [CONS] Routine Comment: Reason(s) for OT Consult:: Evaluate and Treat Any Restrictions?:: See Comment Comment: evaluate and treat s/p right hip fracture Consult to Physical Therapy [CONS] Routine Comment: Reason(s) for PT Consult:: Evaluate and Treat Any Restrictions?:: Wt Bearing as Tolerated Comment: s/p right hip ORIF Consult to Lithoplate Maker [CONS] Routine Comment: Reason for Consult:: Discharge Planning Needs Attending Physician on discharge: Anson Henriquez MD Date of Discharge: 03/16/24 DS: Diagnosis Discharge Diagnosis (1) Fall: Status: Acute Problem details: -witnessed ground level fall at [facility], [facility]. Acute on chronic, recurrent falls -resulting in right hip fracture -struck head, no LOC, no headache. Not anticoagulated. Son declined head CT for further evaluation (2) Closed fracture of right hip: Status: Acute Problem details: -s/p ground level fall -CT shows nondisplaced fracture in the right femoral neck with fracture lines involving the greater tuberosity and intertrochanteric region -initial documentation shows son wishing for comfort cares. ED provider discussed with son as well as Orthopedic Surgery. In time patient's son changed decision and requested surgical stabilization of the fracture. -pain management with scheduled Tylenol, lidocaine patch, ice, positioning. Son initially declines use of narcotics as reportedly worsens delirium but understanding of need for humane use of low dose narcotics perioperatively -Indwelling youssef catheter perioperatively, has since been removed -Ortho Surgery consulted s/p ORIF . -Mobilize with physical therapy and occupational therapy. Weight bear as tolerated right lower extremity. Will need ongoing PT and OT support for short period of time. - Postoperative prophylactic antibiotics x2 doses - DVT prophylaxis: aspirin 81 mg b.i.d. for 35 days, SCDs - Follow-up in Orthopedic Clinic in 1-2 weeks. (3) Dementia of the Alzheimer's type with late onset without behavioral disturbance: Status: Acute Problem details: -prior to admission, son reporting DNR/DNI, comfort cares. -PT and OT working with patient to help with decision about discharge disposition planning -social media marketer was able to set up a plan for patient to return back to [facility] with increased PT and OT services for short period of time (4) Type 1 diabetes mellitus: Status: Acute Problem details: -A1c in 12/2022 was 9.25 . Repeat 02/2024 9.0. -home glargine is 9 units at HS. BS is 383 on admission. -glucose checks ACHS, insulin sliding scale - CGM and accucheck significantly different so will use our accucheck -continue to adjust glargine insulin to lower risk of hypoglycemia (5) Postoperative anemia due to acute blood loss: Status: Acute Problem details: -baseline hemoglobin around 12. Hemoglobin 03/16/2020 for of 10.8. -monitor (6) Hypokalemia: Status: Acute Problem details: -potassium level of 3.2 on 03/16/2024 -potassium chloride 40 mEq orally on 03/16/2024, monitor DS: Summary Hospital Course Hospital Course: 83-year-old woman with advanced dementia of the Alzheimer's type, late onset presented to the hospital on 03/13/2024 with right hip pain status post fall from standing state on the date of presentation and was found to have a right femoral neck fracture. Underwent open reduction and internal fixation on 03/14/[address] Waters, orthopedic surgery, without complications. Tolerated increased activity subsequently and is discharged back to [facility] with increased services. For details of other problems please see diagnosis section above. Status at Discharge Functional status at discharge: uses cane/walker Overall status at discharge: patient is not back to baseline Time Spent with Patient Time attestation: Total time spent providing and/or coordinating discharge services: Time spent: Greater than 30 minutes Exam Narrative: Exam Narrative: I examine her in her hospital room. Appears comfortable and in no acute distress. Able to transfer and ambulate with the use of an ambulatory device and the assist of 1. Not able to carry out a meaningful dialogue or conversation at all. Able to feed herself without coughing or sputtering or gagging. No focal motor neurologic deficits. Lungs are clear to auscultation without wheezing, rhonchi, or rales. Heart tones with regular rhythm, normal S1-S2. Abdomen with active bowel sounds, soft, nontender. Blood sugars yesterday 200-300. Blood sugars today 72-113. Weight today 52 kg. Weight yesterday 53 kg. No longer receiving IV fluids. Const: Vital Signs, click to edit/add: Vital Signs - 24 hr 03/15/24 15:45 03/15/24 15:45 03/15/24 15:45 Temperature 98.8 F Pulse Rate [Right Pulse Oximeter] 92 92 Respiratory Rate 16 16 Blood Pressure [Le ft Arm] 130/60 Blood Pressure [Ri ght Arm] Pulse Oximetry 99 99 Oxygen Delivery Me thod Nasal Cannula Nasal Cannula Oxygen Flow Rate 0 0 03/15/24 19:57 03/15/24 23:00 03/15/24 23:00 Temperature 98.8 F Pulse Rate [Right Pulse Oximeter] 91 78 Respiratory Rate 18 16 16 Blood Pressure [Le ft Arm] 145/71 H Blood Pressure [Ri ght Arm] Pulse Oximetry 95 98 Oxygen Delivery Me thod Room Air Room Air Oxygen Flow Rate 03/16/24 00:12 03/16/24 03:40 03/16/24 08:20 Temperature 98.2 F 97.4 F L Pulse Rate [Right Pulse Oximeter] 78 80 Respiratory Rate 16 16 18 Blood Pressure [Le ft Arm] Blood Pressure [Ri ght Arm] 117/58 L 134/72 Pulse Oximetry 98 98 94 Oxygen Delivery Me thod Room Air Room Air Room Air Oxygen Flow Rate 0 0 03/16/24 08:20 Temperature 98.6 F Pulse Rate [Right Pulse Oximeter] 79 Respiratory Rate 18 Blood Pressure [Le ft Arm] 155/77 H Blood Pressure [Ri ght Arm] Pulse Oximetry 94 Oxygen Delivery Me thod Room Air Oxygen Flow Rate DS: Data Data Completed and Pending Completed studies during hospitalization: Procedures Replacement of Right Knee Joint with Synthetic Substitute, Cemented, Open Approach (04/18/22) Labs on day of discharge: Labs from last 24 hours 03/16/24 05:47 WBC 9.28 RBC 3.39 L Hgb 10.8 L Hct 32.2 L MCV 95 MCH 32 MCHC 34 Plt Count 243 Sodium 137 Potassium 3.2 L Chloride 103 Carbon Dioxide 29 Anion Gap 5 L BUN 23 Creatinine 0.4 L Estimated GFR 99 Glucose 73 Calcium 8.[address] scan - right hip: Attestation: I have reviewed the pertinent imaging results. Radiologist's impression: 1. There is a nondisplaced fracture in the right femoral neck with fracture lines involving the greater tuberosity and intertrochanteric region. Discharge Plan Discharge Disposition: [facility] Date of Admission: 03/14/24 07:49 Attending Provider on Discharge: Anson Henriquez Discharge Medications: New aspirin 81 mg tablet,delayed release (DR/EC) 81 mg PO BID Qty: 66 0RF Rx Instructions: Medication to help prevent blood clots postoperatively; take TWICE daily. sennosides-docusate sodium [Senna-S] 8.6-50 mg tablet 1 - 2 tab-cap PO BID PRN (Reason: constipation) Qty: 30 0RF Rx Instructions: Hold medication if experiencing loose stools. lidocaine HCl-menthol 4-1 % adhesive patch,medicated 1 patch topical BID PRN (Reason: pain) Qty: 15 0RF Rx Instructions: may leave on area for up to 8 hrs acetaminophen 325 mg Tablet 650 mg PO Q6H 30 Days Qty: 240 0RF bisacodyl 10 mg Suppository 10 mg [place] DAILY PRN (Reason: Constipation) 14 Days Qty: 7 0RF Continued insulin lispro 100 unit/mL insulin pen 5 - 7 unit subcut TIDWM Rx Instructions: 5 UNITS WITH BREAKFAST 7 UNITS WITH LUNCH 6 UNITS WITH DINNER AND SLIDING SCALE CORRECTION insulin glargine [Lantus Solostar U-100 Insulin] 100 unit/mL (3 mL) insulin pen 11 unit subcut HS (DME) FreeStyle Vicky 2 Sensor Kit See Rx Instructions .ROUTE .MEDSUPPLY Qty: 1 Patient Comments: [NO ORIGINAL SIG] Rx Instructions: As directed trazodone 50 mg tablet 25 mg PO QPM PRN escitalopram oxalate [Lexapro] 20 mg tablet 20 mg PO DAILY Discontinued acetaminophen 500 mg capsule 500 - 1,000 mg PO Q6H PRN (Reason: pain) Discharge Orders: Discharge Order (Routine); Ordered 03/16/24 Ordered By: Anson Henriquez Activity Level: Activity as Tolerated, Up with assist, Weight Bearing as Tolerated, Use Cane and Use Walker Activity Detail: Wound: ? Remove dressing after 1 week. Remove sooner if integrity is in question. ? No immersing wound in water; showering okay; light scrub with your hand and body soap, rinse, dab dry ? Sutures are under the skin, will dissolve; allow surgical glue to come off naturally; do not scrub the wound or apply ointments/lotions ? Call our office with any redness that streaks, excessive drainage from the wound, or wound gapping. Ice/Elevate: ? Ice as needed for swelling and discomfort; elevate extremity frequently above the heart. Motion/Exercise: ? Weight bear as tolerated operative extremity (walker/cane for ambulation assistance as needed) ? Per PT/OT. ? Straight leg raises daily: 1-2 sets of 10 reps Pain Medications: ? Oral narcotic as prescribed (limit these). Wean as tolerated. Acetaminophen PRN. Lidocaine patch PRN. Blood Clot Prevention (DVT): ? Medication: 35 days of 81 mg aspirin by mouth twice daily Dental: ? No elective dental work for 6 months post-op. If there is an urgent/emergent dental need, contact our office for an antibiotic prescription. Seek Care from you Primary Care Provider if you experience the following issues in the postoperative phase and beyond: ? Bacterial infections such as: pneumonia, bacterial skin infection (cellulitis), UTI, high fever, chills unrelated to the operative body part - call your primary care physician urgently for treatment in hopes to protect your health and the metal implant. Referrals: ? PT, OT per patient preference - evaluate & treat (gait training, ROM, ADLs) Vaccines: ? No vaccines until 4-6 weeks postop Follow up: ? PA-C visit in 1 week. ? Ortho surgeon follow-up in 6 weeks; repeat radiographs AP pelvis, cross table lateral operative hip If there are any acute concerns regarding your surgery, please call our orthopedic clinic ([phone]) Discharge Diet: Diabetic Follow Up Appointments: Erik Ashton MD [Primary Care Provider] - Sabrina Cavazos MD [Referring] - Forms: [employer] Info Instructions Admit to: SNF Discharge Potential: Poor Length of Stay: >90 days Can use facility standing orders?: Yes Code Status: DNR/DNI Rehab Potential: Fair Therapy: Physical Therapy and Occupational Therapy Therapy Orders: Evaluate and Treat Oxygen: No Urinary Catheter: No Glucose Checks: TID WM Orders are good >30 days: Yes Signature: Anson Henriquez
--- NOTE | 2024-03-16 13:36 | PC.NURSE ---
Pt. transferred to [facility] via [facility]. [id number] report given to Nurse Mishel at [facility].
== END 2024-03-16 13:34 | DRG 481 ==
LOC: ED 22:10 → MEDSURG 22:42
PROVIDERS: Orthopaedic Surgery; Student in an Organized Health Care Education/Training Program; Admitting Provider Family Medicine; Emergency Provider Family Medicine; PCP Family Medicine; Referring Provider Physician Assistant; Visit Provider Family Medicine
PROC: 0QH604Z Insertion of Internal Fixation Device into Right Upper Femur, Open Approach (ICD-10-PCS; principal; 2024-03-14 09:00)
DX: S72.034A Nondisplaced midcervical fracture of right femur, initial encounter for closed fracture (principal); D62 Acute posthemorrhagic anemia; G89.18 Other acute postprocedural pain; W18.30XA Fall on same level, unspecified, initial encounter; Z91.81 History of falling; Y92.099 Unspecified place in other non-institutional residence as the place of occurrence of the external cause; E10.40 Type 1 diabetes mellitus with diabetic neuropathy, unspecified; Z79.4 Long term (current) use of insulin; G30.1 Alzheimer's disease with late onset; F02.80 Dementia in other diseases classified elsewhere, unspecified severity, without behavioral disturbance, psychotic disturbance, mood disturbance, and anxiety; E87.6 Hypokalemia; I10 Essential (primary) hypertension; E78.5 Hyperlipidemia, unspecified
CPT/HCPCS: 01210; 36415; 64450; 73502; 73700; 76000; 76942; 80048; 82962; 83036; 83735; 85025; 85027; 85610; 87081; 93005; 97110; 97116; 97161; 97165; 97535; 99100; 99284; 99285; A9270; C1713; G0378; J0665; J0690; J1100; J1815; J2270; J2371; J2405; J2704; J2795; J3010; J3490; J7030; J7120

== ENCOUNTER 2024-03-16 13:39 | Outpatient (CLI) | payer MEDICARE, SELFPAY | END 2024-03-16 13:40 | disposition home or self-care (01) | LOC: AMB 03-18 03:55 | PROVIDERS: PCP Family Medicine; Visit Provider Family Medicine | DX: F03.90 Unspecified dementia, unspecified severity, without behavioral disturbance, psychotic disturbance, mood disturbance, and anxiety (principal) | CPT/HCPCS: A0425; A0426 ==